=== PATIENT | female | born 1975 | race Caucasian/White ===

== ENCOUNTER 2024-03-25 07:40 | Observation (INO) ==
--- NOTE | 2024-03-15 14:50 | Anesthesiology Consultation ---
Date of Service March 15, 2024 Assessment & Plan (1) Encounter for pre-operative examination: Chart Review Chart Review: Acceptable Risk for Surgery and Patient NOT seen in Pre Admission Testing Infectious Disease screening: Per PAT nursing assessment on 03/15/24, No known infectious disease contacts in past 10 days or current infectious disease symptoms. No recent travel outside the country. History Surgery Operation Date: 03/25/24 07:00 Proposed Procedures p Total Laparoscopic Hysterectomy, Bilateral Salpingectomy and Cystoscopy, Possible Laparotomy as any Indicated Procedure, Intrauterine Device Removal - Connor Adams MD Height/Weight Height: 5 ft 6 in Weight: 92.986 kg Allergies Allergy/AdvReac Type Severity Reaction Status Date / Time No Known Allergies Allergy Verified 03/15/24 13:38 Medications Home Medications Medication Instructions Recorded Confirmed Last Taken atogepant 60 mg tablet (Qulipta) 60 mg PO QPM 03/15/24 03/15/24 Unknown fexofenadine 180 mg tablet 180 mg PO QPM 03/15/24 03/15/24 Unknown montelukast 10 mg tablet 10 mg PO PM 03/15/24 03/15/24 Unknown rizatriptan 10 mg tablet 0 mg PO .COMPLEX PRN migraines 03/15/24 03/15/24 Unknown Past Medical History Medical History (Updated 03/15/24 @ 15:02 by Rosanne Carrillo PA-C) Environmental allergies History of asthma inhaler in past, resolved in her 20's History of use of contraceptive intrauterine device (IUD) Hx of migraines approx. 2 per month, much better since quilipta IUD (intrauterine device) in place Obesity Past Surgical History Surgical History (Updated 03/15/24 @ 15:02 by Rosanne Carrillo PA-C) History of hysteroscopy D&C, hysteroscopy Remove/insert IUD Social History Smoking Status: Never smoker Do You Dip or Chew Tobacco: No Hx Alcohol Use: No Hx Substance Use: No substance use type: does not use Testing Laboratory Results 03/14/24: WBC: 7.41 H/H: 13.9/42.2 PLATELETS: 322
[~2024-03-25 07:40] MED LIST: DEXAMETHASONE SOD INJ 4 MG/ML VIAL ONE; KETOROLAC 30 MG/ML VIAL ONE; LIDOCAINE 2% 2 ML VIAL/AMP(20MG/ML) INFIL ONE; MIDAZOLAM HCL 1 MG/ML 2ML VIAL ONE; ONDANSETRON INJ 2 MG/ML 2 ML VIAL ONE; PROPOFOL IV EMULSION 10 MG/ML 20 ML VIAL IV ONE; ROCURONIUM BROMIDE 10 MG/ML 5 ML VIAL IV ONE
[2024-03-25] MEDS ORDERED: fentaNYL citrate PF 100 MCG/2 ML VIAL ONE (07:41)
[2024-03-25] MEDS: LACTATED RINGER'S 1,000 ML IV SCH ×2 (08:32)
--- NOTE | 2024-03-25 09:20 | History & Physical Bridge Note ---
Date of Service March 25, 2024 History & Physical Bridge Note I have examined the patient, reviewed the History & Physical and in the interval since the performance of the History & Physical I have noted the following changes of clinical significance: no changes noted
[2024-03-25] MEDS ORDERED: ATROPINE SULFATE 0.1 MG/ML 10ML SYR IV PRN (09:24)
[2024-03-25] MEDS ORDERED: ePHEDrine sulfate 50 MG/ML AMP IV PRN (09:24)
[2024-03-25] MEDS ORDERED: ACETAMINOPHEN 1000 MG/100 ML IV IV ONE (09:27)
[2024-03-25] MEDS: ceFAZolin 2000MG 2,000 MG/15 ML SYR IV SCH (09:35)
[2024-03-25] MEDS ORDERED: ROCURONIUM BROMIDE 10 MG/ML 5 ML VIAL IV ONE (10:00)
[2024-03-25] MEDS ORDERED: GLYCOPYRROLATE 0.2 MG/ML VIAL ONE (10:31)
[2024-03-25] MEDS ORDERED: SUGAMMADEX SODIUM 200 MG/2 ML VIAL IV ONE (10:33)
[2024-03-25] MEDS: BUPIVACAINE/EPINEPHRINE 0.5% MPF 1:200,000 30 ML VIAL ONE (11:43)
[2024-03-25] MEDS: FLOSEAL HEMOSTATIC MATRIX 10ML TOP ONE (11:48)
[2024-03-25] MEDS ORDERED: PROMETHAZINE 12.5 MG/50.5 ML BAG IV PRN (12:06)
[2024-03-25] MEDS ORDERED: MAGNESIUM HYDROXIDE SUSP 30 ML UDC PO PRN (12:06)
[2024-03-25] MEDS ORDERED: ONDANSETRON INJ 2 MG/ML 2 ML VIAL IV PRN (12:06)
[2024-03-25] MEDS ORDERED: ZOLPIDEM TARTRATE 5 MG TAB PO PRN (12:06)
--- NOTE | 2024-03-25 12:21 | Operative Report ---
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 Laparoscopic findings showed 16 weeks size fibroid uterus both ureters were identified ovaries appear grossly normal appendix appeared normal Fluids IVF:900ml urine ; 300ml EBL; 10ml Specimens Uterus and cerix, left and right fallopian tubes Drains none Anesthesia Type General Complications none Indications 1. Endometrial intraepithelial neoplasm 2. fibroid uterus Description of Procedure FINDINGS: DESCRIPTION OF PROCEDURE: The patient was prepped and draped in normal sterile fashion in the dorsal lithotomy position. Hewitt catheter was placed without difficulty. An Shopalytic uterine manipulator was placed in the uterus to help with colpotomy. Attention was paid to the abdominal part of the procedure where a supraumbilical incision was made and carried down to the fascia. Elena was used to grab the fascia. Veress needle was introduced into the abdomen at a 45-degree angle while tenting up the abdomen. Intra-abdominal placement was confirmed with a water-filled syringe. A water drop and suction test was performed. The abdomen was insufflated with CO2 gas. The Veress needle was removed and a 5 mm non bladed trocar was attached to a laparoscope was introduced into the abdomen u nder direct visualization. This was a non bladed trocar. Once inside the abdomen, laparoscope was repositioned. Inspection of the abdomen shows the findings as dictated above. Three more accessory ports were placed, two 5 mm accessory ports were placed in the lower abdomen on the contralateral side, in addition, an 11 mm trocar was placed on the left upper quadrant. General inspection of the abdomen and pelvis was performed as dictated above. There was good hemostasis. 16 week sixe fibroid uterus is present . Left and right fallopian tubes, the ureters, uterosacrals, bowels were examined and identified. LigaSure was passed through the left accessory port. The fallopian tube was identified and grabbed 4 cm from the cornua of the uterus with the LigaSure and transected. This was followed by opening of the left anterior leaf of the broad ligament. This allowed for fenestration of the posterior left broad ligament. The mid-section of the left fallopian tube, utero-ovarian and meso-ovarian pedicles were transected as well. Same procedure was performed on the contralateral side. The anterior broad ligament dissection was carried to the mid-section of the vesicouterine peritoneum over the bladder using the Harmonic scalpel. Same procedure was carried out on the contralateral side. The posterior broad ligament peritoneum was carefully dissected also from both sides over the uterosacral arch in order to displace the ureters laterally. Using traction and countertraction, the [place] retractor and irrigation probe was used to further dissect the bladder off the lower segment of the uterus. Bladder pillars and pubovesical fascia was dissected as well. Harmonic scalpel was used to obtain hemostasis where needed. Uterine manipulator was now palpable over the vaginal tissue. The right uterine pedicles were skeletonized and coagulated with the LigaSure. Good hemostasis was obtained.Myoma screw is used for additional manipulation of the fibroid in order to provide better visualization Same procedure was performed on the contralateral side. Cardinal ligaments were transected on both sides. Once good hemostasis was obtained, colpotomy was performed using the LigaSure hook from both sides.the uterine manipulator was removed. Uterus was too large to be remove din one piece through the vagina. The large uterus had to be cut in smaller pieces in order to be able to remove it through the vagina. The bulb was attached to the uterine manipulator was reinserted into the vagina to establish pneumoperitoneum. With a grasper, the remaining section of the left ovary and tube were positioned anteromedially. The left fallopian tube is grabbed with ligature and transected. The transection is done close to the ovary in order to preserve the ovarian vascular integrity. The left tube is removed through the 11 mm port leaving the left ovary left intact. Same procedures performed on the right adnexa. The right fallopian tube is also removed once again leaving the right ovary behind.Right fallopian tube specimen is also removed through the 11 mm port. Both fallopian tube specimens sent to pathology for pathological analysis EndoStitch closure device was passed through the 11 mm port on the left. Using the [place] grasper for traction, colpotomy closure was performed. The uterosacral ligaments incorporated into the closure in order to decrease the risk of prolapse. Lapro ties were used with the EndoStitch. The 11-mm trocar site was closed with a Wisam-Guillermo under direct visualization. Attention was paid to the cystoscopy part of the procedure where a cystoscope was introduced into the bladder. There are no sutures seen in the bladder. There were no gross blood seen in the bladder as well. The bubble sign is noted showing the bladder was a close cavity. Both ureters were seen and there was efflux from both uterus. The skin incisions are closed with Dermabond, except for the 11-mm trocar site, which was closed with 4-0 Monocryl. The patient was returned to recovery in stable condition. Inspection of the vagina shows the vaginal cuff was intact. All instruments were removed from the vagina and the bladder and accounted for x2. Hr Business Partner was necessary for retraction and manipulation of instruments in order to provide for a safe operation I attest to the content of the Intraoperative Record and any orders documented therein. Any exceptions are noted below.
[2024-03-25] MEDS: fentaNYL citrate PF 100 MCG/2 ML VIAL IV PRN (12:27)
[2024-03-25] MEDS: ONDANSETRON INJ 2 MG/ML 2 ML VIAL IV PRN (12:30)
--- NOTE | 2024-03-25 13:03 | Anesthesiology Progress Note ---
Date of Service March 25, 2024 Anesthesia Post Procedure Vital Signs Vital Signs: Temp Pulse Pulse Resp BP Pulse Ox O2 Del Method 03/25/24 12:40 97.9 F 74 18 115/80 100 Room Air 03/25/24 12:30 53 L 14 117/78 98 Room Air 03/25/24 12:20 51 L 15 114/79 98 Room Air 03/25/24 12:10 65 23 124/83 99 Oxymask 03/25/24 12:00 51 L 14 114/72 99 Oxymask 03/25/24 11:56 97.5 F L 51 L 25 H 109/69 99 Oxymask 03/25/24 08:05 98.1 F 69 18 126/74 98 Room Air O2 Flow Rate 03/25/24 12:40 03/25/24 12:30 03/25/24 12:20 03/25/24 12:10 2 03/25/24 12:00 4 03/25/24 11:56 4 03/25/24 08:05 Pain Intensity Anterior Abdomen: Pain Intensity: 2 Transfer of Care Handoff Completed per policy Notes Mental Status: alert / awake / arousable and participated in evaluation Patient Amnestic to Procedure: Yes Nausea / Vomiting: adequately controlled Pain: adequately controlled and improving with treatment Airway Patency, RR, SpO2: stable & adequate BP & HR: stable & adequate Hydration State: stable & adequate Anesthetic Complications: no major complications apparent and Pt Satisfied with anesthetic care
[2024-03-25] MEDS: IBUPROFEN 600 MG TAB PO PRN (13:41)
[2024-03-25] MEDS: oxyCODONE/ACETAMINOPHEN 5mg/325mg TAB PO PRN (13:41)
[2024-03-25] MEDS: SIMETHICONE 80 MG CHEW PO PRN (17:37)
[2024-03-25] MEDS ORDERED: RIZATRIPTAN BENZOATE 10 MG TAB PO PRN (19:04)
[2024-03-25] MEDS: DOCUSATE SODIUM 100 MG CAP PO SCH (20:34)
[2024-03-25] MEDS: MONTELUKAST SODIUM 10 MG TABLET PO SCH (20:35)
[2024-03-25] MEDS: FEXOFENADINE HCL 180 MG TAB PO SCH (20:35)
[2024-03-25 22:52] VITALS: PULSE 73
[2024-03-26 03:56] VITALS: BP 108/70; RESP 16; TEMP 98.8; O2SAT 97
[2024-03-26 07:58] LABS: BUN Creatinine Ratio 13.6 (10-20); Calcium 8.3 mg/dl (8.6-10.3); Creatinine Clr Calc Pharmacy 117.7 ml/min; Potassium 3.6 mmol/L (3.5-5.1)
[2024-03-26 07:59] LABS: Basophils # (auto) 0.02 K/uL (0.00-0.20); Basophils % (auto) 0.2 %; Eosinophils # (auto) 0.03 K/uL (0.00-0.50); Eosinophils % (auto) 0.3 %; Hematocrit (blood only) 37.8 % (37.0-47.0); Hemoglobin 12.4 g/dl (12.0-16.0); Immature Granulocytes # (auto) 0.03 K/uL (0.01-0.20); Immature Granulocytes % (auto) 0.3 %; Lymphocytes # (auto) 1.51 K/uL (1.20-3.40); Lymphocytes % (auto) 17.2 %; Mean Corpuscular Hemoglobin 27.2 pg (25.0-34.0); Mean Corpuscular Hgb Conc 32.8 g/dL (32.0-36.0); Mean Corpuscular Volume 82.9 fL (80.0-100.0); Mean Platelet Volume 10.1 fL (9.4-12.4); Monocytes # (auto) 0.75 K/uL (0.11-0.59); Monocytes % (auto) 8.5 %; Neutrophils # (auto) 6.45 K/uL (1.40-6.50); Neutrophils % (auto) 73.5 %; Platelet Count 248 K/uL (130-400); RDW Coefficient of Variation 15.1 % (11.5-14.5); RDW Standard Deviation 45.1 fL (36.4-46.3); Red Blood Count 4.56 M/uL (4.20-5.40); White Blood Count 8.79 K/ul (4.8-10.8)
--- NOTE | 2024-03-26 08:56 | Obstetrical Progress Note ---
Date of Service March 26, 2024 Assessment & Plan (1) Postop check: Pt doing well no complaints d/c home with instructions Physical Exam Constitutional WD/WN, vitals as above Eyes PERRL, conjunctivae normal, anicteric sclerae ENMT external ear and nose normal, oropharynx normal Neck trachea midline, no thyromegaly Respiratory normal respiratory effort, lungs clear to auscultation Cardiovascular RRR, no murmur, no edema Chest (Breasts) normal inspection/palpation of breasts Gastrointestinal (Abdomen) normal bowel sounds, soft, nontender, no hepatosplenomegaly Musculoskeletal no cyanosis or clubbing, extremities motor strength 5/5 Skin + incision (Incision clean,dry and intact) Neurologic patellar DTR's 2+ bilat, sensation intact Psychiatric A+Ox3, euthymic affect Genitourinary no vaginal lesions, no adnexal mass Lymphatic no cervical or axillary lymphadenopathy Results & Data Vital Signs (Past 12 Hours) Vital Signs Temp Pulse Resp BP Pulse Ox O2 Del Method 03/26/24 03:10 37.1 C 73 16 108/70 97 Room Air 03/25/24 22:51 37 C 73 18 119/80 98 Room Air
--- OUTSIDE RECORDS SUMMARY | 2024-03-26 09:02 | External Medical Summary | Summary of Care ---
Author Name Unknown Organization [facility] Address [address] [place] [address] Phone [phone] Care Team Providers Care Water Resources Business Segment Leader Name Role Phone Deann Escalante Primary Care Provider Encounter Details Date Type Department Care Team (Late st Contact Info) Description 03/25/2024 Result Scan Unspecified Department <No scans attached> Allergies Active Allergy Reactions Criticality Noted Date Comments Cat Dander 12/09/2023 Dog Dander 12/09/2023 Dust 02/20/2017 Molds & Smuts 12/29/2023 Other Allergy (See Comments) 018 Animal dander Pollen 02/20/2017 documented as of this encounter (statuses as of 03/25/2024) Medications RODOLFO 180 MG PO TABS Take 1 Tablet by mouth at bedtime. 30 Tab 6 10/29/19 12 Active ketotifen fumarate (ZADITOR) 0.025 % ophthalmic solution Instill 1 Drop into both eyes 2 times a day as needed for Allergies. 5 mL 0 05/15/19 16 Active Riboflavin 400 MG Oral Tablet Take 1 Tablet by mouth in the morning. 30 Tablet 2 10/17/19 23 Active Betamethasone Dipropionate 0.05 % External Cream (Diprosone)Indica tions:Eczema of both hands APPLY TOPICALLY TO AFFECTED AREA(S) OF ARMS AND FEET TWO TIMES DAILY 45 g 3 04/30/19 24 Active Montelukast Sodium 10 MG Oral Tablet (Singulair)Indica tions:Seasonal allergic rhinitis due to pollen TAKE 1 TABLET BY MOUTH AT BEDTIME 90 Tablet 3 05/10/19 24 Active Fluticasone Propionate 50 MCG/ACT Nasal Suspension (Flonase)Indicati ons:Seasonal allergic rhinitis due to pollen USE 2 SPRAYS IN EACH NOSTRIL TWO TIMES DAILY 15.8 mL 5 07/07/19 24 Active Magnesium Oxide -Mg Supplement 400 (240 Mg) MG Oral Tablet (Mag-Ox) TAKE 1 TABLET BY MOUTH EVERY MORNING 30 Tablet 8 09/23/19 24 Active Rizatriptan Benzoate 10 MG Oral Tablet (Maxalt)Indicatio ns:Chronic migraine without aura with status migrainosus, not intractable TAKE 1 TABLET BY MOUTH NEEDED FOR MIGRAINE. MAY REPEAT AFTER 2 HOURS UP TO TWO TIMES DAILY, MAXIMUM DAILY DOSE OF 3 TABETS PER DAY 20 Tablet 3 10/14/19 24 Active Typhoid Vaccine Oral Capsule Delayed Release Take 1 Capsule by mouth every other day. 4 Capsule 12/07/19 24 Active Iron 90 (18 Fe) MG Oral Tablet Take by mouth at bedtime. Active Docusate Sodium 100 MG Oral Capsule (Colace) Take 1 Capsule by mouth at bedtime. Active Botox 100 UNIT Injection Solution Reconstituted (botulinum toxin type a)Indications:Int ractable chronic migraine without aura and without status migrainosus Inject 200 units subcutaneously and IM according to the PREEMPT protocol for chronic migraine Active Ibuprofen 600 MG Oral Tablet (Motrin) Take 1 Tablet by mouth in the morning and 1 Tablet at noon and 1 Tablet before bedtime. With meals.. 30 Tablet 12/17/19 24 Active Azithromycin 500 MG Oral Tablet (Zithromax)Indica tions:Travel advice encounter Take 1 Tablet by mouth in the morning. 3 Tablet 12/29/19 24 Active Azithromycin 250 MG Oral Tablet (Zithromax Z-Alec) Take two tablets by mouth on first day, then 1 tablet daily until gone 6 Tablet 12/31/19 24 Active Typhoid Vaccine Oral Capsule Delayed Release Take 1 Capsule by mouth every other day. 4 Capsule 12/31/19 24 Active Qulipta 60 MG Oral Tablet (Atogepant) Take 60 mg by mouth at bedtime. 30 Tablet 3 02/04/20 24 Active documented as of this encounter (statuses as of 03/25/2024) Active Problems Problem Noted Date Diagnosed Date Menorrhagia with regular cycle 11/27/2023 Bunion of great toe of left foot 02/24/2017 Other chronic allergic conjunctivitis 06/24/2011 Allergic rhinitis 06/24/2011 Atopic dermatitis 06/24/2011 Migraine 05/27/2011 documented as of this encounter (statuses as of 03/25/2024) Immunizations Name Administration Dates Next Due COVID-19 mRNA, LNP-s, No Pre serve, 2-Dose Series (Moderna) 01/27/2021,06/22/2020,05/25/2020 Covid-19, Mrna, Lnp-s, Pf, B ivalent, 30 Mcg, IM, 12 yrs and above (Pfizer) 01/15/2022 H1N1 2009 Influenza, IM 01/25/2009 HEP A - Hepatitis A (Adult > 18 yrs) 12/01/2023 PPD 07/17/2021,08/21/2016 Seasonal Influenza Vac., MDV , IM, 0.5 mL (Fluzone) 11/07/2014,11/07/2013 Seasonal Influenza, PF, 6 M & above, IM , (FluLaval or Fluzone) 11/27/2022,01/15/2022,12/01/2020, 020,01/07/2019,02/20/2017 Seasonal Influenza, Quadriva lent, No Preserve, IM 03/10/2016 Seasonal Influenza, Trivalen t, (IIV3), PF, (Fluzone) 11/17/2023 TD - Tetanus/Diptheria (ADULT) 06/06/2011 TDAP (age 10 and older)(Boostrix) 04/18/2021 TDAP, Age 7 and older, IM (Adacel) 01/25/2009 documented as of this encounter Social History Tobacco Use Types Packs/Day Years Used Date Smoking Tobacco: Never Smokeless Tobacco: Never Comments:no passive smoke Alcohol Use Standard Drinks/Week Comments No 0 (1 standard drink = 0.6 oz pur e alcohol) PHQ-2 Answer Date Recorded PHQ-2 Score 0 01/30/2020 Hunger Vital Sign Answer Date Recorded Within the past 12 months, y ou worried that your food would run out before you got the money to buy more. Never true 12/02/19 24 Within the past 12 months, t he food you bought just didn't last and you didn't have money to get more. Never true 12/02/2023 Childcare Answer Date Recorded Do you feel overwhelmed with taking care of a child, family member or friend? No 12/02/2023 Does your family need help f inding childcare? (Household - for ages 0-17 years) Not on file 12/02/2023 Clothing Answer Date Recorded Have you been unable to get clothing when it was really needed? No 12/02/2023 Is your family able to get c lothes or diapers when needed? (Household - for ages 0-17 years) Not on file 12/02/2023 Personal Safety Answer Date Recorded Do you feel unsafe or have concerns for your saf ety? No 12/02/2023 Do you have concerns for you r family's safety? (Household - for ages 0-17 years) Not on file 12/02/2023 Utilities Answer Date Recorded Do you have trouble paying y our heating, water, or electric bill? No 12/02/2023 Is your family able to pay t he heat, water, or electric bill? (Household - for ages 0-17 years) Not on file 12/02/2023 Does your family have access to good internet? (Household - for ages 0-17 years) Not on file 12/02/2023 Employment Status Answer Date Recorded Are you unemployed or without regular income? No 12/02/2023 Does the household have a re gular source of income? (Household - for ages 0-17 years) Not on file 12/02/2023 Social Connections Answer Date Recorded How often do you feel lonely or isolated from those around you? Sometimes 12/02/2023 Financial Resource Strain Answer Date R ecorded Do you have any trouble payi ng for your medications, or do you think you might in the future? No 12/02/2023 Does your family have troubl e paying for medicine? (Household - for ages 0-17 years) Not on file 12/02/2023 Transportation Needs Answer Date Record ed Do you have trouble getting a ride to medical visits or work? (Adult - for ages 18 years and over) Not on file 12/02/2023 Does your family have a hard time getting a ride to doctors visits? (Household - for ages 0-17 years) Not on file 12/02/2023 Has lack of transportation k ept you from medical appointments, meetings, work, or from getting things needed for daily living? Check all that apply. No 12/02/2023 Do you (or your family) have trouble finding or paying for a ride (transportation)? (Household - for ages 0-17 years) Not on file 12/02/2023 Housing Stability Answer Date Recorded Do you currently live in a s helter or have no steady place to sleep at night? No 12/02/2023 Do you think you are at risk of becoming homeless? (Adult - for ages 18 years and over) Not on file 12/02/2023 Does your family worry about paying for your home or becoming homeless? (Household - for ages 0-17 years) Not on file 1 Are you homeless or worried that you might be in the future? No 12/02/2023 Are you (or your family) shimon eless or worried that you might be in the future? (Household - for ages 0-17 years) Not on file Food Insecurity Answer Date Recorded Do you need food for this week? No 12/02/2023 Are you able to get enough f ood for your family? (Household - for ages 0-17 years) Not on file 12/02/2023 Does your family need food t his week? (Household - for ages 0-17 years) Not on file 12/02/2023 Do you always have enough fo od for your family? (Household - for ages 0-17 years) Not on file 12/02/2023 Food Insecurity Answer Date Recorded Within the past 12 months, y ou worried that your food would run out before you got the money to buy more. Never true 12/02/19 24 Within the past 12 months, t he food you bought just didn't last and you didn't have money to get more. Never true 12/02/2023 Do you need food for this week? No 12/02/2023 Comments No Sex and Gender Information Value Date Recorded Sex Assigned at Female 11/17/2022 1:43 PM EDT Legal Sex Female 6:57 AM EST Gender Identity Female 11/17/2022 1:43 PM EDT Sexual Orientation Straight 11/17/2022 1: 43 PM EDT Travel History Travel Start Travel End [place] 03/01/2024 03/07/2024 documented as of this encounter Plan of Treatment Upcoming Encounters Date Type Department Care Team (Late st Contact Info) Description 04/06/2024 9:30 AM EST Office Visit Gynecology/Obstetrics [facility] [address] [place] [id number] Connor Adams MD [address] [place] [id number] 05/27/2024 3:40 PM EDT Office Visit Neurology [facility] [address] [place] [address] Tarah Kerr MD [address] [place] [address] 12/02/2024 3:00 PM EDT Office Visit Family Practice [facility] [address] [place] [id number] Deann Escalante DO [address] [place] [id number] Health Maintenance Due Date Last Done Comments Hepatitis B Vaccine (1 of 3 - 19+ 3-dose series) 1993 Colonoscopy 10/31/2019 Fecal Occult Blood Test 10/31/2019 Sigmoidoscopy 10/31/2019 Depression Screening 01/29/2021 01/30/2020 COVID-19 Vaccine ( season) 2023 01/15/2022, 01/27/2021, 06/22/2020, Additional history exists Cologuard 05/07/2024 05/07/2021, 04/16, 05/02/2021 Colorectal Cancer Screening 05/07/2024 Mammogram 01/06/2025 01/07/2024, 11/18, 04/08/2021, Additional history exists Diabetes Screening 11/16/2026 11/17/2023, 0 10/27/2023, 02/14/2020, Additional history exists Lipid Panel 11/16/2028 11/17/2023, 10/17, 07/06/2018, Additional history exists DTap/Tdap Vaccines (4 - Td or Tdap) 04/19/2031 04/18/2021, 06/06/2011, 01/25/2009 Influenza Vaccine (FLU shot) Completed 11/17/2023, 11/27/2022, 01/15/2022, Additional history exists HIV Screening Discontinued HPV (Gardasil) Vaccine Aged Out No lo nger eligible based on patient's age to complete this topic Hepatitis C Screening Discontinued MENINGOCOCCAL (MENACTRA/MENVEO) Aged Out No longer eligible based on patient's age to complete this topic Pneumococcal Vaccine: Pediatrics (0 to 5 Years) and At-Risk Patients (6 to 18 Years and 19+ Years) Aged Out No longer eligib le based on patient's age to complete this topic documented as of this encounter Medical Devices Not on filedocumented as of this encounter Procedures Procedure Name Priority Date/Time Associated Diagnosis Comments OUTSIDE LAB RESULTS 03/25/2024 documented in this encounter Results * OUTSIDE LAB RESULTS (03/25/2024) 03/25/2024 us No Physician Data Unknown LABORATORY Final Result documented in this encounter Care Teams [employer] Business Segment Leader Relationship Specialty Start Date End Date Deann Escalante DO [address] [place] [address] PCP - General Family Medicine 05/05/11 documented as of this encounter
--- OUTSIDE RECORDS SUMMARY | 2024-03-26 09:02 | External Medical Summary | Summary of Care ---
Author Name Unknown Organization [facility] Address [address] [place] [address] Phone [phone] Care Team Providers Care Band Saw Marker Name Role Phone Boris Deann Mascorro DO Primary Care Provider Reason for Visit * Reason Comments eRx-Medication Refill Encounter Details Date Type Department Care Team (Late st Contact Info) Description 02/03/2024 Refill Neurology [facility] [place] [address] [place] [address] Tarah Desai PA-C [address] [place] [address] Allergies Active Allergy Reactions Criticality Noted Date Comments Cat Dander 12/09/2023 Dog Dander 12/09/2023 Dust 02/20/2017 Molds & Smuts 12/29/2023 Other Allergy (See Comments) 018 Animal dander Pollen 02/20/2017 documented as of this encounter (statuses as of 02/04/2024) Medications RODOLFO 180 MG PO TABS Take 1 Tablet by mouth at bedtime. 30 Tab 6 012 Active ketotifen fumarate (ZADITOR) 0.025 % ophthalmic solution Instill 1 Drop into both eyes 2 times a day as needed for Allergies. 5 mL 0 016 Active Riboflavin 400 MG Oral Tablet Take 1 Tablet by mouth in the morning. 30 Tablet 2 023 Active Betamethasone Dipropionate 0.05 % External Cream (Diprosone)Indic ations:Eczema of both hands APPLY TOPICALLY TO AFFECTED AREA(S) OF ARMS AND FEET TWO TIMES DAILY 45 g 3 024 Active Montelukast Sodium 10 MG Oral Tablet (Singulair)Indic ations:Seasonal allergic rhinitis due to pollen TAKE 1 TABLET BY MOUTH AT BEDTIME 90 Tablet 3 024 Active Fluticasone Propionate 50 MCG/ACT Nasal Suspension (Flonase)Indicat ions:Seasonal allergic rhinitis due to pollen USE 2 SPRAYS IN EACH NOSTRIL TWO TIMES DAILY 15.8 mL 5 024 Active Magnesium Oxide -Mg Supplement 400 (240 Mg) MG Oral Tablet (Mag-Ox) TAKE 1 TABLET BY MOUTH EVERY MORNING 30 Tablet 8 024 Active Rizatriptan Benzoate 10 MG Oral Tablet (Maxalt)Indicati ons:Chronic migraine without aura with status migrainosus, not intractable TAKE 1 TABLET BY MOUTH NEEDED FOR MIGRAINE. MAY REPEAT AFTER 2 HOURS UP TO TWO TIMES DAILY, MAXIMUM DAILY DOSE OF 3 TABETS PER DAY 20 Tablet 3 024 Active Typhoid Vaccine Oral Capsule Delayed Release Take 1 Capsule by mouth every other day. 4 Capsule 024 Active Iron 90 (18 Fe) MG Oral Tablet Take by mouth at bedtime. Active Docusate Sodium 100 MG Oral Capsule (Colace) Take 1 Capsule by mouth at bedtime. Active Botox 100 UNIT Injection Solution Reconstituted (botulinum toxin type a)Indications:In tractable chronic migraine without aura and without status migrainosus Inject 200 units subcutaneously and IM according to the PREEMPT protocol for chronic migraine Active Ibuprofen 600 MG Oral Tablet (Motrin) Take 1 Tablet by mouth in the morning and 1 Tablet at noon and 1 Tablet before bedtime. With meals.. 30 Tablet 024 Active Azithromycin 500 MG Oral Tablet (Zithromax)Indic ations:Travel advice encounter Take 1 Tablet by mouth in the morning. 3 Tablet 024 Active Azithromycin 250 MG Oral Tablet (Zithromax Z-Alec) Take two tablets by mouth on first day, then 1 tablet daily until gone 6 Tablet 024 Active Typhoid Vaccine Oral Capsule Delayed Release Take 1 Capsule by mouth every other day. 4 Capsule Active Qulipta 60 MG Oral Tablet (Atogepant) Take 60 mg by mouth at bedtime. 30 Tablet 3 024 Active Qulipta 60 MG Oral Tablet (Atogepant) Take 60 mg by mouth in the morning. 30 Tablet 2 024 2023 Discontinued documented as of this encounter (statuses as of 02/04/2024) Active Problems Problem Noted Date Diagnosed Date Menorrhagia with regular cycle 11/27/2023 Bunion of great toe of left foot 02/24/2017 Other chronic allergic conjunctivitis 06/24/2011 Allergic rhinitis 06/24/2011 Atopic dermatitis 06/24/2011 Migraine 05/27/2011 documented as of this encounter (statuses as of 02/04/2024) Immunizations Name Administration Dates Next Due COVID-19 [...] ages 0-17 years) Not on file 12/02/2023 Comments No Sex and Gender Information Value Date Recorded Sex Assigned at Female 11/17/2022 1:43 PM EDT Legal Sex Female 6:57 AM EST Gender Identity Female 11/17/2022 1:43 PM EDT Sexual Orientation Straight 11/17/2022 1: 43 PM EDT documented as of this encounter Miscellaneous Notes * Telephone Encounter - Tarah Desai PA-C - 02/04/2024 9:32 AM EST Signed Prescriptions: Disp Refills Qulipta 60 MG Oral Tablet (Atogepant) 30 Tab*3 Sig: Take 60 mg by mouth at bedtime. Authorizing Provider: TARAH DESAI * Telephone Encounter - Ximena Olivares, MED ASSIST - 02/03/2024 3:35 PM EST Pending Prescriptions: Disp Refills Qulipta 60 MG Oral Tablet [Pharmacy Med Na*30 Tab*2 Sig: TAKE 1 TABLET BY MOUTH EVERY MORNING * Telephone Encounter - Misbah Kendall - 02/03/2024 2:22 PM ESTPending Prescriptions: Disp Refills Qulipta 60 MG Oral Tablet [Pharmacy Med Na*30 Tab*2 Sig: TAKE 1 TABLET BY MOUTH EVERY MORNING * Telephone Encounter - Misbah Kendall - 02/03/2024 2:21 PM EST Did you pend patient's preferred pharmacy and medication before forwarding?yes Pharmacy: [id number] Pending Prescriptions: Disp Refills Qulipta 60 MG Oral Tablet (Atogepant) [Ph*30 Tab*2 Sig: TAKE 1 TABLET BY MOUTH EVERY MORNING Last Visit: 12/15/2023 (in office), Visit date not found (telemedicine) Next Visit: 05/27/2024 If no future appointments scheduled, and last appointment is greater than a year ago, please schedule patient for a follow-up appointment Last date the medication was ordered: 11/17/2023 Is this request for a controlled substance?No Urine Drug Screen:No results found for this or any previous visit. Patient Phone Numbers Labs: Lab Results Component Value Date/Time CREAT 0.8 11/17/2023 02:17 PM CREAT 0.66 10/27/2023 12:00 AM CREAT 0.8 07/06/2018 07:22 AM POTASSIUM 4.7 11/17/2023 02:17 PM POTASSIUM 4.5 10/27/2023 12:00 AM POTASSIUM 4.5 07/06/2018 07:22 AM TSH 2.22 11/17/2023 02:17 PM LDL 138 (H) 11/17/2023 02:17 PM LDL 117 07/06/2018 07:22 AM LDL NOT APPLICABLE 07/06/2018 07:22 AM LDLCALC 137 (H) 10/27/2023 12:00 AM ALT 15 07/06/2018 07:22 AM documented in this encounter Plan of Treatment Upcoming Encounters Date Type Department Care Team (Late st Contact Info) Description 03/14/2024 3:30 PM EST Office Visit Gynecology/Obstetrics [facility] [address] [place] [address] Connor Adams MD [address] [place] [address] 04/06/2024 9:30 AM EST Office Visit Gynecology/Obstetrics [facility] [address] [place] [address] Connor Adams MD [address] [place] [address] 05/27/2024 3:40 PM EDT Office Visit Neurology [facility] [address] [facility] [place] [address] Tarah Kerr MD [address] [facility] [place] [address] 12/02/2024 3:00 PM EDT Office Visit Family Practice [facility] [address] [facility] [place] [address] Deann Escalante DO [address] [facility] [place] [address] Health Maintenance Due Date Last Done Comments [...] 5 Years) and At-Risk Patients (6 to 64 Years) Aged Out No longer eligible based on patient's age to complete this topic documented as of this encounter Medical Devices Not on filedocumented as of this encounter Care Teams Band Saw Marker Relationship Specialty Start Date End Date Deann Escalante DO [address] [place] [address] PCP - General Family Medicine 05/05/11 documented as of this encounter
--- OUTSIDE RECORDS SUMMARY | 2024-03-26 09:02 | External Medical Summary | Summary of Care ---
Author Name Unknown Organization [facility] Address [address] [place] [address] Phone [phone] Care Team Providers Care Navy Diver Name Role Phone Deann Escalante Primary Care Provider Reason for Visit * Reason Onset Date Comments Pre Op Discussion 12/09/2023 Encounter Details Date Type Department Care Team (Late st Contact Info) Description 12/09/2023 Telephone Pre Surgery Center, [facility] [address] [place] [address] Connor Adams MD [address] [place] [address] Pre Op Discussion Allergies Active Allergy Reactions Criticality Noted Date Comments Cat Dander 12/09/2023 Dog Dander 12/09/2023 Dust 02/20/2017 Molds & Smuts 12/29/2023 Other Allergy (See Comments) 018 Animal dander Pollen 02/20/2017 documented as of this encounter (statuses as of 02/18/2024) Medications RODOLFO 180 MG PO TABS Take 1 Tablet by mouth at bedtime. 30 Tab 6 10/29/19 12 Active ketotifen fumarate (ZADITOR) 0.025 % ophthalmic solution Instill 1 Drop into both eyes 2 times a day as needed for Allergies. 5 mL 0 03/29/20 16 Active Riboflavin 400 MG Oral Tablet [...] other day. 4 Capsule 12/07/19 24 Active Qulipta 60 MG Oral Tablet (Atogepant) Take 60 mg by mouth in the morning. 30 Tablet 2 11/17/19 24 024 Discontinued documented as of this encounter (statuses as of 02/18/2024) Active Problems Problem Noted Date Diagnosed Date Menorrhagia with regular cycle 11/27/2023 Bunion of great toe of left foot 02/24/2017 Other chronic allergic conjunctivitis 06/24/2011 Allergic rhinitis 06/24/2011 Atopic dermatitis 06/24/2011 Migraine 05/27/2011 documented as of this encounter (statuses as of 02/18/2024) Immunizations Name Administration Dates Next Due COVID-19 [...] PM EDT documented as of this encounter Plan of Treatment Upcoming Encounters Date Type Department Care Team (Late st Contact Info) Description 03/14/2024 3:30 PM EST Office Visit Gynecology/Obstetrics [facility]ie [facility] [address] [address] Connor Adams MD [address] [place] [address] 04/06/2024 9:30 AM EST Office Visit Gynecology/Obstetrics [facility] [place] [address] [address] Connor Adams MD [address] [place] [address] 05/27/2024 3:40 PM EDT Office Visit Neurology [facility] [place] [address] [place] [address] Tarah Kerr MD 200 [facility] [place] [address] 12/02/2024 3:00 PM EDT Office Visit Family Practice [facility] [place] [address] [facility] [place] [address] Deann Escalante, [address] [facility] [place] [address] Health Maintenance Due Date Last Done Comments [...] filedocumented as of this encounter Care Teams Navy Diver Relationship Specialty Start Date End Date Deann Escalante DO [address] [place], [place] [phone] PCP - General Family Medicine 05/05/11 documented as of this encounter
--- OUTSIDE RECORDS SUMMARY | 2024-03-26 09:02 | External Medical Summary | Summary of Care ---
Author Name Unknown Organization [facility] Address [address] [place] [address] Phone [phone] Care Team Providers Care Shirt Sorter Name Role Phone Deann Escalante DO Primary Care Provider Encounter Details Date Type Department Care Team (Late st Contact Info) Description 12/04/2023 Telephone Family Practice [facility] [place] [address] [place] [address] Deann Escalante DO [address] [facility] [place] [address] Allergies Active Allergy Reactions Criticality Noted Date Comments Cat Dander 12/09/2023 Dog Dander 12/09/2023 Dust 02/20/2017 Molds & Smuts 12/29/2023 Other Allergy (See Comments) 018 Animal dander Pollen 02/20/2017 documented as of this encounter (statuses as of 03/04/2024) Medications RODOLFO 180 MG PO TABS Take 1 Tablet by mouth at bedtime. 30 Tab 6 2 Active ketotifen fumarate (ZADITOR) 0.025 % ophthalmic solution Instill 1 Drop into both eyes 2 times a day as needed for Allergies. 5 mL 0 6 Active Riboflavin 400 MG Oral Tablet Take 1 Tablet by mouth in the morning. 30 Tablet 2 3 Active Betamethasone Dipropionate 0.05 % External Cream (Diprosone)Indica tions:Eczema of both hands APPLY TOPICALLY TO AFFECTED AREA(S) OF ARMS AND FEET TWO TIMES DAILY 45 g 3 4 Active Montelukast Sodium 10 MG Oral Tablet (Singulair)Indica tions:Seasonal allergic rhinitis due to pollen TAKE 1 TABLET BY MOUTH AT BEDTIME 90 Tablet 3 4 Active Fluticasone Propionate 50 MCG/ACT Nasal Suspension (Flonase)Indicati ons:Seasonal allergic rhinitis due to pollen USE 2 SPRAYS IN EACH NOSTRIL TWO TIMES DAILY 15.8 mL 5 4 Active Magnesium Oxide -Mg Supplement 400 (240 Mg) MG Oral Tablet (Mag-Ox) TAKE 1 TABLET BY MOUTH EVERY MORNING 30 Tablet 8 4 Active Rizatriptan Benzoate 10 MG Oral Tablet (Maxalt)Indicatio ns:Chronic migraine without aura with status migrainosus, not intractable TAKE 1 TABLET BY MOUTH NEEDED FOR MIGRAINE. MAY REPEAT AFTER 2 HOURS UP TO TWO TIMES DAILY, MAXIMUM DAILY DOSE OF 3 TABETS PER DAY 20 Tablet 3 4 Active Typhoid Vaccine Oral Capsule Delayed Release Take 1 Capsule by mouth every other day. 4 Capsule 4 Active documented as of this encounter (statuses as of 03/04/2024) Active Problems Problem Noted Date Diagnosed Date Menorrhagia with regular cycle 11/27/2023 Bunion of great toe of left foot 02/24/2017 Other chronic allergic conjunctivitis 06/24/2011 Allergic rhinitis 06/24/2011 Atopic dermatitis 06/24/2011 Migraine 05/27/2011 documented as of this encounter (statuses as of 03/04/2024) Immunizations Name Administration Dates Next Due COVID-19 [...] EDT Travel History Travel Start Travel End [facility] 03/01/2024 03/07/2024 documented as of this encounter Miscellaneous Notes * Telephone Encounter - Deann Escalante DO - 12/04/2023 9:24 AM EDT Images from the original note were not included. Elevation of kathleen map documented in this encounter Plan of Treatment Upcoming Encounters Date Type Department Care Team (Late st Contact Info) Description 03/14/2024 3:30 PM EST Office Visit Gynecology/Obstetrics [facility] [address] [place] [address] Connor Adams MD [address] [place] [address] 04/06/2024 9:30 AM EST Office Visit Gynecology/Obstetrics [facility] [address] [place] [address] Connor Adams MD [address] [place] [address] 05/27/2024 3:40 PM EDT Office Visit Neurology [facility] [address] [facility] [place] [address] Tarah Kerr MD [address] [facility] [place] [address] 12/02/2024 3:00 PM EDT Office Visit Family Practice [facility] [address] [facility] [place] [address] Deann Escalante, [address] [facility] [place] [address] Health Maintenance Due Date Last Done Comments [...] filedocumented as of this encounter Care Teams Shirt Sorter Relationship Specialty Start Date End Date Deann Escalante DO [address] [place] [address] PCP - General Family Medicine 05/05/11 documented as of this encounter
--- OUTSIDE RECORDS SUMMARY | 2024-03-26 09:02 | External Medical Summary | Summary of Care ---
Author Name Unknown Organization [facility] Address [address] [place] [address] Phone [phone] Care Team Providers Care Vp Product Name Role Phone John PaulnickolasDeann DO Primary Care Provider Encounter Details Date Type Department Care Team (Late st Contact Info) Description 03/23/2024 Orders Only Neurology [facility] [place] [address] [place] [address] John Mcelroy DO [address] [place] [address] Intractable chronic migraine without aura and without status migrainosus* Allergies Active Allergy Reactions Criticality Noted Date Comments Cat Dander 12/09/2023 Dog Dander 12/09/2023 Dust 02/20/2017 Molds & Smuts 12/29/2023 Other Allergy (See Comments) 018 Animal dander Pollen 02/20/2017 documented as of this encounter (statuses as of 03/24/2024) Medications RODOLFO 180 MG PO TABS Take [...] as of this encounter (statuses as of 03/24/2024) Active Problems Problem Noted Date Diagnosed Date Menorrhagia with regular cycle 11/27/2023 Bunion of great toe of left foot 02/24/2017 Other chronic allergic conjunctivitis 06/24/2011 Allergic rhinitis 06/24/2011 Atopic dermatitis 06/24/2011 Migraine 05/27/2011 documented as of this encounter (statuses as of 03/24/2024) Immunizations Name Administration Dates Next Due COVID-19 [...] EDT Travel History Travel Start Travel End [facility] 03/01/2024 03/07/2024 documented as of this encounter Plan of Treatment Upcoming Encounters Date Type Department Care Team (Late st Contact Info) Description 04/06/2024 9:30 AM EST Office Visit Gynecology/Obstetrics [facility] [address] [place] [address] Connor Adams MD [address] [place] [address] 05/27/2024 3:40 PM EDT Office Visit Neurology [facility] [address] [facility] [place] [address] Tarah Kerr MD 200 [facility] [place] [address] 12/02/2024 3:00 PM EDT Office Visit Family Practice [facility] [address] [facility] [place] [address] Deann Escalante DO [address] [facility] [place] [address] Health Maintenance Due Date Last Done Comments [...] Not on filedocumented as of this encounter Visit Diagnoses Diagnosis Intractable chronic migraine without aura and without status migrainosus- Primary Chronic migraine without aura, with intractable migraine, so stated, without mention of status migrainosus documented in this encounter Care Teams Vp Product Relationship Specialty Start Date End Date Deann Escalante DO [address] [place] [address] PCP - General Family Medicine 05/05/11 documented as of this encounter
--- OUTSIDE RECORDS SUMMARY | 2024-03-26 09:02 | External Medical Summary ---
Author Name Unknown Address Unknown Organization [facility] [address] [place] [address] Laboratory Report Ordering Provider Test Date Status PARAG SALMERON 03/14/2024 16:13:38 Final Observation Date Value Abnormality Reference (Units ) Status WBC, Total 03/14/2024 16:13:38 7.41 4.00-10.8 0 (K/uL) Final RBC 03/14/2024 16:13:38 5.05 3.85-5.15 (M/uL) Final Hemoglobin 03/14/2024 16:13:38 13.9 12.0-15.3 (g/dL) Final HCT 03/14/2024 16:13:38 42.2 36.0-45.2 (%) Final MCV 03/14/2024 16:13:38 83.6 81.5-97.5 (fL) Final MCH 03/14/2024 16:13:38 27.5 27.0-34.0 (pg) Final MCHC 03/14/2024 16:13:38 32.9 32.0-36.0 (g/dL) Final RDW 03/14/2024 16:13:38 15.4 11.5-15.5 (%) Final Platelets 03/14/2024 16:13:38 322 140-400 (K /uL) Final MPV 03/14/2024 16:13:38 9.5 6.6-11.1 ( fL) Final Performing Location [facility] [address] [place] [address]
--- OUTSIDE RECORDS SUMMARY | 2024-03-26 09:02 | External Medical Summary | Summary of Care ---
Author Name Unknown Organization [facility] Address [address] [place] [address] Phone [phone] Care Team Providers Care Stock Turner Name Role Phone John PaulnickolasDeann DO Primary Care Provider Reason for Visit * Reason Onset Date Comments Medication Question 03/23/2024 Encounter Details Date Type Department Care Team (Late st Contact Info) Description 03/23/2024 Telephone Neurology [facility] [place] [address] [place] [address] John Mcelroy DO [address] [place] [address] Medication Question Allergies Active Allergy Reactions Criticality Noted Date [...] by mouth every other day. 4 Capsule 11/14/20 24 Active Qulipta 60 MG Oral Tablet [...] encounter Miscellaneous Notes * Telephone Encounter - Sirena Avery [facility] - 03/23/2024 4:50 PM EST Patient was seen on 12/15/23 for botox and the plan was to continue treatment, but follow-up was not scheduled. Please advise if patient should continue treatment. 11/17/23 OV notes patient was unsureif Botox was helping. Thank you, Sirena Avery, PharmD Clinical Coordinator [facility] 03/23/2024, 4:51 PM documented in this encounter Plan of Treatment Upcoming Encounters Date Type Department Care Team (Late st Contact Info) Description 04/06/2024 9:30 AM EST Office Visit Gynecology/Obstetrics [facility] [address] [facility] [place] [address] Connor Adams MD 132 [facility] [place] [address] 05/27/2024 3:40 PM EDT Office Visit Neurology [facility] [place] [address] [place] [address] Tarah Kerr MD [address] [address] 12/02/2024 3:00 PM EDT Office Visit Family Practice [facility] [place] [address] [place] [place] [address] Deann Escalante DO [address] [place] [place] [address] Health Maintenance Due Date Last Done Comments [...] filedocumented as of this encounter Care Teams Stock Turner Relationship Specialty Start Date End Date Deann Escalante DO [address] [place] [address] PCP - General Family Medicine 05/05/11 documented as of this encounter
--- OUTSIDE RECORDS SUMMARY | 2024-03-26 09:03 | External Medical Summary | Summary of Care ---
Author Name Unknown Organization [facility] Address [address] [place] [address] Phone [phone] Care Team Providers Care Director Pharmacology Name Role Phone Boris Zacariasquique Mascorro Primary Care Provider Reason for Visit * Reason Comments Consultation Encounter Details Date Type Department Care Team (Late st Contact Info) Description 11/27/2023 8:00 AM EDT Office Visit Gynecology/Obstetric s Vieiralinette Barrientos [address] [facility] [place] [address] Connor Adams MD [address] [facility] [place] [address] Menorrhagia with regular cycle*; Uterine leiomyoma, unspecified location; Migraine with aura and without status migrainosus, not intractable Allergies Active Allergy Reactions Criticality Noted Date Comments Dust 02/20/2017 Other Allergy (See Comments) 018 Animal dander Pollen 02/20/2017 documented as of this encounter (statuses as of 11/27/2023) Medications Medication Sig Dispensed Refills Start Date End Date Status RODOLFO 180 MG PO TABS one tablet daily 30 Tab 6 10/29/2011 Active ketotifen fumarate (ZADITOR) 0.025 % ophthalmic solution Instill 1 Drop into both eyes 2 times a day as needed for Allergies. 5 mL 0 05/15/2015 Active Riboflavin 400 MG Oral Tablet Take 1 Tablet by mouth in the morning. 30 Tablet 2 10/16/2022 Active Triamcinolone Acetonide 0.5 % External Cream (Aristocort) Apply topically to affected area 2 times a day. To affected area. 60 g 5 11/27/2022 Active Betamethasone Dipropionate 0.05 % External Cream (Diprosone)Indication s:Eczema of both hands APPLY TOPICALLY TO AFFECTED AREA(S) OF ARMS AND FEET TWO TIMES DAILY 45 g 3 04/30/2023 Active Montelukast Sodium 10 MG Oral Tablet (Singulair)Indication s:Seasonal allergic rhinitis due to pollen TAKE 1 TABLET BY MOUTH AT BEDTIME 90 Tablet 3 05/10/2023 Active Fluticasone Propionate 50 MCG/ACT Nasal Suspension (Flonase)Indications: Seasonal allergic rhinitis due to pollen USE 2 SPRAYS IN EACH NOSTRIL TWO TIMES DAILY 15.8 mL 5 07/07/2023 Active Magnesium Oxide -Mg Supplement 400 (240 Mg) MG Oral Tablet (Mag-Ox) TAKE 1 TABLET BY MOUTH EVERY MORNING 30 Tablet 8 09/23/2023 Active Rizatriptan Benzoate 10 MG Oral Tablet (Maxalt)Indications:C hronic migraine without aura with status migrainosus, not intractable TAKE 1 TABLET BY MOUTH NEEDED FOR MIGRAINE. MAY REPEAT AFTER 2 HOURS UP TO TWO TIMES DAILY, MAXIMUM DAILY DOSE OF 3 TABETS PER DAY 20 Tablet 3 10/14/2023 Active Qulipta 60 MG Oral Tablet (Atogepant) Take 60 mg by mouth in the morning. 30 Tablet 2 11/17/2023 Active documented as of this encounter (statuses as of 11/27/2023) Active Problems Problem Noted Date Diagnosed Date Menorrhagia with regular cycle 11/27/2023 Bunion of great toe of left foot 02/24/2017 Other chronic allergic conjunctivitis 06/24/2011 Allergic rhinitis 06/24/2011 Atopic dermatitis 06/24/2011 Migraine 05/27/2011 documented as of this encounter (statuses as of 11/27/2023) Immunizations Name Administration Dates Next Due COVID-19 mRNA, LNP-s, No Pre serve, 2-Dose Series (Moderna) 01/27/2021,06/22/2020,05/25/2020 Covid-19, Mrna, Lnp-s, Pf, B ivalent, 30 Mcg, IM, 12 yrs and above (Pfizer) 01/15/2022 H1N1 2009 Influenza, IM 01/25/2009 PPD 07/17/2021,08/21/2016 Seasonal Influenza Vac., MDV , [...] the money to buy more. Never true 11/18/19 23 Within the past 12 months, t he food you bought just didn't last and you didn't have money to get more. Never true 11/17/2022 Childcare Answer Date Recorded Do you feel overwhelmed with taking care of a child, family member or friend? No 11/17/2022 Does your family need help f inding childcare? (Household - for ages 0-17 years) Not on file 11/17/2022 Clothing Answer Date Recorded Have you been unable to get clothing when it was really needed? No 11/17/2022 Is your family able to get c lothes or diapers when needed? (Household - for ages 0-17 years) Not on file 11/17/2022 Personal Safety Answer Date Recorded Do you feel unsafe or have concerns for your saf ety? No 11/17/2022 Do you have concerns for you r family's safety? (Household - for ages 0-17 years) Not on file 11/17/2022 Utilities Answer Date Recorded Do you have trouble paying y our heating, water, or electric bill? (Adult - for ages 18 years and over) Not on file 11/18/2023 Is your family able to pay t he heat, water, or electric bill? (Household - for ages 0-17 years) Not on file 11/18/2023 Does your family have access to good internet? (Household - for ages 0-17 years) Not on file 11/18/2023 Employment Status Answer Date Recorded Are you unemployed or without regular income? No 11/17/2022 Does the household have a re gular source of income? (Household - for ages 0-17 years) Not on file 11/17/2022 Social Connections Answer Date Recorded How often do you feel lonely or isolated from those around you? (Adult - for ages 18 years and over) Not on file 11/18/2023 Financial Resource Strain Answer Date R ecorded Do you have any trouble payi ng for your medications, or do you think you might in the future? No 11/17/2022 Does your family have troubl e paying for medicine? (Household - for ages 0-17 years) Not on file 11/17/2022 Transportation Needs Answer Date Record ed READ ONLY Do you have troubl e getting a ride to medical visits or work? Never True 11/17/2022 Does your family have a hard time getting a ride to doctors visits? (Household - for ages 0-17 years) Not on file 11/17/2022 Has lack of transportation k ept you from medical appointments, meetings, work, or from getting things needed for daily living? Check all that apply. (Adult - for ages 18 years and over) Not on file 11/17/2022 Do you (or your family) have trouble finding or paying for a ride (transportation)? (Household - for ages 0-17 years) Not on file 11/17/2022 Housing Stability Answer Date Recorded Do you currently live in a s helter or have no steady place to sleep at night? No 11/17/2022 READ ONLY Do you think you a re at risk of becoming homeless? No 11/17/2022 Does your family worry about paying for your home or becoming homeless? (Household - for ages 0-17 years) Not on file 1 Are you homeless or worried that you might be in the future? (Adult - for ages 18 years and over) Not on file Are you (or your family) shimon eless or worried that you might be in the future? (Household - for ages 0-17 years) Not on file Food Insecurity Answer Date Recorded Do you need food for this week? No 11/17/2022 Are you able to get enough f ood for your family? (Household - for ages 0-17 years) Not on file 11/17/2022 Does your family need food t his week? (Household - for ages 0-17 years) Not on file 11/17/2022 Do you always have enough fo od for your family? (Household - for ages 0-17 years) Not on file 11/17/2022 Sex and Gender Information Value Date Recorded Sex Assigned at Female 11/17/2022 1:43 PM EDT Gender Identity Female 11/17/2022 1:43 PM EDT Sexual Orientation Straight 11/17/2022 1: 43 PM EDT Job Start Date Occupation Industry Not on file Not on file Not on file documented as of this encounter Last Filed Vital Signs Vital Sign Reading Time Taken Comments Blood Pressure 104/70 11/27/2023 7:53 AM EDT Pulse - - Temperature - - Respiratory Rate - - Oxygen Saturation - - Inhaled Oxygen Concentration - - Weight - - Height 167.6 cm (5' 6") 11/27/2023 7:53 AM EDT Body Mass Index - - documented in this encounter Progress Notes * Connor Adams MD - 11/27/2023 8:53 AM EDT Patient Name: Cici Hebert Patient CC: Follow up from [facility] visit. Context: (HPI) 48 year ol G0 with a history of menorrhagia x1 year. Prior to this patient had regular light scheduled menses. She was seen by [facility] an ultrasound done on 11/06/2023 showed uterus measuring 7.7 x 8.8 x 10.5 there was multiple fibroid seen the largest measuring 4.8 x 5.1 x 5.5 centimeters lower uterine segment. Endometrial stripe was thickened to approximately 31 millimeters. Right ovary was normal left ovary was normal in size with a 3 centimeters cystic structure with thin septations. PCP what patient up follow iron hemoglobin was 10.2. Patient saw [facility] provider an office endometrial biopsy C and cervical biopsy was performed. Endometrial biopsy showed proliferative endometrium cervical biopsy showed the polyp micro glandular hyperplasia and squamous metaplasia. Location: Quality: Severity: Duration: Worsening/improving sympt: Pain level/ Scale: Timing: Associated symptoms: Past Medical Hx: Past Medical History: Diagnosis Date Asthma chilldhood and teenage years only Environmental allergies Migraine Past Surgical Hx: Past Surgical History: Procedure Laterality Date DENTAL SURGERY PROCEDURE NEC 1992 Social Hx: Social History Socioeconomic History Marital status: Single Tobacco Use Smoking status: Never Smokeless tobacco: Never Tobacco comments: no passive smoke Vaping Use Vaping status: Never Used Substance and Sexual Activity Alcohol use: No Drug use: No Sexual activity: Never Social History Narrative [facility] [place] [place] INFORMATION ENVIRONMENTAL HISTORY: Type of Home: Two Story condo Type of Heating System: Electric Air Conditioning: Yes Central Basement: Finished, Dampness, Dehumidifier and Water Problems Home have cockroaches: No Irritants in the home: Scented Candles Patient's bedroom location: Floor: second Type of dick: Carpeting Beds: Number: 1 Type of beds: Mattress and Box spring Pillows: Number: 1 Type of pillows: Synthetic (hypoallergenic, polyester) Bedroom contains: Minimal items Pets: 2 cat(s) [place] on a farm: No [employer]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 Entered by: Stan Gutierres MD 05/27/2011 Social Determinants of Health Financial Resource Strain: Low Risk (11/17/2022) Financial Resource Strain Do you have any trouble paying for your medications, or do you think you might in the future? (Adult - for ages 18 years and over): No Food Insecurity: No Food Insecurity (11/17/2022) Food Insecurity Do you need food for this week? (Adult - for ages 18 years and over): No Transportation Needs: No Transportation Needs (11/17/2022) Transportation Needs Do you have trouble getting a ride to medical visits or work? (Adult - for ages 18 years and over):Never True Social Connections Housing Stability: Low Risk (11/17/2022) Housing Stability Do you currently live in a assisted or have no steady place to sleep at night? (Adult - for ages 18 years and over): No Do you think you are at risk of becoming homeless? (Adult - for ages 18 years and over): No Allergy: Review of patient's allergies indicates: Allergen Reactions Dust Other Allergy (See Comments) Animal dander Pollen Family HX: Family History Problem Relation Name Age of Onset Neurological Disorder Grandfather (Maternal) Neena Gerig's disease Thyroid Disorder None Hypertension None Heart Disorder None Diabetes None Cancer None Breast Cancer None Stroke Grandmother (Maternal) Allergies Father allergic rhinitis Asthma Father ROS: REVIEW OF SYSTEMS CONSTITUTIONAL ROS: No change in weight, No weakness, No fatigue and No fevers, sweats, or chills PULMONARY ROS: No cough, sputum, or hemoptysis, No wheezing, No shortness or breath and No recent change in breathing CARDIOVASCULAR ROS: No chest pain, No shortness of breath, No dyspnea on exertion, No orthopnea, Noparoxysmal nocturnal dyspnea, No edema, No palpitations and No syncope BREAST ROS: No new breast lumps or masses, No severe breast pain, No nipple discharge, No recent change in shape/color and Performs self breast exam ENDOCRINE ROS; No change in wt gain, hair loss or bowel habits, malaise or fatigue. No polyuria, polyphagia polydipsia GASTROINTESTINAL ROS: No abdominal pain, No change in bowel habits, No significant heartburn, No significant change in appetite, No nausea, vomiting, diarrhea, or constipation, No hematemesis, No blood in stools or black tarry stools, No abdominal bloating or early satiety and No dysphagia GENITO-URINARY FEMALE ROS: No STDs, No dysuria, No frequency, No incontinence, No urgency and No vaginal discharge and + for irreg menses. ALL OTHERS REVIEWED AND ALL OTHERS NEGATIVE LABS: Pelvic Sonogram; Done 11/06/23 PHYSICAL EXAMINATION Well developed. Well nourishes white female in no acute distress Vital signs BP 104/70 | Ht 1.676 m (5' 6") | LMP (LMP Unknown) | BMI 33.72 kg/m | BSA 2.1 m A/P 1.menorrhagia 2. Low iron. Hemoglobin is 10.2. 3.Fibroid uterus Office endometrial biopsy done by [facility] showed proliferative endometrium. There was a cervical polyp which was biopsied as well that showed microglandular hyperplasia and squamous metaplasia. Pelvic ultrasound reviewed with the patient discussed treatment options including OCP IUD ablation and menorrhagia. Patient has history of migraines and is on medications OCP therefore is presently not a optimal choice. Patient however is interested in IUD trial. Paperwork sent for scheduling Patient is scheduled for exam under anesthesia dilation and curettage hysteroscopy and IUD Mirena placement. I spent a total of 30-39 minutes (exact time 35 mins) on the date of service in preparation, delivery, and documentation of the care provided to Cici Hebert excluding any time spent in the performance of separately billed services or time spent by another provider/QHP. documented in this encounter Nursing Notes * Jordyn Prasad LPN - 11/27/2023 7:58 AM EDT Discuss EMB, us results. HMB x 1 year. documented in this encounter Plan of Treatment Upcoming Encounters Date Type Department Care Team (Late st Contact Info) Description 12/01/2023 3:40 PM EDT Office Visit Family Practice [facility] [address] [place] [id number] Deann Escalante, [address] [place] [address] 12/15/2023 10:40 AM EDT Office Visit Neurology [facility] [place] [address] [place] [address] [id number] John Mcelroy, [address] [place] [id number] 12/18/2023 2:45 PM EDT Imaging Radiology [facility] [address] [facility] [place] [address] [facility] [place] [address] 05/27/2024 3:40 PM EDT Office Visit Neurology [facility] Bermudez [address] [place] [address] Tarah Kerr MD [address] [place] [id number] Scheduled Procedures Name Priority Associated Diagnoses Date/Ti me HYSTEROSCOPY WITH BIOPSY AND /OR POLYPECTOMY WITH OR WITHOUT D&C Menorrhagia with regular cycle INSERTION OF INTRAUTERINE DEVICE Menorrhagia with regular cycle Health Maintenance Due Date Last Done Comments Hepatitis B Vaccine (1 of 3 - 19+ 3-dose series) 1993 Colonoscopy 10/31/2019 Fecal Occult Blood Test 10/31/2019 Sigmoidoscopy 10/31/2019 Depression Screening 01/29/2021 01/30/2020 COVID-19 Vaccine ( season) 2023 01/15/2022, 01/27/2021, 06/22/2020, Additional history exists Mammogram 12/17/2023 12/16/2022, 03/20, 04/05/2021, Additional history exists Cologuard 05/07/2024 05/07/2021, 04/16, 05/02/2021 Colorectal Cancer Screening 05/07/2024 Diabetes Screening 11/16/2026 11/17/2023, 0 10/27/2023, 02/14/2020, [...] as of this encounter Visit Diagnoses Diagnosis Menorrhagia with regular cycle- Primary Excessive or frequent menstruation Uterine leiomyoma, unspecified location Migraine with aura and without status migrainosus, not intractable Migraine with aura, without mention of intractable migraine without mention of status migrainosus documented in this encounter Care Teams Director Pharmacology Relationship Specialty Start Date End Date Deann Escalante DO [address] [place] [address] PCP - General Family Medicine 05/05/11 documented as of this encounter
--- OUTSIDE RECORDS SUMMARY | 2024-03-26 09:03 | External Medical Summary | Summary of Care ---
Author Name Unknown Organization [facility] Address [address] [place] [address] Phone [phone] Care Team Providers Care Machine Adjuster Leader Case Trim Name Role Phone John PaulnickolasDeann DO Primary Care Provider Reason for Visit * Auth/Cert Specialty Diagnoses / Procedures Referred By Tre ryan Referred To Contact Diagnoses Menorrhagia with regular cycle Menorrhagia with regular cycle [N92.0] Procedures HYSTEROSCOPY W/BIOPSY AND/OR POLYPECTOMY W/WO D&C INSERT INTRAUTERINE DEVICE (IUD) PELVIC EXAM UNDER ANESTHESIA, NOT LOCAL HYSTEROSCOPY WITH BIOPSY AND/OR POLYPECTOMY WITH OR WITHOUT D&C INSERTION OF INTRAUTERINE DEVICE PELVIC EXAMINATION UNDER ANESTHESIA Connor Jordan MD [address] [address] [address] [place] [address] Referral ID Status Reason Start Date Expiration Date Visits Re quested Visits Authorized [id number] Encounter Details Date Type Department Care Team (Latest Contact Info) Description 12/17/2023 9:53 AM EDT - 12/17/2023 12:59 PM EDT Hospital Encounter [facility], Operating Room [facility] [address] [address] Connor Jordan MD [address] [address] Discharge Disposition: Home - Self Care Allergies Active Allergy Reactions Criticality Noted Date Comments Cat Dander 12/09/2023 Dog Dander 12/09/2023 Dust 02/20/2017 Other Allergy (See Comments) 018 Animal dander Pollen 02/20/2017 documented as of this encounter (statuses as of 12/18/2023) Medications Medication Sig Dispensed Refills Start Date End Date Status RODOLFO 180 MG PO TABS Take 1 Tablet by mouth at bedtime. 30 Tab 6 10/29/2011 Active ketotifen fumarate (ZADITOR) 0.025 % ophthalmic solution Instill 1 Drop into both eyes 2 times a day as needed for Allergies. 5 mL 0 05/15/2015 Active Riboflavin 400 MG Oral Tablet Take 1 Tablet by mouth in the morning. 30 Tablet 2 10/16/2022 Active Betamethasone Dipropionate 0.05 % External Cream (Diprosone)Indicati ons:Eczema of both hands APPLY TOPICALLY TO AFFECTED AREA(S) OF ARMS AND FEET TWO TIMES DAILY 45 g 3 04/30/2023 Active Montelukast Sodium 10 MG Oral Tablet (Singulair)Indicati ons:Seasonal allergic rhinitis due to pollen TAKE 1 TABLET BY MOUTH AT BEDTIME 90 Tablet 3 05/10/2023 Active Fluticasone Propionate 50 MCG/ACT Nasal Suspension (Flonase)Indication s:Seasonal allergic rhinitis due to pollen USE 2 SPRAYS IN EACH NOSTRIL TWO TIMES DAILY 15.8 mL 5 07/07/2023 Active Magnesium Oxide -Mg Supplement 400 (240 Mg) MG Oral Tablet (Mag-Ox) TAKE 1 TABLET BY MOUTH EVERY MORNING 30 Tablet 8 09/23/2023 Active Rizatriptan Benzoate 10 MG Oral Tablet (Maxalt)Indications :Chronic migraine without aura with status migrainosus, not intractable TAKE 1 TABLET BY MOUTH NEEDED FOR MIGRAINE. MAY REPEAT AFTER 2 HOURS UP TO TWO TIMES DAILY, MAXIMUM DAILY DOSE OF 3 TABETS PER DAY 20 Tablet 3 10/14/2023 Active Qulipta 60 MG Oral Tablet (Atogepant) Take 60 mg by mouth in the morning. 30 Tablet 2 11/17/2023 Active Additional Information Patient taking differently:60 mg OralHS, Reported on 12/09/2023 Typhoid Vaccine Oral Capsule Delayed Release Take 1 Capsule by mouth every other day. 4 Capsule 12/07/2023 Active Iron 90 (18 Fe) MG Oral Tablet Take by mouth at bedtime. Active Docusate Sodium 100 MG Oral Capsule (Colace) Take 1 Capsule by mouth at bedtime. Active Botox 100 UNIT Injection Solution Reconstituted (botulinum toxin type a)Indications:Intra ctable chronic migraine without aura and without status migrainosus Inject 200 units subcutaneously and IM according to the PREEMPT protocol for chronic migraine Active Ibuprofen 600 MG Oral Tablet (Motrin) Take 1 Tablet by mouth in the morning and 1 Tablet at noon and 1 Tablet before bedtime. With meals.. 30 Tablet 12/17/2023 Active documented as of this encounter (statuses as of 12/18/2023) Active Problems Problem Noted Date Diagnosed Date Menorrhagia with regular cycle 11/27/2023 Bunion of great toe of left foot 02/24/2017 Other chronic allergic conjunctivitis 06/24/2011 Allergic rhinitis 06/24/2011 Atopic dermatitis 06/24/2011 Migraine 05/27/2011 documented as of this encounter (statuses as of 12/18/2023) Immunizations Name Administration Dates Next Due COVID-19 [...] ages 0-17 years) Not on file 12/02/2023 Sex and Gender Information Value Date Recorded Sex Assigned at Female 11/17/2022 1:43 PM EDT Gender Identity Female 11/17/2022 1:43 PM EDT Sexual Orientation Straight 11/17/2022 1: 43 PM EDT Job Start Date Occupation Industry Not on file Not on file Not on file documented as of this encounter Last Filed Vital Signs Vital Sign Reading Time Taken Comments Blood Pressure 126/72 12/17/2023 12:15 PM EDT Pulse 72 12/17/2023 12:15 PM EDT Temperature 36.7 C (98 F) 12/17/2023 12:15 PM EDT Respiratory Rate 18 12/17/2023 12:15 PM EDT Oxygen Saturation 100% 12/17/2023 12:15 PM EDT Inhaled Oxygen Concentration - - Weight 94.3 kg (208 lb) 12/17/2023 10:18 AM EDT Height 167.6 cm (5' 6") 12/17/2023 10:18 AM EDT Body Mass Index 33.57 12/17/2023 10:18 AM EDT documented in this encounter Discharge Summaries * Connor Jordan MD - 12/17/2023 12:10 PM EDT [facility] [address] [address] OUTPATIENT SURGERY DISCHARGE SUMMARY NOTE Name: Cici Hebert Location: [facility]/OR Date: 12/17/2023 Time: 12:10 PM Surgery Date: 12/17/2023 Procedure: HYSTEROSCOPY WITH BIOPSY AND/OR POLYPECTOMY WITH OR WITHOUT D&C, INSERTION OF INTRAUTERINE DEVICE, PELVIC EXAMINATION UNDER ANESTHESIA N/A N/A N/A Surgeon: Connor Jordan MD Discharge Diagnosis: postop After examination of this patient, I have determined she is ready for discharge to home when the patient meets criteria. Discharge instructions were given to the patient. documented in this encounter Discharge Instructions * Discharge Instr - AVS* Connor Jordan MD - 12/17/2023 12:08 PM EDT Discharge Date: 12/17/2023 You may call the department of Obstetrics and Gynecology during business hours for any questions ortest results. Maddie Barrientos - [phone] After hours, you may call the number above and follow the prompts for more information on the next steps in your care. For acute concerns, you may also call the hospital directly and have the winding lathe operator page the BLOCK OUT MACHINE OPERATOR physician production control supervisor. [employer] [facility] Care sites are available 24 hours a day. You can call or schedule an appointment online at a location near your home. Check your Patient Education Brochure for further information. The information below provides you with the instructions following discharge from the hospital. If you have any questions, please ask before leaving. Please carry this letter with you when you see your doctor in the clinic. If you have questions, you can reach us at the numbers above. Diet Start with clear liquids (jell-o, tea, apple juice). Avoid dairy products (milk, cheese, pudding, ice cream) and fried or greasy foods. Progress to prescribed diet as tolerated. If nausea should occur, have clear liquids only until soft foods can be tolerated. Activity A responsible adult must be with the patient for 24 hours after surgery. We encourage light walkingintermittently in the first days following surgery for the quickest recovery and increase activity as tolerated. DO NOT drive, operate any appliances and/or machinery or sign legal documents for 24 hours. Over the Counter (OTC) Pain Medications Ggej-cxf-jxavzkl Tylenol 325 mg, take 2 tablets by mouth every 6 hours as needed for pain Eaua-vho-wrknrqc Ibuprofen 200 mg, take 3 tablets by mouth every 6 hours as needed for pain For the best pain control using mkfc-pla-cgiccmi Tylenol and Ibuprofen, alternate Ibuprofen and Tylenol so that you are taking 1 medication every 3 hours (ex: If you take Tylenol at 12:00 PM, take Ibuprofen at 3:00 PM, and then you will be permitted to take Tylenol again at 6:00 PM, and Ibuprofen at 9:00 PM, etc). Do not exceed Tylenol 4000mg or Ibuprofen 2400mg in a 24 hour period. See the sections below on your After Visit Summary (AVS) for other medications that have been prescribed. Warnings Call your surgeon promptly in case of: Excessive bleeding Fever greater than 101 degrees fahrenheit (38.3 degrees centigrade) Persistent nausea and vomiting Redness, swelling, or pus-like drainage Pain that is not relieved by the medicine you were told to take Follow Up Please follow up with Dr. jordan on as previously scheduled. See your primary care physician (Deann Escalante DO) as regularly scheduled. If you have any scheduled appointments at [facility], they will be listed below on your After Visit Summary (AVS). Return to Work or School You may return to work or school as previously discussed with Dr. jordan Special Instructions You may have vaginal bleeding that requires a pad. If your bleeding saturates more than 1 heavy padper hour, please notify your physician. Maintain pelvic rest (nothing in the vagina - no douching, tampons, or sexual intercourse) for at least 1 weeks. Frequently Asked Questions During Recovery Hysteroscopy, Dilation and Curettage (D&C) You should understand that when you are first at home that not every day will be a good day. It is not uncommon after surgery to take two steps forward and one backward. Fatigue and low energy level may persist for many weeks after surgery. Some people experience depression or post-surgery blues. Usually this goes away by itself but if it doesn't, you should call my office and let me know. If you feel suicidal or homicidal, please call the crisis hotline at [phone] ([phone]). You may have some spotting and discharge from the vagina for a few weeks. Bleeding usually lessens over time, but if the bleeding increases, you need to call right away. Vaginal discharge is usually yellowish-white and watery. In the meantime, you can use sanitary pads or napkins; please do not usetampons. If you are concerned about the discharge you are having, please call. If you have any excessive pain or a fever, please call the number provided at the top of the instructions. Please be sure to ask any questions about issues of concern. It is often helpful to write these down as you think of them. You can be sure that you are not the first person who needs questions answered, and I consider it part of my responsibilities to make sure that all your questions are answered s atisfactorily. Remember, there is NO such thing as a stupid question! I would much rather have you ask too many questions than not enough. It is important that you refrain from intercourse for 2 weeks or until cleared by your doctor. Showering is the preferred method of bathing during the first 2 weeks after surgery. Washing the labia is fine but no water (or anything else, for that matter) should go in the vagina during the healing process. It is important to avoid straining and pushing, whether urinating or having a bowel movement! Therefore, it is very important to avoid constipation. If a high-fiber diet alone is enough to accomplishthis, great! Most likely, though, you will need to use a stool softener like Colace (docusate sodium) 2-4 times a day to keep your bowel movements soft. By the way, the generic is just as good as thebrand name. If Colace isn't enough, use some Milk of Magnesia. Even an enema is a whole lot better than becoming completely bound up. Medications As noted above, you are encouraged to use a mild stool softener to avoid constipation. Most patients find that they need nothing stronger than Tylenol (acetaminophen) or Motrin (ibuprofen). Please call your doctor if your pain requires further attention. You should resume all of your regular medications unless specifically instructed not to. Please ask if you have any questions about your medications. documented in this encounter H&P Notes * Connor Jordan MD - 12/17/2023 10:34 AM EDT HISTORY & PHYSICAL INTERVAL NOTE [facility] [place] [address] [facility] [address] History and Physical Update: Name: Cici Hebert Location: [place] [facility]/OR Date: 12/17/2023 Time: 10:34 AM DATE OF HISTORY AND PHYSICAL: BP: 116 mmHg/74 mmHg (12/17/23 1018) Pulse: 53 (12/17/23 1018) Resp: 16 (12/17/23 1018) Temp: 36.28 C (12/17/23 1018) Temp Summary: Temp Min: 36.3 C (97.3 F) Max: 36.3 C (97.3 F) SpO2: 99 % (12/17/23 1018) O2 flow rate: Supplemental O2 Delivery: Room Air, None (12/17/23 1018) Does patient take a beta regan? No Did patient stop anticoagulants? No Heart Exam: regular rate and rhythm Lung Exam: clear to auscultation bilaterally Other Pertinent Physical Exam: I have reviewed the H&P previously performed and examined the patient today. There are no new findings noted. Source Note - Connor Jordan MD - 12/08/2023 2:54 PM EDT [place] [id number] Appt line [phone] Context: (HPI) 48 year ol G0 with [...] 3 centimeters cystic structure with thin septations. 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 Denies h/o STDs and abnormal Paps. Her past medical/surgical histories and current medications are recorded in the electronic record. Past Surgical History: Procedure Laterality Date DENTAL SURGERY PROCEDURE NEC 1992 Family History Problem Relation Name Age of Onset Neurological Disorder Grandfather (Maternal) Neena Gerig's disease Thyroid Disorder None Hypertension None Heart Disorder None Diabetes None Cancer None Breast Cancer None Stroke Grandmother (Maternal) Allergies Father allergic rhinitis Asthma Father History Social History Socioeconomic History Marital status: Single Spouse name: Not on file Number of children: Not on file Years of education: Not on file Highest education level: Not on file Occupational History Not on file Tobacco Use Smoking status: Never Smokeless tobacco: Never Tobacco comments: no passive smoke Vaping Use Vaping status: Never Used Substance and Sexual Activity Alcohol use: No Drug use: No Sexual activity: Never Other Topics Concern Not on file Social History Narrative [facility] [place] INFORMATION [...] of Health Financial Resource Strain: Low Risk (12/02/2023) Financial Resource Strain Do you have any trouble paying for your medications, or do you think you might in the future? (Adult - for ages 18 years and over): No Does your family have trouble paying for medicine? (Household - for ages 0-17 years): Not on file Food Insecurity: No Food Insecurity (12/02/2023) Food Insecurity Do you need food for this week? (Adult - for ages 18 years and over): No Are you able to get enough food for your family? (Household - for ages 0-17 years): Not on file Does your family need food this week? (Household - for ages 0-17 years): Not on file Do you always have enough food for your family? (Household - for ages 0-17 years): Not on file Transportation Needs: No Transportation Needs (12/02/2023) Transportation Needs Do you have trouble getting a ride to medical visits or work? (Adult - for ages 18 years and over):Not on file Does your family have a hard time getting a ride to doctors visits? (Household - for ages 0-17 years): Not on file Has lack of transportation kept you from medical appointments, meetings, work, or from getting things needed for daily living? Check all that apply. (Adult - for ages 18 years and over): No Do you (or your family) have trouble finding or paying for a ride (transportation)? (Household - for ages 0-17 years): Not on file Social Connections: Socially Integrated (12/02/2023) Social Connections How often do you feel lonely or isolated from those around you? (Adult - for ages 18 years and over): Sometimes Housing Stability: Low Risk (12/02/2023) Housing Stability Do you currently live in a nursing home or have no steady place to sleep at night? (Adult - for ages 18 years and over): No Do you think you are at risk of becoming homeless? (Adult - for ages 18 years and over): Not on file Does your family worry about paying for your home or becoming homeless? (Household - for ages 0-17 years): Not on file Are you homeless or worried that you might be in the future? (Adult - for ages 18 years and over): No Are you (or your family) homeless or worried that you might be in the future? (Household - for ages0-17 years): Not on file @ACTMEDS@ Physical Exam: BP 112/64 | Ht 1.676 m (5' 6") | Wt 94.3 kg (208 lb) | LMP (LMP Unknown) | BMI 33.57 kg/m | BSA 2.1 m CV: S1, S2. Regular rate and Rhythm Lungs: Clear to auscultation bilaterally. Abdomen: Soft Extremities: Soft non tender calves bilaterally. A/P: 48 year old year old Menorrhagia Endometrial bx by AP suspicious for cervical polyp with hyperplasia We have discussed the risk alternatives and complications of surgery including more surgery to correct complication,risk of anesthesia,infection,damage to internal organs and . We have also discussed the possibility that pt's present situation may not change. Pt is aware and wishes to proceed to surgery. Consent is signed Pt scheduled for the ff procedures 1.Examination under anesthesia 2 Fractional .Dilation and curettage 3.Hysterosocpy 4, IUD Mirena Placement Connor Jordan MD 12/08/2023 2:54 PM documented in this encounter Nursing Notes * Tessa Dickerson RN - 12/17/2023 12:43 PM EDT Pt ambulated to restroom to void. * Tessa Dickerson RN - 12/17/2023 12:40 PM EDT Pt sitting up taking po fluids and lai well. VSS. Pt given d'c instructions and verbalized understanding. * Tessa Dickerson RN - 12/17/2023 12:03 PM EDT Patient received to pacu 2 status post hysterscopy. Patient able to rouse. no pain. no nausea. Respirations are even and unlabored on RA. NSR on monitor. Abdomen soft and non distended. Mariama pad intact Vital signs stable. * Yamile De Anda RN - 12/17/2023 10:20 AM EDT Patient or the Patients Legally Authorized Staking Engineer has been advised that (1) the Patient meets criteria for testing and (2) the administration of anesthesia, radiation or other imaging agents may have a harmful impact to an unborn child. The Patient or Patients Representativewere offered the opportunity to ask questions as to necessity of such testing and potential outcomes. Consent for testing has been given. Negative * Yamile De Anda RN - 12/17/2023 10:20 AM EDT Surgical consent verified with patient. Patient agrees with listed procedure and verified signature. documented in this encounter OR Notes * OR Surgeon - Connor Jordan MD - 12/17/2023 12:10 PM EDT OPERATIVE RECORD [facility], Operating Room [facility] [address] [facility] [address] [address] Cici Hebert : 1975 DATE: 12/17/2023 PREOPERATIVE DIAGNOSIS: 1. Menorrhagia 2. Fibroid uterus POSTOPERATIVE DIAGNOSIS: same SURGEON: Connor Jordan MD Attestation for assistance;Was there a qualified resident that took part in the case? No - The skilled assistance of the advanced practitioner/physician was necessary for the successful completion of this case. Granite Chip Terrazzo Finisher name: Monisha YIN Granite Chip Terrazzo Finisher role: The advanced practitioner/physician was essential for retraction, suction, irrigation, proper positioning, maintaining reduction, placement of hardware, sterile draping, and tissue retraction I understand that section 1842 (b)(7)(D) of the Social Security Act generally prohibits Medicare physician fee schedule payment for the services of [id number] in teaching hospitals when qualified residents are available to furnish such services. I certify that the services for which [facility] is [facility] were medically necessary, and that no qualified resident was available to perform theservices. I further understand that these services are subject to post-payment review by the Medicare carrier. ANESTHESIA: Sedation OPERATION: 1. Exam under anesthesia 2. Dilation and curettage 3. Hysteroscopy 4. Endometrial polyp resection with MyoSure 5. IUD Mirena placement FINDINGS: normal female escutcheon no lesions in the vagina cervix appeared grossly normal. Uterus sounded to 11 centimeters. There were several polyps and proliferative endometrium seen during hysteroscopy. ESTIMATED BLOOD LOSS: 10ml DRAINS: none FLUIDS: 1000 mL Crystalloid URINE OUTPUT: 200ml SPECIMEN: 1. Endometrial polyp resection with MyoSure 2. Sharp endometrial curetting COMPLICATIONS: None. CONDITION: Stable. INDICATIONS AND HISTORY: 1. Menorrhagia DESCRIPTION OF OPERATION: The patient was identified, and the procedure was verified. sc DESCRIPTION OF OPERATION: Patient is taken to the operating room was she was prepped and draped in normal sterile fashion in dorsal lithotomy position. Exam under anesthesia is as dictated above. Bladder is catheterized and 200 cubic centimeters of clear urine is obtained. Single-tooth tenaculum was used to grab the cervix. Weighted speculum was placed in the vagina. Cervix is dilated in series. Operative hysteroscope was placed into the uterine cavity. Findings of the uterus as dictated above.The MyoSure device was passed through the outflow tract of the hysteroscope. Resection of the endometrial polyp and endometrium was performed with the MyoSure device. It was removed and a size 2 sharp curette introduced in the uterine cavity. Curettage was performed in all 4 quadrants until a gritty texture is obtained. Both specimens sent to pathology for pathologic analysis. IUD Mirena is set at 11 centimeters and placed into the uterine cavity without difficulty. String of IUD is cut to 1 inch. All instruments removed from the uterus and the vagina and accounted for x2 including sponges needles and retractors. There was good hemostasis. The patient is sent to recovery in stable condition. IUD Information; LOT # [id number] Exp; 09/2025 Connor Jordan MD 12/17/2023 12:11 PM documented in this encounter Plan of Treatment Upcoming Encounters Date Type Department Care Team (Late st Contact Info) Description 12/29/2023 11:00 AM EST Office Visit Infectious Disease, [place] [address] [place] [address] Albaro Cardenas MD [address] [place] [address] 01/06/2024 3:15 PM EST Office Visit Gynecology/Obstetrics [place] [facility] [address] [facility] [place] [address] Connor Jordan MD [address] [facility] [address] [place] [address] 05/27/2024 3:40 PM EDT Office Visit Neurology [facility] [address] [facility] [place] [address] Tarah Kerr MD [address] [facility] [address] [address] 12/02/2024 3:00 PM EDT Office Visit Family Practice [facility] [address] [facility] [address] [address] Deann Escalante DO [address] [facility] [place] [address] Pending Results Name Type Priority Associated Diagnoses Date /Time SURGICAL PATHOLOGY Pathology Routine Menorrhagia with regular cycle 12/17/2023 11:34 AM EDT Scheduled Orders Name Type Priority Associated Diagnoses Orde r Schedule SURGICAL PATHOLOGY Pathology Routine Menorrhagia with regular cycle Release Upon Ordering for 1 Occurrences starting 12/17/2023, 1 completed Health Maintenance Due Date Last Done Comments [...] Procedure Name Priority Date/Time Associated Diagnosis Comments URINE SCREEN, POINT OF CARE (ENTER/EDIT) STAT 12/17/2023 10:31 AM EDT documented in this encounter Results * URINE SCREEN, POINT OF CARE (ENTER/EDIT) (12/17/2023 10:31 AM EDT) hCG Beta, Urine Negative Negative Procedural Control Valid? Yes Lot Number [id number] Expiration Date 2025-01-12 Urine 12/17/2023 10:3 1 AM EDT Monisha Broderick PA-C LAB POINT OF CARE TE ST ENTER/EDIT ORDERABLES documented in this encounter Visit Diagnoses Diagnosis Menorrhagia with regular cycle- Primary Excessive or frequent menstruation documented in this encounter Administered Medications Inactive Administered Medications - up to 3 most recent administrations Medication Order MAR Action Action Date Dose Rate Site Acetaminophen (Tylenol) tab 975 mg 975 mg, Oral, PREOP, First dose on Shelly 12/17/23 at 1030, Last dose on Shelly 12/17/23 at 1030, For 1 dose, Maximum 4 g acetaminophen/day. Avoid in patients with severe hepatic impairment or severe active liver disease. Administer 60 minutes prior to OR., Pre-Op Given 12/17/2023 10:25 AM EDT 975 mg isolyte-S pH 7.4 infusion Intravenous, at 10 mL/hr, KVO --- For Periop use. Plasma-LYTE 148, isolyte-S, and isolyte-S pH 7.4 are considered equivalent - including for MAR barcode scanning., CONTINUOUS, Starting on Shelly 12/17/23 at 1030, Until Shelly 12/17/23 at 1700, Pre-Op Continue from Pre-Op 12/17/2023 11:10 AM EDT 10 mL/hr New Bag 12/17/2023 10:27 AM EDT 10 mL/hr Povidone-Iodine nasal swab 4 Swab 4 Swab, Nasal, PREOP, First dose on Shelly 12/17/23 at 1030, Last dose on Shelly 12/17/23 at 1030, For 1 dose, Tilt the bottle slightly, dip one swab into solution and stir vigorously for 10 seconds. Withdraw the swab slowly to avoid wiping solution off during removal. Insert swab comfortably into one nostril and rotate for 15 seconds, covering all surfaces. Then focus on the inside tip of nostril and rotate for an additional 15 seconds. Using a new swab, Repeat above steps in the other nostril (Swab 2). Repeat the application in both nostrils using a fresh swab each times (Swab 3 and 4)., Pre-Op Given 12/17/2023 10:30 AM EDT 4 Swabs documented in this encounter Active and Recently Administered Medications Times are shown in EDT. Scheduled Medication Order 12/15/2023 12/16/2023 12/17/2023 Acetaminophen (Tylenol) tab 975 mg (COMPLETED) 975 mg, Oral, PREOP, First dose on Shelly 12/17/23 at 1030, Last dose on Shelly 12/17/23 at 1030, For 1 dose, Maximum 4 g acetaminophen/day. Avoid in patients with severe hepatic impairment or severe active liver disease. Administer 60 minutes prior to OR., Pre-Op 1025 (Given - Provid er: Yamile De Anda RN) chlorhexidine gluconate cloth 2 % pad 1 Pad 1 Pad, External, PREOP, First dose on Shelly 12/17/23 at 1030, Last dose on Shelly 12/17/23 at 1030, For 1 dose, Cleanse surgical site area immediately before transferring intra-op, Pre-Op 1030 (Due) Povidone-Iodine nasal swab 4 Swab (COMPLETED) 4 Swab, Nasal, PREOP, First dose on Shelly 12/17/23 at 1030, Last dose on Shelly 12/17/23 at 1030, For 1 dose, Tilt the bottle slightly, dip one swab into solution and stir vigorously for 10 seconds. Withdraw the swab slowly to avoid wiping solution off during removal. Insert swab comfortably into one nostril and rotate for 15 seconds, covering all surfaces. Then focus on the inside tip of nostril and rotate for an additional 15 seconds. Using a new swab, Repeat above steps in the other nostril (Swab 2). Repeat the application in both nostrils using a fresh swab each times (Swab 3 and 4)., Pre-Op 1030 (Given - Provid er: Yamile De Anda RN - Comment: nasal) Continuous Medication Order 12/15/2023 12/16/2023 12/17/2023 isolyte-S pH 7.4 infusion Intravenous, at 10 mL/hr, KVO --- For Periop use. Plasma-LYTE 148, isolyte-S, and isolyte-S pH 7.4 are considered equivalent - including for MAR barcode scanning., CONTINUOUS, Starting on Shelly 12/17/23 at 1030, Until Shelly 12/17/23 at 1700, Pre-Op 1027 (New Bag - Prov ider: Yamile De Anda RN)1110 (Continue from Pre-Op - Provider: Oscar Yang CRNA)1157 (Anes Intra-Op Fluid - Provider: Tristin Nieves CRNA) PRN Medication Order 12/15/2023 12/16/2023 12/17/2023 levoNORGESTREL(Mirena) 20 mcg/24 hr IUD (CANCELED) ONCE PRN INTRA PROCEDURE, Starting on Shelly 12/17/23 at 1151, Until Shelly 12/17/23 at 1156, Intra-Op 1151 (Given - Provid er: Connor Jordan MD - Comment: 52mg unit used) silver nitrate applicator (CANCELED) ONCE PRN INTRA PROCEDURE, Starting on Shelly 12/17/23 at 1153, Until Shelly 12/17/23 at 1156, Intra-Op 1153 (Given - Provid er: Connor Jordan MD - Comment: cervix) sodium chloride IR 0.9 % irrigation (CANCELED) ONCE PRN INTRA PROCEDURE, Starting on Shelly 12/17/23 at 1132, Until Shelly 12/17/23 at 1156, Intra-Op 1132 (Given - Provid er: Connor Jordan MD - Comment: qs - hysteroscopy - see equip note) documented in this encounter Care Teams Machine Adjuster Leader Case Trim Relationship Specialty Start Date End Date Deann Escalante DO [address] [place] [address] PCP - General Family Medicine 05/05/11 documented as of this encounter
--- OUTSIDE RECORDS SUMMARY | 2024-03-26 09:03 | External Medical Summary | Summary of Care ---
Author Name Unknown Organization [facility] Address [address] [place] [address] Phone [phone] Care Team Providers Care Sporting Goods Salesperson Name Role Phone John PaulnickolasDeann DO Primary Care Provider Reason for Visit * Reason Comments Botox Injection * Precert (Within 10 days (routine)) - Closed Specialty Diagnoses / Procedures Referred By Contmoreno t Referred To Contact Neurology Diagnoses Chronic migraine without aura, intractable, without status migrainosus Procedures AK INJECTION,ONABOTULINUMTOXIN A Tarah Ramos PA-C [address] [place] [address] Tarah Ramos PA-C [address] [place] [id number] Referral ID Status Reason Start Date Expiration Date V isits Requested Visits Authorized [id number] Closed Precert 08/11/2023 02/06/2024 2 2 Encounter Details Date Type Department Care Team (Late st Contact Info) Description 12/15/2023 10:40 AM EDT Office Visit Neurology [facility] [address] [place] [id number] John Mcelroy DO [address] [place] [place] [address] Intractable chronic migraine without aura and without status migrainosus* Allergies Active Allergy Reactions Criticality Noted Date Comments Cat Dander 12/09/2023 Dog Dander 12/09/2023 Dust 02/20/2017 Other Allergy (See Comments) 018 Animal dander Pollen 02/20/2017 documented as of this encounter (statuses as of 12/15/2023) Medications Medication Sig Dispensed Refills Start Date End Date Status RODOLFO 180 MG PO TABS Take 1 Tablet by mouth at bedtime. 30 Tab 6 10/29/2011 Active ketotifen fumarate (ZADITOR) 0.025 % ophthalmic solution Instill 1 Drop into both eyes 2 times a day as needed for Allergies. 5 mL 0 05/15/2015 Active Additional Information Patient not taking.Reported on 12/09/2023 Riboflavin 400 MG Oral Tablet Take 1 [...] every other day. 4 Capsule 12/07/2023 Active Additional Information Patient taking differently:1 Capsule Oral EVERY OTHER DAY,12/09/2023 has not picked up prescription yet, Reported on 12/09/2023 Botox 100 UNIT Injection Solution Reconstituted (botulinum toxin type a)Indications:Intra ctable chronic migraine without aura and without status migrainosus Inject 200 units subcutaneously and IM according to the PREEMPT protocol for chronic migraine Active Hospital, Clinic, or Other Facility Administered Medication Ordered Dose Route Frequency Start Date End Date Status botulinum toxin type a (Botox) inj 155 UnitsIndications:Intractabl e chronic migraine without aura and without status migrainosus 155 Units SC ONCE 12/15/2023 12/15/2023 Ended documented as of this encounter (statuses as of 12/15/2023) Active Problems Problem Noted Date Diagnosed Date Menorrhagia with regular cycle 11/27/2023 Bunion of great toe of left foot 02/24/2017 Other chronic allergic conjunctivitis 06/24/2011 Allergic rhinitis 06/24/2011 Atopic dermatitis 06/24/2011 Migraine 05/27/2011 documented as of this encounter (statuses as of 12/15/2023) Immunizations Name Administration Dates Next Due COVID-19 [...] on file documented as of this encounter Progress Notes * John Mcelroy, DO - 12/15/2023 11:16 AM EDT PROCEDURE NOTE: BOTOX INJECTIONS FOR CHRONIC MIGRAINE Procedure type: 2nd Botox injection for chronic migraine Response to prior Botox: Noted little improvement with the use of Botox. However she has noted significant improvement with the use of Qulipta. Will try 1 last round of Botox to see if she has any further benefit. Otherwise will defer on scheduling follow-up for Botox. Preoperative: The patient was informed of the risks, benefits, and nature of this procedure. Informed consent was signed and placed in the medical chart. Procedure description: 200 unit vials of Botox were diluted with 4 cc of normal saline using a sterile technique. Alcohol swabs were used to cleanse the skin. The Onabotulinumtoxin A was administeredintramuscularly by using 27 gauge 1/2 inch needle into the following muscles: Procerus muscle, 5 units. Right and left director of digital platforms muscles, 5 units each for a total of 2 injection sites(10 units total) Right and left frontalis muscles, 5 units each for a total of 4 injection sites(20 units total) Right and left temporalis muscles, 5 units each for a total of 8 injection sites(40 units total) Right and left occipitalis muscles, 5 units each for a total of 6 injection sites(30 units total). Right and left cervical paraspinal muscles, 5 units each for a total of 4 injection sites(20 units total). Right and left trapezius muscles, 5 units each for a total of 6 injection sites(30 units total). A total of 155 units of Botulinum toxin were utilized for total of 31 injection sites, 45 units of Botox were discarded. With the exception of an injection into procerus muscle, which was injected at one site, all muscles were injected bilaterally, with half of the injections administered to the left side, and the other half to the right side. Postoperative: Pressure was applied to facilitate hemostasis, no bleeding was observed. The patienttolerated the procedure well, there were no complications. Follow up: 3 month Botox injection were scheduled with the patient. John Mcelroy DO documented in this encounter Plan of Treatment Upcoming Encounters Date Type Department Care Team (Latest Contact Info) Description 12/17/2023 11:02 AM EDT Hospital Encounter [facility], Operating Room [facility] [address] [place] [phone] Connor Adams MD [address] [place] [address] 12/17/2023 11:02 AM EDT - 12/17/2023 12:00 PM EDT Surgery OR [facility], Operating Room [facility] [address] [phone] Connor Adams MD [address] [place] [address] HYSTEROSCOPY WITH BIOPSY AND/OR POLYPECTOMY WITH OR WITHOUT D&C 12/29/2023 11:00 AM EST Office Visit Infectious Disease, [place] [address] [place] [address] Albaro Cardenas MD [address] [place] [address] 01/06/2024 3:15 PM EST Office Visit Gynecology/Obst[facility] [address] [address] Connor Adams MD [address] [place] [address] 05/27/2024 3:40 PM EDT Office Visit Neurology [facility] [place] [address] [facility] [address] Tarah Kerr MD [address] [facility] [place] [address] 12/02/2024 3:00 PM EDT Office Visit Family Practice [facility] [place] [address] [facility] [place] [address] Deann Escalante DO [address] [facility] [place] [address] Scheduled Orders Name Type Priority Associated Diagnoses Orde r Schedule CHEMODENERVATION OF MUSCLES, BILATERAL Procedures Routine Intractable chronic migraine without aura and without status migrainosus Ordered: 12/15/2023 Scheduled Procedures Name Priority Associated Diagnoses Date/Ti me HYSTEROSCOPY WITH BIOPSY AND/OR POLYPECTOMY WITH OR WITHOUT D&C Menorrhagia with regular cycle 12/17/2023 11:02 AM EDT INSERTION OF INTRAUTERINE DEVICE Menorrhagia with regular cycle 12/17/2023 11:02 AM EDT PELVIC EXAMINATION UNDER ANESTHESIA Menorrhagia with regular cycle 12/17/2023 11:02 AM EDT Health Maintenance Due Date Last Done Comments [...] regular cycle- Primary Excessive or frequent menstruation Intractable chronic migraine without aura and without status migrainosus- Primary Chronic migraine without aura, with intractable migraine, so stated, without mention of status migrainosus Menorrhagia with regular cycle Excessive or frequent menstruation documented in this encounter Administered Medications Inactive Administered Medications - up to 3 most recent administrations Medication Order MAR Action Action Date Dose Rate Site botulinum toxin type a (Botox) inj 155 Units 155 Units, Subcutaneous, ONCE, On Thu12/15/23 at 1200, For 1 dose, Prior to injection, reconstitute botox vial with PF sodium chloride 0.9% to desired concentration. Given 12/15/2023 11:20 AM EDT 155 Units Other-Specify documented in this encounter Care Teams Sporting Goods Salesperson Relationship Specialty Start Date End Date Deann Escalante DO [address] [place] [address] PCP - General Family Medicine 05/05/11 documented as of this encounter
--- OUTSIDE RECORDS SUMMARY | 2024-03-26 09:03 | External Medical Summary | Summary of Care ---
Author Name Unknown Organization [facility] Address [address] [place] [address] Phone [phone] Care Team Providers Care Manager Leasing Name Role Phone Deann Escalante DO Primary Care Provider Reason for Visit * Reason Comments Travel Consult * Ancillary Services (Within 30 days (routine)) - Authorized Specialty Diagnoses / Procedures Referred By Tre ryan Referred To Contact Infectious Diseases / Infectious Disease Diagnoses Travel advice encounter Deann Escalante DO [address] [place] [address] Phone: tel: fax: Referral ID Status Reason Start Date Expiration Date Visits Requested Visits Authorized [id number] Authorized Ancillary Services Required [phone] Encounter Details Date Type Department Care Team (Late st Contact Info) Description 12/29/2023 11:00 AM EST [facility] [address] [place] [address] Albaro Cardenas MD [address] [place] [address] Travel advice encounter* Allergies Active Allergy Reactions Criticality Noted Date Comments Cat Dander 12/09/2023 Dog Dander 12/09/2023 Dust 02/20/2017 Molds & Smuts 12/29/2023 Other Allergy (See Comments) 018 Animal dander Pollen 02/20/2017 documented as of this encounter (statuses as of 12/29/2023) Medications RODOLFO 180 MG PO TABS Take 1 Tablet by mouth at bedtime. 30 Tab 6 10/29/19 12 Active ketotifen fumarate (ZADITOR) 0.025 % ophthalmic solution Instill 1 Drop into both eyes 2 times a day as needed for Allergies. 5 mL 0 05/15/19 16 Active Additional Information Patient not taking.Reported on 12/29/2023 Riboflavin 400 MG Oral Tablet Take 1 [...] DAY 20 Tablet 3 10/14/19 24 Active Qulipta 60 MG Oral Tablet (Atogepant) Take 60 mg by mouth in the morning. 30 Tablet 2 11/17/19 24 Active Additional Information Patient taking differently:60 mg OralHS, Reported on 12/29/2023 Typhoid Vaccine Oral Capsule Delayed Release Take [...] before bedtime. With meals.. 30 Tablet 12/17/19 Active Azithromycin 500 MG Oral Tablet (Zithromax)Indica tions:Travel advice encounter Take 1 Tablet by mouth in the morning. 3 Tablet 12/29/19 24 Active documented as of this encounter (statuses as of 12/29/2023) Active Problems Problem Noted Date Diagnosed Date Menorrhagia with regular cycle 11/27/2023 Bunion of great toe of left foot 02/24/2017 Other chronic allergic conjunctivitis 06/24/2011 Allergic rhinitis 06/24/2011 Atopic dermatitis 06/24/2011 Migraine 05/27/2011 documented as of this encounter (statuses as of 12/29/2023) Immunizations Name Administration Dates Next Due COVID-19 [...] PM EDT documented as of this encounter Last Filed Vital Signs Vital Sign Reading Time Taken Comments Blood Pressure - - Pulse - - Temperature 36.6 C (97.8 F) 12/29/2023 11:[address] Respiratory Rate - - Oxygen Saturation - - Inhaled Oxygen Concentration - - Weight - - Height - - Body Mass Index - - documented in this encounter Progress Notes * Albaro Cardenas MD - 12/29/2023 11:10 AM EST The patient is a 48 year old year old who is referred to the [facility] travel clinic. Itinerary Country(s): [facility] Departure Date:03/01/24 Return Date:03/08/24 Reason for travel:vacation ("birding trip") HEALTH OF THE TRAVELER: good in general Past Medical History: Diagnosis Date Asthma chilldhood and teenage years only Environmental allergies Migraine Review of patient's allergies indicates: Allergen Reactions Cat Dander Dog Dander Dust Molds & Smuts Other Allergy (See Comments) Animal dander Pollen Current Outpatient Medications Medication Sig Dispense Refill RODOLFO 180 MG PO TABS Take 1 Tablet by mouth at bedtime. 30 Tab 6 Riboflavin 400 MG Oral Tablet Take 1 Tablet by mouth in the morning. 30 Tablet 2 Betamethasone Dipropionate 0.05 % External Cream (Diprosone) APPLY TOPICALLY TO AFFECTED AREA(S) OFARMS AND FEET TWO TIMES DAILY 45 g 3 Montelukast Sodium 10 MG Oral Tablet (Singulair) TAKE 1 TABLET BY MOUTH AT BEDTIME 90 Tablet 3 Fluticasone Propionate 50 MCG/ACT Nasal Suspension (Flonase) USE 2 SPRAYS IN EACH NOSTRIL TWO TIMESDAILY 15.8 mL 5 Magnesium Oxide -Mg Supplement 400 (240 Mg) MG Oral Tablet (Mag-Ox) TAKE 1 TABLET BY MOUTH EVERY MORNING 30 Tablet 8 Rizatriptan Benzoate 10 MG Oral Tablet (Maxalt) TAKE 1 TABLET BY MOUTH NEEDED FOR MIGRAINE. MAY REPEAT AFTER 2 HOURS UP TO TWO TIMES DAILY, MAXIMUM DAILY DOSE OF 3 TABETS PER DAY 20 Tablet 3 Qulipta 60 MG Oral Tablet (Atogepant) Take 60 mg by mouth in the morning. (Patient taking differently: Take 60 mg by mouth at bedtime.) 30 Tablet 2 Typhoid Vaccine Oral Capsule Delayed Release Take 1 Capsule by mouth every other day. 4 Capsule 0 Iron 90 (18 Fe) MG Oral Tablet Take by mouth at bedtime. Docusate Sodium 100 MG Oral Capsule (Colace) Take 1 Capsule by mouth at bedtime. Botox 100 UNIT Injection Solution Reconstituted (botulinum toxin type a) Inject 200 units subcutaneously and IM according to the PREEMPT protocol for chronic migraine Ibuprofen 600 MG Oral Tablet (Motrin) Take 1 Tablet by mouth in the morning and 1 Tablet at noon and 1 Tablet before bedtime. With meals.. 30 Tablet 0 ketotifen fumarate (ZADITOR) 0.025 % ophthalmic solution Instill 1 Drop into both eyes 2 times a day as needed for Allergies. (Patient not taking: Reported on 12/29/2023) 5 mL 0 No current facility-administered medications for this visit. Immunization History Administered Date(s) Administered COVID-19 mRNA, LNP-s, No Preserve, 2-Dose Series (Moderna) 05/25/2020, 06/22/2020, 01/27/2021 COVID-19, MRNA-LNP, PF, 50 MCG/0.5 mL, 12 YRS AND ABOVE, IM (MODERNA-Spikevax) 12/27/2023 Covid-19, Mrna, Lnp-s, Pf, Bivalent, 30 Mcg, IM, 12 yrs and above (Orad) 01/15/2022 H1N1 2009 Influenza, IM 01/25/2009 HEP A - Hepatitis A (Adult > 18 yrs) 12/01/2023 PPD 08/21/2016, 07/17/2021 Seasonal Influenza Vac., MDV, IM, 0.5 mL (Fluzone) 11/07/2013, 11/07/2014 Seasonal Influenza, PF, 6 M & above, IM , (FluLaval or Fluzone) 02/20/2017, 01/07/2019, 11/19/2019, 12/01/2020, 01/15/2022, 11/27/2022 Seasonal Influenza, Quadrivalent, No Preserve, IM 03/10/2016 Seasonal Influenza, Trivalent, (IIV3), PF, (Fluzone) 11/17/2023 TD - Tetanus/Diptheria (ADULT) 06/06/2011 TDAP (age 10 and older)(Boostrix) 04/18/2021 TDAP, Age 7 and older, IM (Adacel) 01/25/2009 PREVENTIVE ADVICE Malaria prevention: No malaria risk based on itinerary Transmission areas All areas <1,700 m (?5,600 ft) elevation No malaria transmission in the cities of [facility]), [facility], or [facility] Vaccine-preventable illness Yellow Fever: Not indicated Hepatitis A: Up to date Hepatitis B: Declined Typhoid: Oral vaccine: received from PCP already Polio: Previously vaccinated [place] Encephalitis: Not indicated Other vector-borne and water-borne illness Discussed TB, Leptospirosis, and other insect-borne infections. Traveler's diarrhea prevention and self-treatment: azithromycin 500 mg po qd x3 days. Personal safety, behavior, and sexual health HIV/AIDS / Hepatitis B / STD's infection risks discussed Animal bites and rabies avoidance 1.Vaccine Not indicated 2.Avoidance of dogs, bats, monkeys, mongooses and other mammals discussed 3.Importance of post-exposure prophylaxis discussed Td: Up to date. Influenza: Up to date. Covid-19: Up to date. Albaro Cardenas MD Infectious Disease, [place] [address] documented in this encounter Nursing Notes * Yuki Roman Student - 12/29/2023 11:04 AM EST The patient is a 48 year old year old who is referred to the [facility] travel clinic. Itinerary Country(s): [facility] Departure Date:03/01/24 Return Date:03/09/24 Reason for travel:vacation. documented in this encounter Plan of Treatment Upcoming Encounters Date Type Department Care Team (Late st Contact Info) Description 01/01/2024 2:45 PM EST Imaging Radiology [facility] [facility] [place] [address] 01/06/2024 3:15 PM EST Office Visit Gynecology/Obstetrics [facility] [address] [facility] [place] [address] Connro Adams MD [address] [place] [address] 01/07/2024 7:45 AM EST Imaging Radiology [facility] 1st [facility] [place] [address] 05/27/2024 3:40 PM EDT Office Visit Neurology [facility] [address] [place] [address] Tarah Kerr MD [address] [facility] [place] [address] 12/02/2024 3:00 PM EDT Office Visit Family Practice [facility] [address] [facility] [place] [address] Deann Escalante DO [address] [facility] [address] [facility] [place] [address] Health Maintenance Due Date Last Done Comments Hepatitis B Vaccine (1 of 3 - 19+ 3-dose series) 1993 Colonoscopy 10/31/2019 Fecal Occult Blood Test 10/31/2019 Sigmoidoscopy 10/31/2019 Depression Screening 01/29/2021 01/30/2020 Mammogram 12/17/2023 12/16/2022, 03/20, 04/05/2021, Additional history exists Cologuard 05/07/2024 05/07/2021, 04/16, 05/02/2021 Colorectal Cancer Screening 05/07/2024 Diabetes Screening 11/16/2026 11/17/2023, 0 10/27/2023, 02/14/2020, Additional history exists Lipid Panel 11/16/2028 11/17/2023, 10/17, 07/06/2018, Additional history exists DTap/Tdap Vaccines (4 - Td or Tdap) 04/19/2031 04/18/2021, 06/06/2011, 01/25/2009 Influenza Vaccine (FLU shot) Completed 11/17/2023, 11/27/2022, 01/15/2022, Additional history exists COVID-19 Vaccine Completed 12/27/2023, , 01/27/2021, Additional history exists HIV Screening Discontinued HPV [...] as of this encounter Visit Diagnoses Diagnosis Travel advice encounter- Primary Other specified counseling Screening mammogram for breast cancer documented in this encounter Care Teams Manager Leasing Relationship Specialty Start Date End Date Deann Escalante DO [address] [place] [address] PCP - General Family Medicine 05/05/11 documented as of this encounter
--- OUTSIDE RECORDS SUMMARY | 2024-03-26 09:03 | External Medical Summary | Summary of Care ---
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 Details Date Type Department Care Team (Late st Contact Info) Description 01/06/2024 3:15 PM EST Office [facility] [address] [place] [address] Connor Adams MD [address] [place] [address] Preop testing* Allergies Active Allergy Reactions Criticality Noted Date Comments Cat Dander 12/09/2023 Dog Dander 12/09/2023 Dust 02/20/2017 Molds & Smuts 12/29/2023 Other Allergy (See Comments) 018 Animal dander Pollen 02/20/2017 documented as of this encounter (statuses as of 01/06/2024) Medications RODOLFO 180 MG PO TABS Take [...] Patient taking differently:60 mg OralHS, Reported on 01/06/2024 Typhoid Vaccine Oral Capsule Delayed Release Take [...] mouth in the morning. 3 Tablet 12/29/19 Active Azithromycin 250 MG Oral Tablet (Zithromax Z-Alec) Take two tablets by mouth on first day, then 1 tablet daily until gone 6 Tablet 12/31/19 Active Typhoid Vaccine Oral Capsule Delayed Release Take 1 Capsule by mouth every other day. 4 Capsule 12/31/19 Active documented as of this encounter (statuses as of 01/06/2024) Active Problems Problem Noted Date Diagnosed Date Menorrhagia with regular cycle 11/27/2023 Bunion of great toe of left foot 02/24/2017 Other chronic allergic conjunctivitis 06/24/2011 Allergic rhinitis 06/24/2011 Atopic dermatitis 06/24/2011 Migraine 05/27/2011 documented as of this encounter (statuses as of 01/06/2024) Immunizations Name Administration Dates Next Due COVID-19 [...] Sign Reading Time Taken Comments Blood Pressure 124/72 01/06/2024 3:27 PM EST Pulse - - Temperature - - Respiratory Rate - - Oxygen Saturation - - Inhaled Oxygen Concentration - - Weight 94.3 kg (208 lb) 01/06/2024 3:27 PM EST Height 167.6 cm (5' 6") 01/06/2024 3:27 PM EST Body Mass Index 33.57 01/06/2024 3:27 PM EST documented in this encounter Progress Notes * Connor Adams MD - 01/06/2024 4:07 PM EST Patient is here for follow up status post D&C with hysteroscopy. Patient was seen by AP for menorrhagia. Office endometrial biopsy done showed benign hyperplasia. Patient underwent fractional dilation and curettage with hysteroscopy and IUD Mirena placement on 12/17/2023. Pathology report showed EIN I have discussed findings with the patient. The the EIN is a new finding and I have discussed with the patient. EIN carries an 8% risks yearly of becoming endometrial cancer. Lifetime risks is 40%. 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 Patient is agreeable to undergo hysterectomy. Plan scheduled for total laparoscopic hysterectomy with salpingectomy. Ovarian preservation. Patient wishes to have procedure done after March 07, 2024. Paperwork is sent to scheduling for preop appointment and date of surgery. documented in this encounter Nursing Notes * Kusum Lassiter LPN - 01/06/2024 3:22 PM EST Pt is here for fu from 1.Examination under anesthesia 2 Dilation and curettage 3.Hysteroscopy 4. IUD Mirena Placement documented in this encounter Plan of Treatment Upcoming Encounters Date Type Department Care Team (Late st Contact Info) Description 01/07/2024 7:45 AM EST Imaging Radiology [address] [employer] [address] [place] [address] 05/27/2024 3:40 PM EDT Office Visit Neurology [facility] [address] [place] [address] Tarah Kerr MD [address] [place] [address] 12/02/2024 3:00 PM EDT Office Visit Family Practice [facility] [place] [address] [place] [address] Deann Escalante DO [address] [facility] [place] [address] Health Maintenance Due Date Last Done Comments [...] as of this encounter Visit Diagnoses Diagnosis Preop testing- Primary Preoperative examination, unspecified Screening mammogram for breast cancer documented in this encounter Care Teams Vacuum Drier Tender Relationship Specialty Start Date End Date Deann Escalante DO [address] [place] [address] PCP - General Family Medicine 05/05/11 documented as of this encounter
--- OUTSIDE RECORDS SUMMARY | 2024-03-26 09:03 | External Medical Summary | Summary of Care ---
Author Name Unknown Organization [facility] Address [address] [place] [address] Phone [phone] Care Team Providers Care Telegraph Plant Maintainer Name Role Phone Deann Escalante DO Primary Care Provider Encounter Details Date Type Department Care Team (Late st Contact Info) Description 11/17/2023 Telephone Gynecology/Obstetrics [facility] [address] [place] [address] Monisha Broderick PA-C [address] [place] [address] Allergies Active Allergy Reactions Criticality Noted Date Comments Dust 02/20/2017 Other Allergy (See Comments) 018 Animal dander Pollen 02/20/2017 documented as of this encounter (statuses as of 11/18/2023) Medications Medication Sig Dispensed Refills Start Date [...] as of this encounter (statuses as of 11/18/2023) Active Problems Problem Noted Date Diagnosed Date Bunion of great toe of left foot 02/24/2017 Other chronic allergic conjunctivitis 06/24/2011 Allergic rhinitis 06/24/2011 Atopic dermatitis 06/24/2011 Migraine 05/27/2011 documented as of this encounter (statuses as of 11/18/2023) Immunizations Name Administration Dates Next Due COVID-19 [...] on file documented as of this encounter Miscellaneous Notes * Telephone Encounter - Jordyn Prasad LPN - 11/18/2023 10:09 AM EDT Pt returned call, aware of results and Monisha's recommendations. Pt accepted appt with Dr Adams 11/27/23. * Telephone Encounter - Jordyn Prasad LPN - 11/18/2023 9:12 AM EDT left message for patient to call office. * Telephone Encounter - Judith Powell LPN - 11/17/2023 4:03 PM EDT ----- Message from Monisha Broderick sent at 11/17/2023 3:58 PM EDT ----- Attempted to contact patient. LMOM for patient to return call. Received pathology results back. EMB benign proliferative endometrium. Cervical polyp showed hyperplasia. Pap in process. Given her thickened lining, bleeding and these results would highly recommend she see one of our physician back to discuss further evaluation and management as concerned these results although not malignancy may need further evaluation especially given cervical hyperplasia seen. We did discuss briefly at appointment that hysteroscopy may be needed. I think Jordyn was going to get her scheduled for 11/27/[address] Adams as he had openings if that works for her. Please try to call her back regarding these results. documented in this encounter Plan of Treatment Upcoming Encounters Date Type Department Care Team (Late st Contact Info) Description 11/27/2023 8:00 AM EDT Office Visit Gynecology/Obstetrics [facility] [address] [facility] [place] [address] Connor Adams MD [address] [facility] [place] [address] 12/01/2023 3:40 PM EDT Office Visit Family Practice [facility] [address] [place] [address] Deann Escalante, DO [address] [place] [address] 12/15/2023 10:40 AM EDT Office Visit Neurology [facility] [address] [place] [address] [address] John Mcelroy, DO [address] [place] [address] 12/18/2023 2:45 PM EDT Imaging Radiology [facility] [address] [facility] [address] [facility] [place] [address] 05/27/2024 3:40 PM EDT Office Visit Neurology [facility] [address] [place] [address] Tarah Kerr MD [address] [facility] [place] [address] Health Maintenance Due Date Last Done Comments [...] filedocumented as of this encounter Care Teams Telegraph Plant Maintainer Relationship Specialty Start Date End Date Deann Escalante DO [address] [place] [address] PCP - General Family Medicine 05/05/11 documented as of this encounter
--- OUTSIDE RECORDS SUMMARY | 2024-03-26 09:03 | External Medical Summary | Summary of Care ---
Author Name Unknown Organization [facility] Address [address] [place] [address] Phone [phone] Care Team Providers Care Commercial Loan Coordinator Name Role Phone Deann Escalante DO Primary Care Provider Encounter Details Date Type Department Care Team (Late st Contact Info) Description 11/17/2023 Telephone Gynecology/Obstetrics [facility] [address] [place] [address] Monisha Broderick PA-C [address] [place] [address] Allergies Active Allergy Reactions Criticality Noted Date Comments Dust 02/20/2017 Other Allergy (See Comments) 018 Animal dander Pollen 02/20/2017 documented as of this encounter (statuses as of 11/18/2023) Medications Medication Sig Dispensed Refills Start Date End Date Status RODOLOF 180 MG PO TABS one tablet daily [...] 18 years and over) Not on file 3 Are you (or your family) shimon eless [...] get her scheduled for 11/27/[address] Bryan as he had openings if that works for her. Please try to call her back regarding these results. documented in this encounter Plan of Treatment Upcoming Encounters Date Type Department Care Team (Late st Contact Info) Description 11/27/2023 8:00 AM EDT Office Visit Gynecology/Obstetrics [facility] [address] [place] [address] Connor Adams MD [address] [facility] [place] [address] 12/01/2023 3:40 PM EDT Office Visit Family Practice [facility] [address] [place] [address] Deann Escalante, DO [address] [facility] [place] [address] 12/15/2023 10:40 AM EDT Office Visit Neurology [facility] [address] [place] [address] John Mcelroy, DO [address] [place] [address] 12/18/2023 2:45 PM EDT Imaging Radiology [facility] 2nd [facility] [place] [address] [facility] [place] [address] 05/27/2024 3:40 PM EDT Office Visit Neurology [facility] [address] [place] [address] Tarah Kerr MD [address] [facility] [place] [address] Health Maintenance Due Date Last Done Comments [...] filedocumented as of this encounter Care Teams Commercial Loan Coordinator Relationship Specialty Start Date End Date Deann Escalante DO [address] [place] [address] PCP - General Family Medicine 05/05/11 documented as of this encounter
--- OUTSIDE RECORDS SUMMARY | 2024-03-26 09:03 | External Medical Summary | Summary of Care ---
Author Name Unknown Organization [facility] Address [address] [place] [address] Phone [phone] Care Team Providers Care Jewel Corner Brushing Machine Operator Name Role Phone Deann Escalante DO Primary Care Provider Reason for Referral * Ancillary Services (Within 30 days (routine)) - Authorized Specialty Diagnoses / Procedures Referred By Tre ryan Referred To Contact Infectious Diseases / Infectious Disease Diagnoses Travel advice encounter Deann Escalante DO [address] [place] [address] Referral ID Status Reason Start Date Expiration Date Visits Requested Visits Authorized [id number] Authorized Ancillary Services Required 4 [phone] Question Answer Referral Priority Within 30 days (routine) Where should this appointment be scheduled? [facility] Date of travel: 02/29/2024 Travel destination? [place] Comments Going to [place] on a birding expedition to Reason for Visit * Reason Comments Physical-Exam Encounter Details Date Type Department Care Team (Late st Contact Info) Description 12/01/2023 3:40 PM EDT Office Visit Family Practice [facility] [address] [place] [address] Deann Escalante DO [address] [place] [address] Physical exam, annual*; Travel advice encounter Allergies Active Allergy Reactions Criticality Noted Date Comments Cat Dander 12/09/2023 Dog Dander 12/09/2023 Dust 02/20/2017 Other Allergy (See Comments) 018 Animal dander Pollen 02/20/2017 documented as of this encounter (statuses as of 12/16/2023) Medications Medication Sig Dispensed Refills Start Date [...] Active Betamethasone Dipropionate 0.05 % External Cream (Diprosone)Indicat ions:Eczema of both hands APPLY TOPICALLY TO AFFECTED AREA(S) OF ARMS AND FEET TWO TIMES DAILY 45 g 3 04/30/2023 Active Montelukast Sodium 10 MG Oral Tablet (Singulair)Indicat ions:Seasonal allergic rhinitis due to pollen TAKE 1 TABLET BY MOUTH AT BEDTIME 90 Tablet 3 05/10/2023 Active Fluticasone Propionate 50 MCG/ACT Nasal Suspension (Flonase)Indicatio ns:Seasonal allergic rhinitis due to pollen USE 2 SPRAYS IN EACH NOSTRIL TWO TIMES DAILY 15.8 mL 5 07/07/2023 Active Magnesium Oxide -Mg Supplement 400 (240 Mg) MG Oral Tablet (Mag-Ox) TAKE 1 TABLET BY MOUTH EVERY MORNING 30 Tablet 8 09/23/2023 Active Rizatriptan Benzoate 10 MG Oral Tablet (Maxalt)Indication s:Chronic migraine without aura with status migrainosus, not [...] taking differently:60 mg OralHS, Reported on 12/09/2023 Triamcinolone Acetonide 0.5 % External Cream (Aristocort) Apply topically to affected area 2 times a day. To affected area. 60 g 5 11/27/2022 Discontinue d(Medicatio n List Clean Up) documented as of this encounter (statuses as of 12/16/2023) Active Problems Problem Noted Date Diagnosed Date Menorrhagia with regular cycle 11/27/2023 Bunion of great toe of left foot 02/24/2017 Other chronic allergic conjunctivitis 06/24/2011 Allergic rhinitis 06/24/2011 Atopic dermatitis 06/24/2011 Migraine 05/27/2011 documented as of this encounter (statuses as of 12/16/2023) Immunizations Name Administration Dates Next Due COVID-19 [...] Sign Reading Time Taken Comments Blood Pressure 112/66 12/01/2023 3:39 PM EDT Pulse 64 12/01/2023 3:39 PM EDT Temperature 36.7 C (98 F) 12/01/2023 3:39 PM EDT Respiratory Rate 16 12/01/2023 3:39 PM EDT Oxygen Saturation 97% 12/01/2023 3:39 PM EDT Inhaled Oxygen Concentration - - Weight 94.8 kg (209 lb) 12/01/2023 3:39 PM EDT Height - - Body Mass Index 33.73 11/27/2023 7:53 AM EDT documented in this encounter Patient Instructions * Patient Instructions* Deann Escalante DO - 12/01/2023 4:18 PM EDT Images from the original note were not included. documented in this encounter Progress Notes * Deann Escalante DO - 12/01/2023 4:06 PM EDT Cici Hebert is a 48 year old female who presents for an annual check-up. Current concerns: Patient's past medical, surgical, family, and social history were reviewed. Medications, allergies, immunizations, and health care maintenance screenings were also reviewed. Has uterine fibroids and menorrhagia Past Medical History: Diagnosis Date Asthma chilldhood and teenage years only Environmental allergies Migraine Past Surgical History: Procedure Laterality Date DENTAL SURGERY PROCEDURE NEC 1992 Current Outpatient Medications Medication Sig Dispense Refill RODOLFO 180 MG PO TABS one tablet daily 30 Tab 6 ketotifen fumarate (ZADITOR) 0.025 % ophthalmic solution Instill 1 Drop into both eyes 2 times a day as needed for Allergies. 5 mL 0 Riboflavin 400 MG Oral Tablet Take 1 [...] mouth in the morning. 30 Tablet 2 No current facility-administered medications for this visit. Review of patient's allergies indicates: Allergen Reactions Dust Other Allergy (See Comments) Animal dander Pollen Social History Socioeconomic History Marital status: Single [...] on file Food Insecurity: No Food Insecurity (11/17/2022) Food [...] on file Transportation Needs: No Transportation Needs (11/17/2022) Transportation Needs Do you have trouble getting a ride to medical visits or work? (Adult - for ages 18 years and over):Never True Does your family have a hard time getting a ride to doctors visits? (Household - for ages 0-17 years): Not on file Has lack of transportation kept you from medical appointments, meetings, work, or from getting things needed for daily living? Check all that apply. (Adult - for ages 18 years and over): Not on file Do you (or your family) have trouble finding or paying for a ride (transportation)? (Household - for ages 0-17 years): Not on file Social Connections: Unknown (11/18/2023) Social Connections How often do you feel lonely or isolated from those around you? (Adult - for ages 18 years and over): Not on file Housing Stability: Low Risk (11/17/2022) Housing Stability Do you currently live in a usp or have no steady place to sleep at night? (Adult - for ages 18 years and over): No Do you think you are at risk of becoming homeless? (Adult - for ages 18 years and over): No Does your family worry about paying for your home or becoming homeless? (Household - for ages 0-17 years): Not on file Are you homeless or worried that you might be in the future? (Adult - for ages 18 years and over): Not on file Are you (or your family) homeless or worried that you might be in the future? (Household - for ages0-17 years): Not on file Family History Problem Relation Name Age of Onset Neurological Disorder Grandfather (Maternal) Neena Gerig's disease Thyroid Disorder None Hypertension None Heart Disorder None Diabetes None Cancer None Breast Cancer None Stroke Grandmother (Maternal) Allergies Father allergic rhinitis Asthma Father Review Of Systems Extensive ROS Constitutional (f/c/wt/vision/hearing): Negative Resp (cough/sob/monk): Negative CV (cp/palp/fluttering/diaphoresis/monk/pnd):Negative GI (n/v/d/hrtburn): Negative Endo (hair/cold or heat intol/ 3 p's): Negative Neuro (shaking/weak/fatigu/parasthesi/): Negative Skin (rash/easy bruis/xerosis): Negative Psy (si/hi/halluc/): Negative (nocturia/hesit/drib/sexual review): Negative Lymph (swollen glands/b sx's/: Negative PHYSICAL EXAMINATION: BP 112/66 | Pulse 64 | Temp 36.7 C (98 F) (Tympanic) | Resp 16 | Wt 94.8 kg (209 lb) | LMP (LMPUnknown) | SpO2 97% | BMI 33.73 kg/m | BSA 2.1 m General appearance - well nourished, comfortable. Skin - no rashes or lesions suspicious for malignancy. Head - without deformity, mass, or tenderness. Eyes - conjuctiva clear, EOMI, Ears - canals clear, TMs normal. Nose/Sinuses - normal mucosa without mass. Oropharynx -no oral lesions. Neck - normal ROM, supple, without adenopathy, thyromegaly, or bruit. Back - without deformity or tenderness. Lungs - symmetric and full breath sounds without rales, rhonchi, or wheezes. Heart - normal precordial impulse, PMI nondisplaced, normal S1,S2, without murmurs, rubs, or gallops. carotid upstrokes 2/4 without bruit. Abdomen - nondistended, no organomegaly, nontender to palpation,bowel sounds active. Extremities - no cyanosis, clubbing, or edema. Musculoskeletal - joints without restriction in range of motion or deformity. Peripheral pulses - symmetric and intact. Neuro - normal gait and station, without tremor, symmetric motor strength, DTRs symmetric. Hemoglobin AIC Results: No components found for: "[id number]" Lab Results Component Value Date/Time LDL (CALCULATED)-OUTSIDE LAB 137 (H) 10/27/2023 12:00 AM LDL CHOLESTEROL (CALCULATED) - [facility] 138 (H) 11/17/2023 02:17 PM LDL CHOLESTEROL (CALCULATED) - [facility] 117 07/06/2018 07:22 AM LDL CHOLESTEROL (CALCULATED) - [facility] 106 02/22/2016 07:30 AM LDL CHOLESTEROL (DIRECT MEASURE) - [facility] NOT APPLICABLE 07/06/2018 07:22 AM AST Results: Lab Results Component Value Date/Time AST - [facility] 22 07/06/2018 07:22 AM ALT Results: Lab Results Component Value Date/Time ALT - [facility] 15 07/06/2018 07:22 AM Social History Tobacco Use Smoking Status Never Smokeless Tobacco Never Tobacco Comments no passive smoke BP Readings from Last 3 Encounters: 12/01/23 112/66 11/27/23 104/70 11/17/23 108/68 No results found for: "MICROALB" Visit date not found Immunization History Administered Date(s) Administered COVID-19 mRNA, LNP-s, No Preserve, 2-Dose Series (Moderna) 05/25/2020, 06/22/2020, 01/27/2021 Covid-19, Mrna, Lnp-s, Pf, Bivalent, 30 Mcg, IM, 12 yrs and above (Pfizer) 01/15/2022 H1N1 2009 Influenza, IM 01/25/2009 PPD 08/21/2016, 07/17/2021 Seasonal Influenza Vac., MDV, [...] Age 7 and older, IM (Adacel) 01/25/2009 ASSESSMENT/PLAN: A healthy, low fat, low cholesterol diet and 30-60 minutes of cardiovascular exercise daily were encouraged. A total of 1500mg of Calcium and 1000 IU of vitamin D were recommended daily, to be obtained from a combination of both diet and supplement sources. UTD vaccines SPF 30+ Physical exam, annual (Primary) Travel advice encounter - TRAVEL CLINIC REFERRAL OP - HEP A VACCINE, 19 YRS AND OLDER, IM Reviewed on cdc.gov. Birding trip to [facility] in [place], [place] set [place] mountains. Unsure if YFV and malaria proph are needed, will ask ID Will give pt typhoid, and Hep A. Follow Up: Return for Clinic Visit. | For: Clinic Visit Deann Escalante DO documented in this encounter Nursing Notes * Scarlett Reese LPN - 12/01/2023 3:38 PM EDT Cici Hebert presents for annual physical exam. Medications & HM reviewed. documented in this encounter Plan of Treatment Upcoming Encounters Date Type Department Care Team (Latest Contact Info) Description 12/17/2023 11:02 AM EDT Hospital Encounter [facility], Operating Room [facility] [address] [place] [phone] Connor Adams MD [address] [place] [address] 12/17/2023 11:02 AM EDT - 12/17/2023 12:00 PM EDT Surgery OR [facility], Operating Room [facility] [address] [place] [phone] Connor Adams MD [address] [place] [address] HYSTEROSCOPY WITH BIOPSY AND/OR POLYPECTOMY WITH OR WITHOUT D&C 12/29/2023 11:00 AM EST Office Visit Infectious Disease, [place] [address] [place], [place] [id number] Albaro Cardenas MD [address] [place] [address] 01/06/2024 3:15 PM EST Office Visit Gynecology/Obstetr ics [facility] [place] [address] Connor Adams MD [address] [place] [address] 05/27/2024 3:40 PM EDT Office Visit Neurology [facility] [address] [facility] [place] [address] Tarah Kerr MD [address] [facility] [place] [address] 12/02/2024 3:00 PM EDT Office Visit Family Practice [facility] [address] [facility] [place] [address] Deann Escalante DO [address] [facility] [place] [address] Scheduled Procedures Name Priority Associated Diagnoses Date/Ti me HYSTEROSCOPY WITH BIOPSY AND/OR POLYPECTOMY WITH OR WITHOUT D&C Menorrhagia with regular cycle 12/17/2023 11:02 AM EDT INSERTION OF INTRAUTERINE DEVICE Menorrhagia with regular cycle 12/17/2023 11:02 AM EDT PELVIC EXAMINATION UNDER ANESTHESIA Menorrhagia with regular cycle 12/17/2023 11:02 AM EDT Scheduled Referrals Name Type Priority Associated Diagnoses Orde r Schedule TRAVEL CLINIC REFERRAL OP Referral Within 30 days (routine) Travel advice encounter Ordered: 12/01/2023 Health Maintenance Due Date Last Done Comments [...] regular cycle- Primary Excessive or frequent menstruation Physical exam, annual- Primary Routine general medical examination at a health care facility Travel advice encounter Other specified counseling Menorrhagia with regular cycle Excessive or frequent menstruation documented in this encounter Care Teams Jewel Corner Brushing Machine Operator Relationship Specialty Start Date End Date Deann Escalante DO [address] [place] [address] PCP - General Family Medicine 05/05/11 documented as of this encounter
--- OUTSIDE RECORDS SUMMARY | 2024-03-26 09:03 | External Medical Summary | Summary of Care ---
Author Name Unknown Organization [facility] Address [address] [place] [address] Phone [phone] Care Team Providers Care Engineering Group Leader Name Role Phone Deann Escalante Primary Care Provider Reason for Visit * Reason Comments Facility Planner Return Encounter Details Date Type Department Care Team (Late st Contact Info) Description 12/08/2023 9:30 AM EDT Office Visit Gynecology/Obstetrics [facility] [address] [place] [address] Connor Adams MD [address] [place] [address] Preop testing* Allergies Active Allergy Reactions Criticality Noted Date Comments Dust 02/20/2017 Other Allergy (See Comments) 018 Animal dander Pollen 02/20/2017 documented as of this encounter (statuses as of 12/08/2023) Medications Medication Sig Dispensed Refills Start Date [...] the morning. 30 Tablet 2 11/17/2023 Active Typhoid Vaccine Oral Capsule Delayed Release Take 1 Capsule by mouth every other day. 4 Capsule 12/07/2023 Active documented as of this encounter (statuses as of 12/08/2023) Active Problems Problem Noted Date Diagnosed Date Menorrhagia with regular cycle 11/27/2023 Bunion of great toe of left foot 02/24/2017 Other chronic allergic conjunctivitis 06/24/2011 Allergic rhinitis 06/24/2011 Atopic dermatitis 06/24/2011 Migraine 05/27/2011 documented as of this encounter (statuses as of 12/08/2023) Immunizations Name Administration Dates Next Due COVID-19 [...] 12/02/2023 Does the household have a re lar source of income? (Household - for ages [...] Sign Reading Time Taken Comments Blood Pressure 112/64 12/08/2023 9:30 AM EDT Pulse - - Temperature - - Respiratory Rate - - Oxygen Saturation - - Inhaled Oxygen Concentration - - Weight 94.3 kg (208 lb) 12/08/2023 9:30 AM EDT Height 167.6 cm (5' 6") 12/08/2023 9:30 AM EDT Body Mass Index 33.57 12/08/2023 9:30 AM EDT documented in this encounter Progress Notes * Connor Adams MD - 12/08/2023 2:58 PM EDT Pt here for preop History and physical examination done Consnet obtained documented in this encounter H&P Notes * Connor Adams MD - 12/08/2023 2:54 PM EDT [address] [address] Appt line [phone] Context: (HPI) 48 year ol G0 with [...] Del Comments GA Length Weight Type Site Facility Planner History: Menstrual Index: / / days. Denies h/o STDs and abnormal Paps. Her past medical/surgical histories and current medications are recorded in the electronic record. Past Surgical History: Procedure Laterality Date DENTAL SURGERY PROCEDURE [facility] 1992 Family History Problem Relation Name Age [...] Stability Do you currently live in a mcfp or have no steady place to sleep [...] curettage 3.Hysterosocpy 4, IUD Mirena Placement Connor Adams MD 12/08/2023 2:54 PM documented in this encounter Nursing Notes * Kusum Lassiter LPN - 12/08/2023 9:22 AM EDT Pt is here for pre-op for Patient is scheduled for exam under anesthesia dilation and curettage hysteroscopy and IUD Mirena placement. documented in this encounter Plan of Treatment Upcoming Encounters Date Type Department Care Team (Latest Contact Info) Description 12/15/2023 10:40 AM EDT Office Visit Neurology [facility] [place] [address] [place] [address] John Mcelroy DO [address] [facility] [place] [address] 12/17/2023 12:50 PM EDT Hospital Encounter [facility] [address] [place] [phone] Connor Adams MD [address] [place] [address] 12/17/2023 12:50 PM EDT - 12/17/2023 1:48 PM EDT Surgery OR [facility] Operating [facility] [address] [place] [phone] Connor Adams MD [address] [place] [address] HYSTEROSCOPY WITH BIOPSY AND/OR POLYPECTOMY WITH OR WITHOUT D&C 12/29/2023 11:00 AM EST Office Visit Infectious Disease, [facility] [address] [place] [address] Albaro Cardenas MD [address] [place] [address] 01/06/2024 3:15 PM EST Office Visit Gynecology/Obstetr [facility] [address] [place] [address] Connor Adams MD [address] [place] [address] 05/27/2024 3:40 PM EDT Office Visit Neurology [employer] [address] [place] [address] Tarah Kerr MD [address] [place] [address] 12/02/2024 3:00 PM EDT Office Visit Family Practice [facility] [address] [facility] [place] [address] Deann Escalante, [address] [facility] [place] [address] Scheduled Procedures Name Priority Associated Diagnoses Date/Ti me HYSTEROSCOPY WITH BIOPSY AND/OR POLYPECTOMY WITH OR WITHOUT D&C Menorrhagia with regular cycle 12/17/2023 12:50 PM EDT INSERTION OF INTRAUTERINE DEVICE Menorrhagia with regular cycle 12/17/2023 12:50 PM EDT PELVIC EXAMINATION UNDER ANESTHESIA Menorrhagia with regular cycle 12/17/2023 12:50 PM EDT Health Maintenance Due Date Last Done [...] regular cycle- Primary Excessive or frequent menstruation Preop testing- Primary Preoperative examination, unspecified Menorrhagia with regular cycle Excessive or frequent menstruation documented in this encounter Care Teams Engineering Group Leader Relationship Specialty Start Date End Date Deann Escalante DO [address] [place] [address] PCP - General Family Medicine 05/05/11 documented as of this encounter
--- OUTSIDE RECORDS SUMMARY | 2024-03-26 09:03 | External Medical Summary | Summary of Care ---
Author Name Unknown Organization [facility] Address [address] [place] [address] Phone [phone] Care Team Providers Care Medical Staff Services Manager Name Role Phone Deann Escalante Primary Care Provider Reason for Visit * Reason Comments Cold Symptoms Encounter Details Date Type Department Care Team (Late st Contact Info) Description 12/31/2023 8:40 AM EST Telemedicine Virtual Urgent Care [address] [place] [address] Bigg Muniz CRNP [address] [place] [address] Bronchitis, complicated* Allergies Active Allergy Reactions Criticality Noted Date Comments Cat Dander 12/09/2023 Dog Dander 12/09/2023 Dust 02/20/2017 Molds & Smuts 12/29/2023 Other Allergy (See Comments) 018 Animal dander Pollen 02/20/2017 documented as of this encounter (statuses as of 12/31/2023) Medications RODOLFO 180 MG PO TABS Take [...] the morning. 3 Tablet 12/29/19 24 Active predniSONE 20 MG Oral Tablet (Deltasone) Take 2 Tablets by mouth in the morning for 5 days. 10 Tablet 12/31/19 24 024 Active Azithromycin 250 MG Oral Tablet (Zithromax Z-Alec) Take two tablets by mouth on first day, then 1 tablet daily until gone 6 Tablet 12/31/19 24 Active documented as of this encounter (statuses as of 12/31/2023) Active Problems Problem Noted Date Diagnosed Date Menorrhagia with regular cycle 11/27/2023 Bunion of great toe of left foot 02/24/2017 Other chronic allergic conjunctivitis 06/24/2011 Allergic rhinitis 06/24/2011 Atopic dermatitis 06/24/2011 Migraine 05/27/2011 documented as of this encounter (statuses as of 12/31/2023) Immunizations Name Administration Dates Next Due COVID-19 [...] PM EDT documented as of this encounter Progress Notes * Bigg Muniz CRNP - 12/31/2023 8:46 AM EST Images from the original note were not included. History of Present Illness Alexey Hebert is a 48 year old female that presents for Cold Symptoms Patient location: HOME. I was not in a hospital or clinic location. After connecting through [employer], patient was verified with two unique identifiers. 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 Methods to assure confidentiality were taken. Patient acknowledged consent and understanding of privacy and security of the Telemedicine visit. The patient agreed to participate. 48yo female reports started about 2 weeks ago with cold symptoms, states she is still having a lot of cough, chest congestion and chest tightness. Denies fevers. Using OTC w/o relief. Physical Exam There were no vitals filed for this visit. BP Readings from Last 3 Encounters: 12/17/23 126/72 12/08/23 112/64 12/01/23 112/66 Wt Readings from Last 3 Encounters: 12/17/23 94.3 kg (208 lb) 12/08/23 94.3 kg (208 lb) 12/01/23 94.8 kg (209 lb) BMI Readings from Last 3 Encounters: 12/17/23 33.57 kg/m 12/08/23 33.57 kg/m 12/01/23 33.73 kg/m Ht Readings from Last 3 Encounters: 12/17/23 1.676 m (5' 6") 12/08/23 1.676 m (5' 6") 11/27/23 1.676 m (5' 6") Physical Exam Constitutional: General: She is not in acute distress. Appearance: Normal appearance. She is not toxic-appearing. Pulmonary: Effort: Pulmonary effort is normal. No respiratory distress. Neurological: Mental Status: She is alert and oriented to person, place, and time. I have reviewed the following results: None Assessment and Plan Bronchitis, complicated Rec taking the medications as prescribed, saline sprays, OTC as needed. Limited evaluation d/t nature of telemedicine visit. If sx worsen or fail to improve, f/u with PCP or report to nearest CC location. Patient/guardian demonstrates understanding of the visit, course of treatment, and instructions. Wrap-Up Time: I spent a total of 10-19 minutes (exact time 10 mins) on the date of service in preparation, delivery, and documentation of the care provided to Alexey Hebert excluding any time spent in the performance of separately billed services. documented in this encounter Plan of Treatment Upcoming Encounters Date Type Department Care Team (Late st Contact Info) Description 01/01/2024 2:45 PM EST Imaging Radiology [facility] [address] [facility] [address] [facility] [place] [address] 01/06/2024 3:15 PM EST Office Visit Gynecology/Obstetrics [address] [place] [address] Connor Adams MD [address] [facility] [place] [address] 01/07/2024 7:45 AM EST Imaging Radiology [facility] [address] [facility] [address] [facility] [place] [address] 05/27/2024 3:40 PM EDT Office Visit Neurology [facility] [place] [address] Tarah Kerr MD 200 [facility] [place] [address] 12/02/2024 3:00 PM EDT Office Visit Family Practice [facility] [place] [address] [place] [address] Deann Escalante DO [address] [place] [address] Health Maintenance Due Date Last Done Comments Hepatitis B Vaccine (1 of 3 - 19+ 3-dose series) 1994 Colonoscopy 10/31/2019 Fecal Occult Blood Test 10/31/2019 Sigmoidoscopy 10/31/2019 Depression Screening 01/29/2021 01/30/2020 Mammogram 12/17/2023 12/16/2022, /02/2021, 04/05/2021, Additional history exists Cologuard 05/07/2024 05/07/2021, [...] as of this encounter Visit Diagnoses Diagnosis Bronchitis, complicated- Primary Bronchitis, not specified as acute or chronic Screening mammogram for breast cancer documented in this encounter Care Teams Medical Staff Services Manager Relationship Specialty Start Date End Date Deann Escalante DO [address] [place] [address] PCP - General Family Medicine 05/05/11 documented as of this encounter
--- OUTSIDE RECORDS SUMMARY | 2024-03-26 09:04 | External Medical Summary ---
Author Name Unknown Address Unknown Organization [id number]:[facility] [place] - [address] [place] [address] Laboratory Report Ordering Provider Test Date Status PEBBLES BAPTISTE 11/17/2023 14:17:19 Final Observation Date Value Abnormality Reference (Units ) Status Iron 11/17/2023 14:17:19 36 33-151 (ug/dL) Final Iron-binding capacity 11/17/2023 14:17:19 408 250-425 (ug/dL) Final Transferrin Sat % 11/17/2023 14:17:19 9 Below low normal 15-55 (%) Final Performing Location [facility] - [address] [place] [address]
--- OUTSIDE RECORDS SUMMARY | 2024-03-26 09:04 | External Medical Summary ---
Author Name Unknown Address Unknown Organization [id number]:[facility] [place] - [address] [place] [address] Laboratory Report Ordering Provider Test Date Status LYLE BAPTISTEYOANNA 11/17/2023 14:17:19 Final Observation Date Value Abnormality Reference (Units ) Status Retic, % (auto) 11/17/2023 14:17:19 1.62 0.80-1.90 (%) Final Reticulocytes, Absolute 11/17/2023 14:17:19 69.3 31.3-100.1 (K/uL) Final Reticulocyte fraction, immature 11/17/2023 14:17:19 16.7 2.5-20.6 (%) Final Reticulocyte HGB 11/17/2023 14:17:19 24.2 Below low normal 29.7-37.4 (pg) Final Performing Location [facility] - [address] [place] [address]
--- OUTSIDE RECORDS SUMMARY | 2024-03-26 09:04 | External Medical Summary | Summary of Care ---
Author Name Unknown Organization [facility] Address [address] [place] [address] Phone [phone] Care Team Providers Care Erecting Crane Operator Name Role Phone Oliva Escalante DO Primary Care Provider Reason for Referral * Evaluate & Treat - Unlimited Visits (Within 30 days (routine)) - Authorized Specialty Diagnoses / Procedures Referred By Tre ryan Referred To Contact Obstetrics/Gynecology / Gynecology Obstetrics Diagnoses Anemia, unspecified type Oliva Escalante DO [address] [place] [address] Referral ID Status Reason Start Date Expiration Date Visits Requested Visits Authorized [id number] Authorized Specialty Services Required 11/10/2023 999 999 Question Answer What condition is the patient being seen for? Thickened endometrium Is the patient bleeding? Yes Patient will need an ultrasound prior to being seen by gynecology. I acknowledge Referral Priority Within 30 days (routine) Where should this appointment be scheduled? [facility] Comments Hb=9.7, fibroids, EMS 33, EMB recommended Reason for Visit * Reason Onset Date Comments Test Results 11/08/2023 Unexpected or In determinate Result Encounter Details Date Type Department Care Team (Late st Contact Info) Description 11/08/2023 Telephone Laboratory, [facility] [address] [place] [address] Oliva Escalante DO [address] [place] [id number] Test Results (Unexpected or Indeterminate ... Allergies Active Allergy Reactions Criticality Noted Date Comments Dust 02/20/2017 Other Allergy (See Comments) 018 Animal dander Pollen 02/20/2017 documented as of this encounter (statuses as of 11/10/2023) Medications Medication Sig Dispensed Refills Start Date End Date Status RODOLFO 180 MG PO TABS one tablet daily 30 Tab 6 10/29/2011 Active ketotifen fumarate (ZADITOR) 0.025 % ophthalmic solution Instill 1 Drop into both eyes 2 times a day as needed for Allergies. 5 mL 0 05/15/2015 Active Ajovy 225 MG/1.5ML Subcutaneous Solution Prefilled Syringe (Fremanezumab-[facility]) INJECT 1.5 ML UNDER THE SKIN EVERY MONTH. 1.5 mL 5 09/05/2022 Active Additional Information Patient not taking.Reported on 05/12/2023 Riboflavin 400 MG Oral Tablet Take 1 Tablet by mouth in the morning. 30 Tablet 2 10/16/2022 Active Gabapentin 100 MG Oral Capsule (Neurontin) 1 tab at onset of migraine with tylenol or motrin may repeat in 1 hour. 30 Capsule 2 10/16/2022 Active Additional Information Patient not taking.Reported on 05/12/2023 Triamcinolone Acetonide 0.5 % External Cream (Aristocort) Apply topically to affected area 2 times a day. To affected area. 60 g 5 11/27/2022 Active Additional Information Patient not taking.Reported on 05/12/2023 Betamethasone Dipropionate 0.05 % External Cream (Diprosone)Indicati [...] PER DAY 20 Tablet 3 10/14/2023 Active documented as of this encounter (statuses as of 11/10/2023) Active Problems Problem Noted Date Diagnosed Date Bunion of great toe of left foot 02/24/2017 Other chronic allergic conjunctivitis 06/24/2011 Allergic rhinitis 06/24/2011 Atopic dermatitis 06/24/2011 Migraine 05/27/2011 documented as of this encounter (statuses as of 11/10/2023) Immunizations Name Administration Dates Next Due COVID-19 mRNA, LNP-s, No Pre serve, 2-Dose Series (Moderna) 01/27/2021,06/22/2020,05/25/2020 Covid-19, Mrna, Lnp-s, Pf, Bivalent, 30 Mcg, IM, 12 yrs and above (Pfizer) 01/15/2022 H1N1 2009 Influenza, IM 01/25/2009 PPD 07/17/2021,08/21/2016 Seasonal Influenza, PF, 6 M & above, IM , (FluLaval or Fluzone) 11/27/2022,01/15/2022,12/01/2020, 0 20,01/07/2019,02/20/2017 Seasonal Influenza, Quadriva lent, No Preserve, IM 03/10/2016 Seasonal Influenza, Trivalen t, (IIV3), with Preserv, (Fluzone) 11/07/2014,11/07/2013 TD - Tetanus/Diptheria (ADULT) 06/06/2011 TDAP (age [...] our heating, water, or electric bill? No 11/17/2022 Is your family able to pay t he heat, water, or electric bill? (Household - for ages 0-17 years) Not on file 11/17/2022 Does your family have access to good internet? (Household - for ages 0-17 years) Not on file 11/17/2022 Employment Status Answer Date Recorded Are you unemployed or without regular income? No 11/17/2022 Does the household have a re gular source of income? (Household - for ages 0-17 years) Not on file 11/17/2022 Social Connections Answer Date Recorded How often do you feel lonely or isolated from th ose around you? Rarely 11/17/2022 Financial Resource Strain Answer Date R ecorded [...] as of this encounter Miscellaneous Notes * Addendum Note - Oliva Escalante DO - 11/10/2023 5:04 PM EDTAddended by: OLIVA ESCALANTE on: 11/10/2023 05:04 PM Modules accepted: Orders * Telephone Encounter - Stanley Mcgraw Vandana Manning, MADDY - 11/08/2023 1:55 AM EDT Images from the original note were not included. Hello- The radiologist discovered an unexpected or indeterminate finding on Cici Hebert ([id number]) and asks that you review the following report. Exam End Date Exam End Time 11/06/2023 3:31 PM US PELVIS TRANS-VAGINAL NON-OB Order: [id number] Status: Final result Visible to patient: Yes (seen) Next appt: 11/17/2023 at 04:00 PM in *Neuro* (Tarah Ramos PA-C) Dx: Menometrorrhagia 0 Result Notes Findings Acuity Unexpected or Indeterminate Details Reading Physician Reading Date Result Priority Mitchel Cruz MD [phone] 11/07/2023 Narrative & Impression EXAM US PELVIS TRANS-VAGINAL NON-OB; US PELVIS [id number]-1/20/2024 3:31 pm HISTORY VB; menometrorrhagia x over a year, anemia COMPARISON None. TECHNIQUE Sonographic imaging of the pelvis performed using transabdominal and transvaginal approaches. FINDINGS Transabdominal scan: Urinary bladder: The visualized urinary bladder is within normal limits. Uterus: The uterus is enlarged. Heterogeneous myometrium. Ovaries: Ovaries are better assessed on transvaginal study. No significant free fluid in the pelvis. Transvaginal scan: Uterus: The uterus is enlarged measuring at least 7.7 x 8.8 x 10.5 cm. Heterogeneous myometrium. Multiple fibroids seen. The largest fibroid measures approximately 4.8 x 5.1 x 5.5 cm in lower uterine segment. Endometrial stripe is thickened measuring approximately 31 mm. Heterogeneous appearance of the stripe with tiny cystic foci. There are nabothian cysts. Ovaries: Right ovary measures 2.5 x 2.7 x 3.1 cm. Left ovary measures 2.6 x 2.8 x 3.9 cm. There is a 3 cm cystic structure with a single thin internal septation in the left ovary. Minimal vascularityseen in the septum. No significant free fluid in the pelvis. IMPRESSION IMPRESSION 1. Bulky leiomyomatous uterus. 2. Thickened endometrial stripe. Consider tissue sampling. 3. Left ovarian cyst with single thin septation. Follow-up ultrasound recommended in 6 weeks for reassessment. (In compliance with Act 112, the RODGER was contacted to invoke system generated communication of the patient's results.) Exam Ended: 11/06/23 15:31 Last Resulted: 11/07/23 15:47 Order Details View Encounter Lab and Collection Details Routing Result History View All Conversations on this Encounter Related Results US PELVIS TRANS-ABDOMINAL Final result 11/07/2023 Impression IMPRESSION 1. Bulky leiomyomatous uterus. 2. Thickened endometrial stripe. Consider tissue sampling. 3. Left ovarian cyst with single thin septation. Follow-up ultrasound recommended in 6 weeks for reassessment. (In compliance with Act 112, the RODGER was contacted to invoke system generated communication of the patient's results.) Result Care Coordination Patient Communication Released Seen Back to Top PACS Images Show images for US PELVIS TRANS-VAGINAL NON-OB Related Results US PELVIS TRANS-ABDOMINAL Final result 11/07/2023 Narrative EXAM US PELVIS TRANS-VAGINAL NON-OB; US PELVIS [id number]-8/20/2024 3:31 pm HISTORY VB; menometrorrhagia x over a year, anemia COMPARISON None. TECHNIQUE ... Impression IMPRESSION 1. Bulky leiomyomatous uterus. 2. Thickened endometrial stripe. Consider tissue sampling. 3. Left ovarian cyst with single thin septation. Follow-up ultrasound recommended in 6 weeks for reassessment. (In compliance with Act 112, the RODGER was contacted to invoke system generated communication of the patient's results.) PACS Images - Remote and MAC Users Show Images Signed by Resident (Preliminary Read) Staff Radiologist (Final Read) Date Time Phone Pager MITCHEL CRUZ 11/07/2023 15:47 Read by Resident Staff Radiologist (Final Read) Date Phone Pager MITCHEL CRUZ 11/07/2023 Result History US PELVIS TRANS-VAGINAL NON-OB on 11/07/2023 US PELVIS TRANS-VAGINAL NON-OB: Patient Communication Released Seen Order Providers Authorizing Provider Encounter Provider ([id number]) Oliva Escalante DO ([id number]) [facility] Status of Other Orders View Status of Other Orders Case Tracking Events No case tracking events available Anesthesia Staff None Staff None Visitors None Order Report Order Details IR Timeline View IR Timeline Tracking Links Study Type:US PELVIS TRANS-VAGINAL NON-OB Date of Study: 11/06/2023 Please respond to this encounter to acknowledge receipt of this message and take responsibility to ensure this report is reviewed. Thank you, MADDY Barney Client Service Rep Diagnostic Medicine [place] documented in this encounter Plan of Treatment Upcoming Encounters Date Type Department Care Team (Late st Contact Info) Description 11/17/2023 4:00 PM EDT Office Visit Neurology [facility] [address] [place] [address] Tarah Ramos PA-C [address] [place] [address] 12/01/2023 3:40 PM EDT Office Visit Family Practice [facility] [place] [address] [facility] [place] [address] Oliva Escalante DO [address] [facility] [address] [place] [address] 12/15/2023 10:40 AM EDT Office Visit Neurology [facility] [place] [address] [facility] [address] [place] [address] John Mcelroy DO [address] [facility] [place] [address] Scheduled Orders Name Type Priority Associated Diagnoses Orde r Schedule FERRITIN Lab Routine Anemia, unspecified type Expected: 11/10/2023 (Approximate), Expires: 11/09/2024 HGB Lab Routine Anemia, unspecified type Expected: 11/10/2023 (Approximate), Expires: 11/09/2024 IRON SCREEN, INCLUDING TIBC Lab Routine Anemia, unspecified type Expected: 11/10/2023 (Approximate), Expires: 11/09/2024 TSH WITH FREE T4 IF INDICATED Lab Routine Anemia, unspecified type Expected: 11/10/2023, Expires: 11/09/2024 PROLACTIN Lab Routine Anemia, unspecified type Expected: 11/10/2023, Expires: 11/09/2024 CBC WITH WBC DIFFERENTIAL AND ANEMIA REFLEX WORKUP Lab Routine Anemia, unspecified type Expected: 11/10/2023, Expires: 11/09/2024 Scheduled Referrals Name Type Priority Associated Diagnoses Orde r Schedule CREDIT UNION MANAGER REFERRAL OP Referral Within 30 days (routine) Anemia, unspecified type Ordered: 11/10/2023 Health Maintenance Due Date Last Done Comments Hepatitis B Vaccine (1 of 3 - 19+ 3-dose series) 1994 Colonoscopy 10/31/2019 Fecal Occult Blood Test 10/31/2019 Sigmoidoscopy 10/31/2019 Depression Screening 01/29/2021 01/30/2020 COVID-19 Vaccine ( season) 2023 01/15/2022, 01/27/2021, 06/22/2020, Additional history exists Influenza Vaccine (FLU shot) (#1) 2023 11/27/2022, 01/15/2022, 12/01/2020, Additional history exists Mammogram 12/17/2023 12/16/2022, 03/20, 04/05/2021, Additional history exists Cologuard 05/07/2024 05/07/2021, 04/16, 05/02/2021 Colorectal Cancer Screening 05/07/2024 Diabetes Screening 10/26/2026 10/27/2023, 1 04/16/2019, 07/06/2018, Additional history exists Lipid Panel 10/26/2028 10/27/2023, 06/17, 02/22/2016 DTap/Tdap Vaccines (4 - Td or Tdap) 04/19/2031 04/18/2021, 06/06/2011, 01/25/2009 HIV Screening Discontinued HPV (Gardasil) Vaccine Aged [...] as of this encounter Visit Diagnoses Diagnosis Anemia, unspecified type- Primary documented in this encounter Care Teams Erecting Crane Operator Relationship Specialty Start Date End Date Oliva Escalante DO [address] [place] [address] PCP - General Family Medicine 05/05/11 documented as of this encounter
--- OUTSIDE RECORDS SUMMARY | 2024-03-26 09:04 | External Medical Summary | Summary of Care ---
Author Name Unknown Organization [facility] Address [address] [place] [address] Phone [phone] Care Team Providers Care Cuff Stitcher Name Role Phone Deann Escalante Primary Care Provider Reason for Visit * Reason Comments Outpatient Testing Encounter Details Date Type Department Care Team (Late st Contact Info) Description 11/17/2023 2:20 PM EDT Laboratory Laboratory, [place] [address] [place] [address] [facility] [address] [place] [address] Screening for lipoid disorders; Menorrhagia with regular cycle; Migraine variant, intractable; Anemia, unspecified type Allergies Active Allergy Reactions Criticality Noted Date Comments Dust 02/20/2017 Other Allergy (See Comments) 018 Animal dander Pollen 02/20/2017 documented as of this encounter (statuses as of 11/17/2023) Medications Medication Sig Dispensed Refills Start Date End Date Status RODOLFO 180 MG PO TABS one tablet daily 30 Tab 6 10/29/2011 Active ketotifen fumarate (ZADITOR) 0.025 % ophthalmic solution Instill 1 Drop into both eyes 2 times a day as needed for Allergies. 5 mL 0 05/15/2015 Active Ajovy 225 MG/1.5ML Subcutaneous Solution Prefilled Syringe (Fremanezumab-vfrm) INJECT 1.5 ML UNDER THE SKIN EVERY [...] as of this encounter (statuses as of 11/17/2023) Active Problems Problem Noted Date Diagnosed Date Bunion of great toe of left foot 02/24/2017 Other chronic allergic conjunctivitis 06/24/2011 Allergic rhinitis 06/24/2011 Atopic dermatitis 06/24/2011 Migraine 05/27/2011 documented as of this encounter (statuses as of 11/17/2023) Immunizations Name Administration Dates Next Due COVID-19 [...] Influenza, Quadriva lent, No Preserve, IM 03/10/2016 TD - Tetanus/Diptheria (ADULT) 06/06/2011 TDAP (age [...] on file documented as of this encounter Plan of Treatment Upcoming Encounters Date Type Department Care Team (Late st Contact Info) Description 11/17/2023 4:00 PM EDT Office Visit [facility] [place] [address] [place] [address] Tarah aRmos PA-C [address] [place] [address] 12/01/2023 3:40 PM EDT Office Visit Family Practice [facility] [place] [address] [place] [address] Deann Escalante, [address] [place] [address] 12/15/2023 10:40 AM EDT [facility] [address] [place] [address] John Mcelroy, DO [address] [place] [address] 12/18/2023 2:45 PM EDT Imaging Radiology [facility] [address] [facility] [place] [address] Pending Results Name Type Priority Associated Diagnoses Date /Time LIPID PANEL WITH DIRECT LDL IF TG IS HIGH Lab Routine Screening for lipoid disorders 11/17/2023 2:17 PM EDT BASIC METABOLIC PANEL Lab Routine Migraine variant, intractable 11/17/2023 2:17 PM EDT FERRITIN Lab Routine Anemia, unspecified type 11/17/2023 2:17 PM EDT IRON SCREEN, INCLUDING TIBC Lab Routine Anemia, unspecified type 11/17/2023 2:17 PM EDT TSH WITH FREE T4 IF INDICATED Lab Routine Anemia, unspecified type 11/17/2023 2:17 PM EDT PROLACTIN Lab Routine Anemia, unspecified type 11/17/2023 2:17 PM EDT CBC WITH WBC DIFFERENTIAL AND ANEMIA REFLEX WORKUP Lab Routine Anemia, unspecified type 11/17/2023 2:17 PM EDT ANEMIA CBC Lab Routine Anemia, unspecified type 11/17/2023 2:17 PM EDT DIFFERENTIAL, AUTOMATED Lab Routine Anemia, unspecified type 11/17/2023 2:17 PM EDT ANEMIA REFLEX CHEMISTRY HOLD Lab Routine Anemia, unspecified type 11/17/2023 2:17 PM EDT Health Maintenance Due Date Last [...] as of this encounter Visit Diagnoses Diagnosis Screening for lipoid disorders Menorrhagia with regular cycle Excessive or frequent menstruation Migraine variant, intractable Variants of migraine, not elsewhere classified, with intractable migraine, so stated, without mention of status migrainosus Anemia, unspecified type documented in this encounter Care Teams Cuff Stitcher Relationship Specialty Start Date End Date Deann Escalante DO [address] [place] [address] PCP - General Family Medicine 05/05/11 documented as of this encounter
--- OUTSIDE RECORDS SUMMARY | 2024-03-26 09:04 | External Medical Summary | Summary of Care ---
Author Name Unknown Organization [facility] Address [address] [place] [address] Phone [phone] Care Team Providers Care Multi Mission Helicopter Aircrewman Name Role Phone Boris Zacariasquiqeu Mascorro Primary Care Provider Reason for Visit * Reason Onset Date Comments Return Neuro Migraine Headache Medication Administration 11/17/2023 Flu an d/or Pneumo Inj Encounter Details Date Type Department Care Team (Late st Contact Info) Description 11/17/2023 4:00 PM EDT Office Visit Neurology [facility] [address] [facility] [place] [address] Tarah Ramos PA-C [address] [facility] [place] [address] Need for prophylactic vaccination and inoculation against influenza*; Intractable chronic migraine without aura and without status migrainosus; Migraine without aura and without status migrainosus, not intractable; White matter abnormality on MRI of brain Allergies Active Allergy Reactions Criticality Noted Date [...] the morning. 30 Tablet 2 11/17/2023 Active Ajovy 225 MG/1.5ML Subcutaneous Solution Prefilled Syringe (Fremanezumab-[facility] ) INJECT 1.5 ML UNDER THE SKIN EVERY MONTH. 1.5 mL 5 09/05/2022 4 Discontinued Gabapentin 100 MG Oral Capsule (Neurontin) 1 tab at onset of migraine with tylenol or motrin may repeat in 1 hour. 30 Capsule 2 10/16/2022 4 Discontinued documented as of this encounter (statuses [...] 11/17/2022 Does the household have a re lar [...] Sign Reading Time Taken Comments Blood Pressure 108/68 11/17/2023 3:53 PM EDT Pulse 69 11/17/2023 3:53 PM EDT Temperature 35.5 C (95.9 F) 11/17/2023 3:53 PM ED T Respiratory Rate 16 11/17/2023 3:53 PM EDT Oxygen Saturation 78% 11/17/2023 3:53 PM EDT Inhaled Oxygen Concentration - - Weight 94.8 kg (208 lb 14.4 oz) 11/17/2023 3:53 PM EDT Height - - Body Mass Index 33.72 11/27/2022 7:15 AM EDT documented in this encounter Patient Instructions * Patient Instructions* Ximena Olivares MED ASSIST - 11/17/2023 3:56 PM EDT ~~PATIENT INSTRUCTIONS FOR FLU SHOT~~ Possible side effects of influenza vaccine, (flu shot), are usually mild and include: 1. Soreness or redness at injection site 2. Low grade fever 3. Body aches You may use Tylenol/Acetaminophen as needed for these symptoms. LET YOUR DOCTOR KNOW IMMEDIATELY IF YOU HAVE DIFFICULTY BREATHING OR SWALLOWING, EXPERIENCE ITCHINGOF FEET OR HANDS, HAVE SWELLING OF EYES, FACE OR INSIDE OF NOSE. documented in this encounter Progress Notes * Ximena Olivares MED ASSIST - 11/17/2023 3:56 PM EDT PRE - ADMINISTRATION DOCUMENTATION Are you experiencing any cold symptoms or fever? No Have you had Guillain-[place] Syndrome (an illness that causes paralysis) within the last 6 weeks? No Have you had the flu shot in the past? YES Have you ever had a reaction to the flu shot? No ALECIA Bray, 11/17/2023 3:56 PM Immunization Administration Documentation Time Out Procedure Performed: Yes Patient Identified (Ask Name/Date of ): Yes Does the patient have a fever greater than 101 degrees today? No Patient allergic to latex? No C Stock: No Immunization(s) verified: Yes, Immunization Name: Flu, VIS Sheet(s) given: Yes Verified Side and Site: Yes Verified Shot(s) with Parent(s)/Patient: Yes * Tarah Ramos PA-C - 11/17/2023 3:54 PM EDT HISTORY & PHYSICAL EXAMINATION - NEUROLOGY Name: Cici Hebert Date: 11/17/2023 Time: 3:54 PM Referring Provider: Tarah Ramos, * Chief Complaint: Chief Complaint Patient presents with Return Neuro Migraine Headache This is a 48 year old right handed woman returns today for follow up for migraine headaches. HPI & Source of HPI The patient was the historian, and she is reliable. Her migraines started when she was in high school. She has been tried on amitriptyline, topamax andBB. 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 They can last for hours or days and there is no aura. She does have some nausea but no vomiting. She has her vision checked yearly. She is a non smoker, no EtOH use, no other drugs, no caffeine (cut down and quit recently.) Her MRI showed demyelinating lesionwhich were likely MS. She has no symptoms and had ordered a repeat in 6 months but a letter from her insurance company told her the MRI would be 7,000 dollars and does not want to have it done at this point. Her insurance changed at [employer] and she was without her ajovy and decided not to restart it. She is having no other symptoms other than her migraines. The migraines are back up to 10 per month rizatriptans. She is still on riboflavin and mg ox. She can then go months without a migraine. She is currently over using the rizatriptan. She had botox but it has not helped she is getting at least 15 migraine per month maybe more. She would like to try something else. Denies CP ,SOB, abdominal pain, Lhermitte sign, pain with movement of eyes, vision changes, N, V. I have reviewed the patient's medications and allergies, past medical, surgical, social and family history, updating these as appropriate. See Histories section of the electronic medical record for adisplay of this information. Patient Active Problem List Diagnosis Migraine Other chronic allergic conjunctivitis Allergic rhinitis Atopic dermatitis Bunion of great toe of left foot Family History Problem Relation Name Age of Onset Neurological Disorder Grandfather (Maternal) Neena Gerig's disease Thyroid Disorder None Hypertension None Heart Disorder None Diabetes None Cancer None Breast Cancer None Stroke Grandmother (Maternal) Allergies Father allergic rhinitis Asthma Father Medications: Are you taking your medications? yes Current Outpatient Medications Medication Sig Dispense Refill RODOLFO 180 MG PO TABS one tablet daily 30 Tab 6 ketotifen fumarate (ZADITOR) 0.025 % ophthalmic solution Instill 1 Drop into both eyes 2 times a day as needed for Allergies. 5 mL 0 Riboflavin 400 MG Oral Tablet Take 1 Tablet by mouth in the morning. 30 Tablet 2 Triamcinolone Acetonide 0.5 % External Cream (Aristocort) Apply topically to affected area 2 times a day. To affected area. 60 g 5 Betamethasone Dipropionate 0.05 % External Cream (Diprosone) [...] 3 TABETS PER DAY 20 Tablet 3 Ajovy 225 MG/1.5ML Subcutaneous Solution Prefilled Syringe (Fremanezumab-vfrm) INJECT 1.5 ML UNDER THE SKIN EVERY MONTH. 1.5 mL 5 Gabapentin 100 MG Oral Capsule (Neurontin) 1 tab at onset of migraine with tylenol or motrin may repeat in 1 hour. 30 Capsule 2 No current facility-administered medications for this visit. Review of patient's allergies indicates: Allergen Reactions Dust Other Allergy (See Comments) Animal dander Pollen Review of Systems: A total number of 10 systems were reviewed pertinent negative and positives not addressed in HPI are listed in the following review. Physical Exam: Constitutional: BP 108/68 | Pulse 69 | Temp 35.5 C (95.9 F) (Tympanic) | Resp 16 | Wt 94.8 kg (208 lb 14.4 oz) | SpO2 78% | BMI 33.72 kg/m | BSA 2.1 m , appearance over nourished and healthy Ears, Nose, Mouth and Throat: mucous membranes moist, no injection and skin normal, eyes normal Cardiovascular: normal S-1 and S-2 and regular rate and rhythm Respiratory: clear to auscultation (CTA) and no rales, ronchi or wheeze Musculoskeletal: no peripheral edema Skin: normal and intact Eyes: extraocular muscles intact (EOMI) NEUROLOGIC EXAMINATION: Mental status: Alert and interactive Oriented to full date and location Oriented to person Speech fluent with no evidence of aphasia Cranial Nerves Normal findings for Cranial Nerves II - XII Coordination: rapid alternating movements are intact: Bilateral, on ywyvyj-im-jxsd, and no abnormal or extraneousmovements Gait/Stance: Posture normal. Gait normal: with steady with steps, base, arm swing, and tandem gait. Motor: Negative for pronator drift of out stretched arms with eyes closed. Strength: Normal - 5/5 all extremities LABORATORY: Recent labs reviewed Review of prior Studies: No recent imaging available. Impression: Cici Hebert is a 48 year old woman with a history of migraine headaches. Her neurologic examination today reveals no new focal deficit. The history and examination are suggestive of diagnosis/problem list. Testing and Referrals ordered: none ICD-10-CM 1. Need for prophylactic vaccination and inoculation against influenza Z23 2. Intractable chronic migraine without aura and without status migrainosus G43.719 3. Migraine without aura and without status migrainosus, not intractable G43.009 4. White matter abnormality on MRI of brain R90.82 Return in 6 months or sooner if needed Continue botox q 3 months may take several treatments to be effective Start Qulipta 60 mg (1 tab) daily Keep well hydrated PCP for medical management Advised using too much rizatriptan Limit caffeine intake Call with questions concerns Medical Decision Making (determined by lowest of 2 of 3 elements): The medical decision making element of the number and complexity of problems addressed included at least 1 or more chronic illnesses with exacerbation, progression, or side effects of treatment (level 4). The medical decision making element of risk of complications, morbidity, and mortality of patient management is moderate (level 4) due to prescription drug management (moderate risk). The medical decision making element of the amount and complexity of data reviewed and analyzed included an independent interpretation of a test (level 4 at least). When 2 of 3 reach level 4, then this element is considered extensive (level 5). I personally spent a total of 30 minutes. This time was for a new office or established visit and was on the same calendar day. and This time was the total spent on the evaluation, interpretation, and documentation. Education / Consultation - Topics covered as I spent 20 minutes, which is greater than 50% of this visit, counseling the patient on: Diagnostic Results Prognosis Importance of compliance with chosen treatment options Risk factor reductions Patient and family education Consulted with physician: John Mcelroy DO was available for direct supervision. Copy of note sent to PCP and Referring Provider. Total time of visit: 30 minutes. Tarah Ramos PA-C Neurology [facility] [place] [address] [place] [address] 11/17/2023 3:54 PM documented in this encounter Nursing Notes * Ximena Olivares MED ASSIST - 11/17/2023 3:51 PM EDT Chief Complaint Patient presents with Return Neuro Migraine Headache documented in this encounter Plan of Treatment Upcoming Encounters Date Type Department Care Team (Late st Contact Info) Description 11/27/2023 8:00 AM EDT Office Visit Gynecology/Obstetrics [facility] [address] [place] [address] Connor Adams MD [address] [place] [address] 12/01/2023 3:40 PM EDT Office Visit Family Practice [facility] [place] [address] [place] [address] Deann Escalante DO [address] [place] [address] 12/15/2023 10:40 AM EDT Office Visit Neurology [facility] [place] [address] [place] [address] [address] John Mcelroy, [address] [facility] [place] [address] 12/18/2023 2:45 PM EDT Imaging Radiology [facility] [address] [facility] [place] [address] [place] [address] 05/27/2024 3:40 PM EDT Office Visit Neurology [facility] [address] [facility] [place] [address] Tarah Kerr MD [address] [facility] [place] [address] Health Maintenance Due Date Last Done Comments [...] as of this encounter Visit Diagnoses Diagnosis Need for prophylactic vaccination and inoculation against influenza- Primary Intractable chronic migraine without aura and without status migrainosus Chronic migraine without aura, with intractable migraine, so stated, without mention of status migrainosus Migraine without aura and without status migrainosus, not intractable Migraine without aura, without mention of intractable migraine without mention of status migrainosus White matter abnormality on MRI of brain Nonspecific (abnormal) findings on radiological and other examination of skull and head documented in this encounter Care Teams Multi Mission Helicopter Aircrewman Relationship Specialty Start Date End Date Deann Escalante DO [facility] [place] [address] PCP - General Family Medicine 05/05/11 documented as of this encounter"
--- OUTSIDE RECORDS SUMMARY | 2024-03-26 09:04 | External Medical Summary ---
Author Name Unknown Address Unknown Organization K01:[facility] [place] [address] [facility] [place] [address] Laboratory Report Ordering Provider Test Date Status PEBBLES BAPTISTE 11/17/2023 14:17:19 Final Observation Date Value Abnormality Reference (Units ) Status TSH 11/17/2023 14:17:19 2.22 0.27-4.20 (uIU/mL) Final Performing Location [facility] [place] [address] [place] [address]
--- OUTSIDE RECORDS SUMMARY | 2024-03-26 09:04 | External Medical Summary | Summary of Care ---
Author Name Unknown Organization [facility] Address [address] [place] [address] Phone [phone] Care Team Providers Care Wedding Day Coordinator Name Role Phone Deann Escalante DO Primary Care Provider Reason for Visit * Reason Onset Date Comments Test Results 11/08/2023 Unexpected or In determinate Result Encounter Details Date Type Department Care Team (Late st Contact Info) Description 11/08/2023 Telephone Laboratory, [place] [address] [place] [address] Deann Escalante DO [address] [place] [address] Test Results (Unexpected or Indeterminate ... Allergies Active Allergy Reactions Criticality Noted Date Comments Dust 02/20/2017 Other Allergy (See Comments) 018 Animal dander Pollen 02/20/2017 documented as of this encounter (statuses as of 11/08/2023) Medications Medication Sig Dispensed Refills Start Date [...] as of this encounter (statuses as of 11/08/2023) Active Problems Problem Noted Date Diagnosed Date Bunion of great toe of left foot 02/24/2017 Other chronic allergic conjunctivitis 06/24/2011 Allergic rhinitis 06/24/2011 Atopic dermatitis 06/24/2011 Migraine 05/27/2011 documented as of this encounter (statuses as of 11/08/2023) Immunizations Name Administration Dates Next Due COVID-19 [...] encounter Miscellaneous Notes * Telephone Encounter - Vandana Aly, MADDY - 11/08/2023 1:55 AM EDT Images from the original note were not included. Hello- The radiologist discovered an unexpected or indeterminate finding on Alexey Hebert ([id number]) and asks that you review the following report. Exam End Date Exam End Time 11/06/2023 3:31 PM US PELVIS TRANS-VAGINAL NON-OB Order: [id number] Status: Final result Visible to patient: Yes (seen) Next appt: 11/17/2023 at 04:00 PM in *Neuro* (Tarah Ramos PA-C) Dx: Menometrorrhagia 0 Result Notes Findings Acuity Unexpected or Indeterminate Details Reading Physician Reading Date Result Priority Mitchel Cruz MD [phone] 11/07/2023 Narrative & Impression EXAM US PELVIS TRANS-VAGINAL NON-OB; US PELVIS [id number]-8/20/2024 3:31 pm HISTORY VB; menometrorrhagia x over [...] x 5.1 x 5.5 cm in lower uterinesegment. Endometrial stripe is thickened measuring approximately 31 [...] EXAM US PELVIS TRANS-VAGINAL NON-OB; US PELVIS [id number]-1/20/2024 3:31 pm HISTORY VB; menometrorrhagia x over [...] Seen Order Providers Authorizing Provider Encounter Provider ([id number]) Deann Escalante DO ([id number]) US4 SANGITA OLIVAREZ Status of Other Orders View Status of [...] MADDY Barney Client Service Rep Diagnostic Medicine [place] documented in this encounter Plan of Treatment Upcoming Encounters Date Type Department Care Team (Late st Contact Info) Description 11/17/2023 4:00 PM EDT Office Visit Neurology [facility] [place] [address] [facility] [place] [address] Tarah Ramos PA-C [address] [facility] [place] [address] 12/01/2023 3:40 PM EDT Office Visit Family Practice [facility] [address] [facility] [place], [place] [address] Deann Escalante, DO [address] [facility] [place] [address] 12/15/2023 10:40 AM EDT Office Visit Neurology [facility] [place] [address] [facility] [place] [address] John Mcelroy, DO [address] [facility] [place] [address] Health Maintenance Due Date Last Done Comments [...] filedocumented as of this encounter Care Teams Wedding Day Coordinator Relationship Specialty Start Date End Date Deann Escalante DO [address] [place] [address] PCP - General Family Medicine 05/05/11 documented as of this encounter
--- OUTSIDE RECORDS SUMMARY | 2024-03-26 09:04 | External Medical Summary | Summary of Care ---
Author Name Unknown Organization [facility] Address [address] [place] [address] Phone [phone] Care Team Providers Care Freelance Photographer Name Role Phone Boris Zacariasquique Mascorro Primary Care Provider Encounter Details Date Type Department Care Team (Late st Contact Info) Description 11/13/2023 Orders Only PATIENT PORTAL DO NOT DELETE THIS DEPT USED BY [place] [id number] Allergies Active Allergy Reactions Criticality Noted Date Comments Dust 02/20/2017 Other Allergy (See Comments) 018 Animal dander Pollen 02/20/2017 documented as of this encounter (statuses as of 11/13/2023) Medications Medication Sig Dispensed Refills Start Date [...] as of this encounter (statuses as of 11/13/2023) Active Problems Problem Noted Date Diagnosed Date Bunion of great toe of left foot 02/24/2017 Other chronic allergic conjunctivitis 06/24/2011 Allergic rhinitis 06/24/2011 Atopic dermatitis 06/24/2011 Migraine 05/27/2011 documented as of this encounter (statuses as of 11/13/2023) Immunizations Name Administration Dates Next Due COVID-19 mRNA, LNP-s, No Pre serve, 2-Dose Series (Moderna) 01/27/2021,06/22/2020,05/25/2020 Covid-19, Mrna, Lnp-s, Pf, Bivalent, 30 Mcg, IM, 12 yrs and above (LEAFER) 01/15/2022 H1N1 2009 Influenza, IM 01/25/2009 PPD [...] Care Team (Late st Contact Info) Description 11/13/2023 4:45 PM EDT Office Visit Gynecology/Obstetrics [facility] [address] [place] [address] Monisha Broderick PA-C [address] [place] [address] 11/17/2023 4:00 PM EDT Office Visit Neurology [facility] [address] [place] [address] Tarah Ramos PA-C [address] [place] [address] 12/01/2023 3:40 PM EDT Office Visit [facility] [address] [place] [address] Deann Escalante DO [address] [place] [address] 12/15/2023 10:40 AM EDT Office Visit Neurology [facility] [address] [facility] [place] [address] John Mcelroy DO [address] [place] [address] Health Maintenance Due Date Last Done Comments [...] filedocumented as of this encounter Care Teams Freelance Photographer Relationship Specialty Start Date End Date Deann Escalante DO [address] [place] [address] PCP - General Family Medicine 05/05/11 documented as of this encounter
--- OUTSIDE RECORDS SUMMARY | 2024-03-26 09:04 | External Medical Summary | Summary of Care ---
Author Name Unknown Organization [facility] Address [address] [place] [address] Phone [phone] Care Team Providers Care Structural Engineer Name Role Phone Oliva Escalante DO Primary Care Provider Reason for Referral * Evaluate & Treat - Unlimited Visits (Within 30 days (routine)) - Authorized Specialty Diagnoses / Procedures Referred By Tre ryan Referred To Contact Obstetrics/Gynecology / Gynecology Obstetrics Diagnoses Anemia, unspecified type Oliva Escalante DO [address] [place] [address] Referral ID Status Reason Start Date Expiration Date Visits Requested Visits Authorized [id number] Authorized Specialty Services Required 11/10/2023 999 999 [...] st Contact Info) Description 11/08/2023 Telephone Laboratory, [place] [address] [place] [address] Oliva Escalante DO [address] [place] [address] Test Results (Unexpected or Indeterminate ... Allergies [...] Ajovy 225 MG/1.5ML Subcutaneous Solution Prefilled Syringe (Fremanezumab-[facility]) INJECT 1.5 ML UNDER THE SKIN [...] encounter Miscellaneous Notes * Telephone Encounter - Oliva Escalante, - 11/10/2023 5:05 PM EDT Please schedule RAILS DEVELOPER soon- for endometrial biopsy Please attach lab orders in message for pt to go to [facility] * Addendum Note - Oliva Escalante, - 11/10/2023 5:04 PM EDTAddended by: OLIVA ESCALANTE on: 11/10/2023 05:04 PM Modules accepted: Orders * Telephone Encounter - Stanley Mcgraw Vandana Manning, MADDY - 11/08/2023 1:55 AM EDT Images from the original note were not included. Hello- The radiologist discovered an unexpected or indeterminate finding on Cici Hebert ([id number]) and asks that you review the following report. Exam End Date Exam End Time 11/06/2023 3:31 PM US PELVIS TRANS-VAGINAL NON-OB Order: [id number] Status: Final result Visible to patient: Yes (seen) Next appt: 11/17/2023 at 04:00 PM in *Neuro* (Tarah Ramos PA-C) Dx: Menometrorrhagia 0 Result Notes Findings Acuity Unexpected or Indeterminate Details Reading Physician Reading Date Result Priority Mitchel Cruz MD [phone] 11/07/2023 Narrative & Impression EXAM US PELVIS TRANS-VAGINAL NON-OB; US PELVIS [id number]-6/20/2024 3:31 pm HISTORY VB; menometrorrhagia x over [...] EXAM US PELVIS TRANS-VAGINAL NON-OB; US PELVIS [id number]-8/20/2024 3:31 pm HISTORY VB; menometrorrhagia x over [...] Radiologist (Final Read) Date Time Phone Pager KARUNAMITCHEL SANTIAGO RAMON 11/07/2023 15:47 Read by Resident Staff Radiologist (Final Read) Date Phone Pager MITCHEL CRUZ RAMON 11/07/2023 Result History US PELVIS TRANS-VAGINAL NON-OB on 11/07/2023 US PELVIS TRANS-VAGINAL NON-OB: Patient Communication Released Seen Order Providers Authorizing Provider Encounter Provider ([id number]) Oliva Escalante DO ([id number]) US4 SANGITA OLIVAREZ Status of Other Orders [...] MADDY Barney Client Service Rep Diagnostic Medicine [facility] documented in this encounter Plan of Treatment Upcoming Encounters Date Type Department Care Team (Late st Contact Info) Description 11/17/2023 4:00 PM EDT Office Visit Neurology [facility] [address] [facility] [place] [address] Tarah Ramos PA-C [address] [facility] [place] [address] 12/01/2023 3:40 PM EDT Office Visit Family Practice [facility] [address] [facility] [place] [address] Oliva Escalante, [address] [facility] [place] [address] 12/15/2023 10:40 AM EDT Office Visit Neurology [facility] [address] [facility] [place] [address] John Mcelroy, DO [address] [facility] [place] [address] Scheduled Orders Name Type Priority Associated Diagnoses [...] Type Priority Associated Diagnoses Orde r Schedule RAILS DEVELOPER REFERRAL OP Referral Within 30 days (routine) [...] 12/01/2020, Additional history exists Mammogram 12/17/2023 12/16/2022, /02/2021, 04/05/2021, Additional history [...] Primary documented in this encounter Care Teams Structural Engineer Relationship Specialty Start Date End Date Oliva Escalante DO [address] [place] [address] PCP - General Family Medicine 05/05/11 documented as of this encounter
--- OUTSIDE RECORDS SUMMARY | 2024-03-26 09:04 | External Medical Summary | Summary of Care ---
Author Name Unknown Organization [facility] Address [address] [place] [address] Phone [phone] Care Team Providers Care Utility Aide Name Role Phone Deann Escalante DO Primary Care Provider Reason for Visit * Reason Comments NEW PATIENT * Evaluate & Treat - Unlimited Visits (Within 30 days (routine)) - Authorized Specialty Diagnoses / Procedures Referred By Tre ryan Referred To Contact Obstetrics/Gynecology / Gynecology Obstetrics Diagnoses Anemia, unspecified type Deann Escalante DO [address] [place] [address] Referral ID Status Reason Start Date Expiration Date Visits Requested Visits Authorized [id number] Authorized Specialty Services Required 11/10/[phone] Encounter Details Date Type Department Care Team (Late st Contact Info) Description 11/13/2023 4:45 PM EDT Office Visit Gynecology/Obstetric s Maddie Barrientos [address] [facility] [place] [address] Monisha Broderick PA-C [address] [place] [address] Thickened endometrium*; Abnormal uterine bleeding; Cervical polyp; Left ovarian cyst Allergies Active Allergy Reactions Criticality Noted Date Comments Dust 02/20/2017 Other Allergy (See Comments) 018 Animal dander Pollen 02/20/2017 documented as of this encounter (statuses as of 11/16/2023) Medications Medication Sig Dispensed Refills Start Date [...] as of this encounter (statuses as of 11/16/2023) Active Problems Problem Noted Date Diagnosed Date Bunion of great toe of left foot 02/24/2017 Other chronic allergic conjunctivitis 06/24/2011 Allergic rhinitis 06/24/2011 Atopic dermatitis 06/24/2011 Migraine 05/27/2011 documented as of this encounter (statuses as of 11/16/2023) Immunizations Name Administration Dates Next Due COVID-19 [...] Reading Time Taken Comments Blood Pressure 112/64 11/13/2023 4:24 PM EDT Pulse - - Temperature - - Respiratory Rate - - Oxygen Saturation - - Inhaled Oxygen Concentration - - Weight 94.8 kg (209 lb) 11/13/2023 4:24 PM EDT Height - - Body Mass Index 33.73 11/27/2022 7:15 AM EDT documented in this encounter Progress Notes * Monisha Broderick PA-C - 11/16/2023 7:39 AM EDT Chief Complaint: Patient is here today for endometrial biopsy and cervical polyp removal. History of Present Illness: Patient is a here for endometrial biopsy and cervical polyp removal. testing negative. Has never been sexually active. Patient counseled on need for emb and cervical polyp, risks and benefits explained to patient Written consent obtained. A ''time out'' was initiated by Monisha Broderick PA-C prior to procedure. The patient was identified by name and date of . The correct procedure, and correct site identified. Correct positioning (as applicable). There is availability of necessary equipment. Denies allergy to latex, betadine, or shellfish. Denies taking any blood thinners and denies need for SBE prophylaxis. Patient denied any allergy to betadine A sterile speculum was inserted into the vagina and the cervix visualized. Cervix noted to have polyp at endocervix approx 1 cm. Pap collected then removed with several rotations of ringed forceps. The cervix was then cleansed with betadine x 3 Tenaculum placed on anterior lip of cervix The uterus sounded to 11 cm Emb performed with 1 pass, appearance of endometrial tissues in [place]. Tenaculum removed site made hemostatic with silver nitrate to right tenaculum site. Patient tolerated procedure well Plan: Thickened endometrium (Primary) - SURGICAL PATHOLOGY Abnormal uterine bleeding - SURGICAL PATHOLOGY - URINE SCREEN, POINT OF CARE (ENTER/EDIT) Cervical polyp - EPIC RADIANT ANALYST PAP DIAGNOSTIC; Future; Expected date: 11/13/2023 - SURGICAL PATHOLOGY - EPIC RADIANT ANALYST PAP DIAGNOSTIC - HUMAN PAPILLOMA VIRUS, PROBE Advised patient to call the office if she has fever, chills, lower abdominal pain, unusual vaginal bleeding, or any other unusual symptoms. Advised pelvic rest x 7 days. Not currently sexually active. RTO if symptoms worsen or fail to improve. Monisha Broderick PA-C * Monisha Broderick PA-C - 11/16/2023 7:23 AM EDT SUBJECTIVE: Chief Complaint Patient presents with NEW PATIENT HPI: 48 year old female referred here by Deann Escalante DO for thickened endometrium on recent pelvic ultrasound. Patient presents today for EMB as directed by referring physician. Patient reports long standing history of HMB for about 1 year. Periods regular with normal length (7 days or less). Starting in June 2023 irregular menstrual bleeding. Period that did not want to stop. Bleeding has since started and stopped. However, remains unpredictable and irregular. Has period today -- states flow moderate. PCP is also following her for anemia. Has upcoming labs to complete. Last lab 10/27/2023 Hgb 9.7. PCP ordered pelvic ultrasound. Completed 11/06/2023 that showed fibroid uterus. Largest 5.5 cm in lower uterine segment. Left ovarian cyst for which 6 week follow up recommended. Thickened endometriumat 31 mm. Patient has never been sexually active. Last pap several years ago per patient. She states told likely doesn't need anymore given sexual history. She has never had abnormal pap smear. Medications: Current Outpatient Medications Medication Sig Dispense Refill [...] 1.5 ML UNDER THE SKIN EVERY MONTH. (Patient not taking: Reported on 05/12/2023) 1.5 mL 5 Gabapentin 100 MG Oral Capsule (Neurontin) 1 tab at onset of migraine with tylenol or motrin may repeat in 1 hour. (Patient not taking: Reported on 05/12/2023) 30 Capsule 2 Triamcinolone Acetonide 0.5 % External Cream (Aristocort) Apply topically to affected area 2 times a day. To affected area. (Patient not taking: Reported on 05/12/2023) 60 g 5 No current facility-administered medications for this visit. Allergies: Review of patient's allergies indicates: Allergen Reactions Dust Other Allergy (See Comments) Animal dander Pollen Patient Active Problem List Diagnosis Migraine Other chronic allergic conjunctivitis Allergic rhinitis Atopic dermatitis Bunion of great toe of left foot Past Medical History: Diagnosis Date Asthma chilldhood and teenage years only Environmental allergies Migraine OB History Para Term AB Living 0 0 SAB IAB Ectopic Multiple Live Births Past Surgical History: Procedure Laterality Date DENTAL SURGERY PROCEDURE NEC 1992 Family History Problem Relation Name Age of Onset Neurological Disorder Grandfather (Maternal) Neena Gerig's disease Thyroid Disorder None Hypertension None Heart Disorder None Diabetes None Cancer None Breast Cancer None Stroke Grandmother (Maternal) Allergies Father allergic rhinitis Asthma Father Review of Systems: CONSTITUTIONAL ROS: No change in weight, No fevers, sweats, or chills CARDIOVASCULAR ROS: No chest pain, No shortness of breath GASTROINTESTINAL ROS: No abdominal pain, No change in bowel habits, No nausea, vomiting, diarrhea, or constipation. GENITO-URINARY FEMALE ROS: See HPI. No STDs, no dysuria, No urgency and no vaginal discharge MSK/EXTREMITIES ROS: No pain, redness or swelling on the joints OBJECTIVE: BP 112/64 | Wt 94.8 kg (209 lb) | BMI 33.73 kg/m | BSA 2.1 m General: awake, alert, and oriented x 3, normal affect, no acute distress Chest: equal chest rise, no labored breathing External Genitalia/Vulva: anatomy is normal, no significant redness of labia, no discharge on vulvar tissues, ulcers are absent, no condylomatous lesions Vagina: vaginal tissues are not inflamed, normal color and texture, no significant discharge present, blood in vagina Cervix: cervical polyp seen at endocervix approx 1 cm, no cervicitis, no discharge from os, no cervical motion tenderness. Uterus: enlarged, normal shape, mobile, non-tender. Adnexa: no adnexal mass, and non-tender bilaterally General Maintenance Helper Documentation Provider requested radio talk show host. Name of radio talk show host: Muna Sanchez RN Pelvic ultrasound 11/06/2023 FINDINGS Transabdominal scan: Urinary bladder: The visualized [...] system generated communication of the patient's results.) ASSESSMENT/PLAN: Thickened endometrium (Primary) Vaginal bleeding today -- discussed limitations with EMB when bleeding and perhaps may limit endometrial sample if only blood returned. Pt stated understanding and still wished to proceed with biopsy. Reviewed with her this could be d/t benign or abnormal (hyperplasia and malignancy) reasons. EMB collected. See alternative procedure note. Will await pathology. Advised will follow up pending pathology. - SURGICAL PATHOLOGY Abnormal uterine bleeding EMB collected. Has fibroids. Treatment pending path. Hemodynamically stable today. - SURGICAL PATHOLOGY - URINE SCREEN, POINT OF CARE (ENTER/EDIT) Cervical polyp Incidentally seen today on exam -- removed. Path pending. Pap collected. - EPIC RADIANT ANALYST PAP DIAGNOSTIC; Future; Expected date: 11/13/2023 - SURGICAL PATHOLOGY - EPIC RADIANT ANALYST PAP DIAGNOSTIC - HUMAN PAPILLOMA VIRUS, PROBE Left ovarian cyst Reviewed with patient -- asymptomatic. Discussed 6 week follow up ultrasound -- she was agreeable. - US PELVIS TRANS-VAGINAL NON-OB; Future; Expected date: 12/18/2023 RTO if symptoms worsen or fail to improve. Monisha Broderick PA-C documented in this encounter Nursing Notes * Debra David CMA - 11/13/2023 4:24 PM EDT Patient present today for EMB. Ultrasound 11/06/2023 showing endometrial stripe is thickened measuring approximately 31 mm. Has been on and off bleeding since June. Bleeding right now, moderate. Never sexually active. documented in this encounter Plan of Treatment Upcoming Encounters Date Type Department Care Team (Late st Contact Info) Description 11/17/2023 2:20 PM EDT Laboratory Laboratory, [place] [address] [place] [address] [facility] [address] [place] [address] 11/17/2023 4:00 PM EDT Office Visit Neurology [facility] [place] [address] [place] [address] Tarah Ramos PA-C [address] [facility] [place] [address] 12/01/2023 3:40 PM EDT Office Visit Family Practice [facility] [address] [place] [address] [address] Deann Escalante DO [address] [place] [place] [address] 12/15/2023 10:40 AM EDT Office Visit Neurology [facility] [place] [address] [facility] [place] [address] John Mcelroy, DO [address] [place] [address] 12/18/2023 2:45 PM EDT Imaging Radiology [facility] [facility], [place] [address] [facility] [place] [address] Pending Results Name Type Priority Associated Diagnoses Date /Time SURGICAL PATHOLOGY Pathology Routine Thickened endometrium Abnormal uterine bleeding 11/13/2023 5:07 PM EDT EPIC RADIANT ANALYST PAP DIAGNOSTIC Pathology Routine Cervical polyp 11/13/2023 5:07 PM EDT SURGICAL PATHOLOGY Pathology Routine Cervical polyp 11/13/2023 5:07 PM EDT HUMAN PAPILLOMA VIRUS, PROBE Lab Routine Cervical polyp 11/13/2023 5:07 PM EDT Scheduled Orders Name Type Priority Associated Diagnoses Orde r Schedule EPIC RADIANT ANALYST PAP DIAGNOSTIC Pathology Routine Cervical polyp Expected: 11/13/2023, Expires: 12/12/2024 US PELVIS TRANS-VAGINAL NON-OB Medical Imaging Routine Left ovarian cyst Expected: 12/18/2023, Expires: 12/12/2024 Health Maintenance Due Date Last Done Comments [...] Comments URINE SCREEN, POINT OF CARE (ENTER/EDIT) Routine 11/13/2023 Abnormal uterine bleeding documented in this encounter Results * URINE SCREEN, POINT OF CARE (ENTER/EDIT) (11/13/2023) hCG Beta, Urine Negative Negative Procedural Control Valid? Yes Lot Number [id number] Expiration Date 02/01/2025 Urine 11/13/2023 Monisha Broderick PA-C LAB POINT OF CARE TE ST ENTER/EDIT ORDERABLES documented in this encounter Visit Diagnoses Diagnosis Thickened endometrium- Primary Nonspecific (abnormal) findings on radiological and other examination of genitourinary organs Abnormal uterine bleeding Unspecified disorder of menstruation and other abnormal bleeding from female genital tract Cervical polyp Mucous polyp of cervix Left ovarian cyst Other and unspecified ovarian cyst documented in this encounter Care Teams Utility Aide Relationship Specialty Start Date End Date Deann Escalante DO [facility] [place] [address] PCP - General Family Medicine 05/05/11 documented as of this encounter"
--- OUTSIDE RECORDS SUMMARY | 2024-03-26 09:04 | External Medical Summary ---
Author Name Unknown Address Unknown Organization K01:LABORATORY [facility] [place] - [address] [facility] [address] [facility] [address] Laboratory Report Ordering Provider Test Date Status PEBBLES BPATISTE 11/17/2023 14:17:19 Final Observation Date Value Abnormality Reference (Units ) Status Ferritin 11/17/2023 14:17:19 5 Below low normal 13- 150 (ng/mL) Final Postmenopausal women have hi gher ferritin levels than pre-menopausal women. The above reference interval is based on pre-menopausal women. Performing Location LABORATORY [facility] - [address] [facility] [address]
--- OUTSIDE RECORDS SUMMARY | 2024-03-26 09:04 | External Medical Summary ---
Author Name Unknown Address Unknown Organization K01[facility] [address] [facility] [address] Laboratory Report Ordering Provider Test Date Status PEBBLES BAPTISTE 11/17/2023 14:17:19 Final Observation Date Value Abnormality Reference (Units ) Status WBC, Total 11/17/2023 14:17:19 6.24 4.00-10.8 0 (K/uL) Final RBC 11/17/2023 14:17:19 4.19 3.85-5.15 (M/uL) Final Hemoglobin 11/17/2023 14:17:19 10.2 Below low normal 12 .0-15.3 (g/dL) Final Anemia reflex testing trigge rs on a HGB < 12.0 for Females and HGB < 13.0 for Males in accordance with the WHO Anemia Guidelines
Anemia reflex testing triggers on a HGB < 12.0 for Females and HGB < 13.0 for Males in accordance with the WHO Anemia Guidelines HCT 11/17/2023 14:17:19 34.5 Below low normal 36. 0-45.2 (%) Final MCV 11/17/2023 14:17:19 82.3 81.5-97.5 (fL) Final MCH 11/17/2023 14:17:19 24.3 27.0-34.0 (pg) Final MCHC 11/17/2023 14:17:19 29.6 32.0-36.0 (g/dL) Final RDW 11/17/2023 14:17:19 13.5 11.5-15.5 (%) Final Platelets 11/17/2023 14:17:19 383 140-400 (K /uL) Final MPV 11/17/2023 14:17:19 10.5 6.6-11.1 ( fL) Final Nucleated erythrocytes/100 leukocytes [Ratio] in Blood by Automated count 11/17/2023 14:17:19 0 <=0 (/100 WBCs) Final Performing Location LABORATORY [facility] [place] [place] - [facility] [address]. [facility] [address]
--- OUTSIDE RECORDS SUMMARY | 2024-03-26 09:04 | External Medical Summary | Summary of Care ---
Author Name Unknown Organization [facility] Address [address] [place] [address] Phone [phone] Care Team Providers Care Research Engineer Name Role Phone Oliva Escalante DO Primary Care Provider Reason for Referral * Evaluate & Treat - Unlimited Visits (Within 30 days (routine)) - Authorized Specialty Diagnoses / Procedures Referred By Tre ryan Referred To Contact Obstetrics/Gynecology / Gynecology Obstetrics Diagnoses Anemia, unspecified type Oliva Escalante DO [address] [place] [address] Referral ID Status Reason Start Date Expiration Date Visits Requested Visits Authorized [id number] Authorized Specialty Services Required 11/10/2023 999 999 [...] st Contact Info) Description 11/08/2023 Telephone Laboratory, [place] [address] [place] [address] Oliva Escalante DO [address] [place] [address] Test Results (Unexpected or Indeterminate ... Allergies Active Allergy Reactions Criticality Noted Date Comments Dust 02/20/2017 Other Allergy (See Comments) 018 Animal dander Pollen 02/20/2017 documented as of this encounter (statuses as of 11/11/2023) Medications Medication Sig Dispensed Refills Start Date End Date Status RODOLFO 180 MG PO TABS one tablet daily 30 Tab 6 10/29/2011 Active ketotifen fumarate (ZADITOR) 0.025 % ophthalmic solution Instill 1 Drop into both eyes 2 times a day as needed for Allergies. 5 mL 0 05/15/2015 Active Ajovy 225 MG/1.5ML Subcutaneous Solution Prefilled Syringe (Fremanezumab[facility]) INJECT 1.5 ML UNDER THE SKIN [...] as of this encounter (statuses as of 11/11/2023) Active Problems Problem Noted Date Diagnosed Date Bunion of great toe of left foot 02/24/2017 Other chronic allergic conjunctivitis 06/24/2011 Allergic rhinitis 06/24/2011 Atopic dermatitis 06/24/2011 Migraine 05/27/2011 documented as of this encounter (statuses as of 11/11/2023) Immunizations Name Administration Dates Next Due COVID-19 [...] encounter Miscellaneous Notes * Telephone Encounter - Katie Dickey OSA - 11/11/2023 8:20 AM EDT Please advise on scheduling patient for ROTARY PUMP OPERATOR and biopsy soon per . Thank you. * Telephone Encounter - Oliva Escalante DO - 11/10/2023 5:05 PM EDT Please schedule ROTARY PUMP OPERATOR soon- for endometrial biopsy Please attach lab orders in message for pt to go to [facility] * Addendum Note - Oliva Escalante DO - 11/10/2023 5:04 PM EDTAddended by: OLIVA ESCALANTE on: 11/10/2023 05:04 PM Modules accepted: Orders * Telephone Encounter - Vandana Aly OSA - 11/08/2023 1:55 AM EDT Images from the original note were not included. Hello- The radiologist discovered an unexpected or indeterminate finding on Cici Hebert ([id number]) and asks that you review the following report. Exam End Date Exam End Time 11/06/2023 3:31 PM US PELVIS TRANS-VAGINAL NON-OB Order: [id number] Status: Final result Visible to patient: Yes (seen) Next appt: 11/17/2023 at 04:00 PM in *Neuro* (Tarah Ramos PA-C) Dx: Menometrorrhagia 0 Result Notes Findings Acuity Unexpected or Indeterminate Details Reading Physician Reading Date Result Priority Mitchel Cruz MD [phone] 11/07/2023 Narrative & Impression EXAM US PELVIS TRANS-VAGINAL NON-OB; US PELVIS [id number]-5/20/2024 3:31 pm HISTORY VB; menometrorrhagia x over [...] EXAM US PELVIS TRANS-VAGINAL NON-OB; US PELVIS [id number]-2/20/2024 3:31 pm HISTORY VB; menometrorrhagia x over [...] Seen Order Providers Authorizing Provider Encounter Provider ([id number]) Oliva Escalante DO ([id number]) 4 [facility] Status of Other Orders View [...] MADDY Barney Client Service Rep Diagnostic Medicine [place] documented in this encounter Plan of Treatment Upcoming Encounters Date Type Department Care Team (Late st Contact Info) Description 11/17/2023 4:00 PM EDT Office Visit Neurology [facility] [address] [place] [address] [place] [address] Tarah Ramos PA-C [address] [address] [address] 12/01/2023 3:40 PM EDT Office Visit Family Practice [facility] [place] [address] [address] [address] Oliva Escalante DO [address] [facility] [place] [address] 12/15/2023 10:40 AM EDT Office Visit Neurology [address] [place] [address] [facility] [place] [address] John Mcelroy, DO [address] [facility] [place] [address] Scheduled Orders Name Type Priority Associated Diagnoses [...] Type Priority Associated Diagnoses Orde r Schedule ROTARY PUMP OPERATOR REFERRAL OP Referral Within 30 days (routine) [...] 12/01/2020, Additional history exists Mammogram 12/17/2023 12/16/2022, 02/2 02/2021, 04/05/2021, Additional history exists Cologuard 05/07/2024 05/07/2021, [...] Primary documented in this encounter Care Teams Research Engineer Relationship Specialty Start Date End Date Oliva Escalante DO [address] [place] [address] PCP - General Family Medicine 05/05/11 documented as of this encounter
--- OUTSIDE RECORDS SUMMARY | 2024-03-26 09:04 | External Medical Summary ---
Author Name Unknown Address Unknown Organization K01:LABORATORY [place] [address] Laboratory Report Ordering Provider Test Date Status EZ HERNANDEZ 11/13/2023 17:07:00 Final Observation Date Value Abnormality Reference (Units ) Status Human papilloma virus E6+E7 mRNA [Presence] in Cervix by ANGELIA with probe detection 11/13/2023 17:07:00 Negative Not Applicable Final No high/intermediate-risk Hu man Papillomavirus (HPV E6/E7 messenger RNA) detected by nucleic acid amplification.

This assay looks for high/intermediate risk Human Papillomavirus (HPV E6/E7 messenger RNA) by nucleic acid amplification. This assay includes the qualitative detection of HPV types 16,18,31,33,35,39,45,51,52,56,58,59,66 and 68 from cervical specimens.
This assay has been FDA cleared for Thin prep collection vials.
This assay has not been approved for use as a primary screening test for HPV and should be tested in conjunction with a PAP screen.
If collected utilizing a Sure[employer] vial, the collection and specimen preparation of this test was developed, and its performance characteristics determined by [facility]. It has not been cleared or approved by the U.S. Food and Drug Administration (FDA). The FDA has determined that such clearance or approval is not necessary.
This assay has been performed at [facility], [address] [place] [address], [place]. [address]. Performing Location LABORATORY [address] [address]
--- OUTSIDE RECORDS SUMMARY | 2024-03-26 09:04 | External Medical Summary | Summary of Care ---
Author Name Unknown Organization [facility] Address [address] [place] [address] Phone [phone] Care Team Providers Care Manager Landscape Name Role Phone Deann Escalante DO Primary Care Provider Reason for Visit * Reason Onset Date Comments Test Results 11/08/2023 Unexpected or In determinate Result Encounter Details Date Type Department Care Team (Late st Contact Info) Description 11/08/2023 Telephone Laboratory, [place] [address] [place] [address] Deann Escalante DO [address] [place] [address] Test Results (Unexpected or Indeterminate ... Allergies Active Allergy Reactions Criticality Noted Date Comments Dust 02/20/2017 Other Allergy (See Comments) 018 Animal dander Pollen 02/20/2017 documented as of this encounter (statuses as of 11/09/2023) Medications Medication Sig Dispensed Refills Start Date [...] as of this encounter (statuses as of 11/09/2023) Active Problems Problem Noted Date Diagnosed Date Bunion of great toe of left foot 02/24/2017 Other chronic allergic conjunctivitis 06/24/2011 Allergic rhinitis 06/24/2011 Atopic dermatitis 06/24/2011 Migraine 05/27/2011 documented as of this encounter (statuses as of 11/09/2023) Immunizations Name Administration Dates Next Due COVID-19 [...] unexpected or indeterminate finding on Alexey Hebert ([id number]) and asks that you review the following report. Exam End Date Exam End Time 11/06/2023 3:31 PM US PELVIS TRANS-VAGINAL NON-OB Order: [id number] Status: Final result Visible to patient: Yes (seen) Next appt: 11/17/2023 at 04:00 PM in *Neuro* (Tarah Ramos PA-C) Dx: Menometrorrhagia 0 Result Notes Findings Acuity Unexpected or Indeterminate Details Reading Physician Reading Date Result Priority Mitchel Cruz MD [phone] 11/07/2023 Narrative & Impression EXAM US PELVIS TRANS-VAGINAL NON-OB; US PELVIS [id number]-7/20/2024 3:31 pm HISTORY VB; menometrorrhagia x over [...] EXAM US PELVIS TRANS-VAGINAL NON-OB; US PELVIS [id number]-6/20/2024 3:31 pm HISTORY VB; menometrorrhagia x over [...] Seen Order Providers Authorizing Provider Encounter Provider ([id number]) Deann Escalante DO ([id number]) US4 SANGITA OLIVAREZ Status of Other Orders [...] MADDY Barney Client Service Rep Diagnostic Medicine [place] documented in this encounter Plan of Treatment Upcoming Encounters Date Type Department Care Team (Late st Contact Info) Description 11/17/2023 4:00 PM EDT Office Visit Neurology [facility] [place] [address] [facility] [place] [address] Tarah Ramos PA-C [address] [facility] [place] [address] 12/01/2023 3:40 PM EDT Office Visit Family Practice [facility] [address] [facility] [place], [place] [address] Deann Escalante, DO [address] [facility] [place] [address] 12/15/2023 10:40 AM EDT Office Visit Neurology [facility] [place] [address] [facility] [place] [address] John Mcelroy, DO [address] [facility] [place] [address] Health Maintenance Due Date Last Done Comments [...] filedocumented as of this encounter Care Teams Manager Landscape Relationship Specialty Start Date End Date Deann Escalante DO [address] [place] [address] PCP - General Family Medicine 05/05/11 documented as of this encounter
--- OUTSIDE RECORDS SUMMARY | 2024-03-26 09:04 | External Medical Summary | Summary of Care ---
Author Name Unknown Organization [facility] Address [address] [place] [address] Phone [phone] Care Team Providers Care Machine Edge Bander Name Role Phone Oliva Escalante DO Primary Care Provider Reason for Referral * Evaluate & Treat - Unlimited Visits (Within 30 days (routine)) - Authorized Specialty Diagnoses / Procedures Referred By Tre ryan Referred To Contact Obstetrics/Gynecology / Gynecology Obstetrics Diagnoses Anemia, unspecified type Oliva Escalante DO [address] [place] [address] Referral ID Status Reason Start Date Expiration Date Visits Requested Visits Authorized [id number] Authorized Specialty Services Required 11/10/2023 999 999 [...] st Contact Info) Description 11/08/2023 Telephone Laboratory, [place] [address] [place] [address] Oliva Escalante DO [address] [place] [address] Test Results (Unexpected or Indeterminate ... Allergies [...] Ajovy 225 MG/1.5ML Subcutaneous Solution Prefilled Syringe (Fremanezumab-[facility]) INJECT 1.5 ML UNDER THE SKIN [...] encounter Miscellaneous Notes * Telephone Encounter - Jazz Torrez OSA - 11/11/2023 10:37 AM EDT Patient scheduled self on portal for this Thursday. * Telephone Encounter - Katie Dickey OSA - 11/11/2023 8:20 AM EDT Please advise on scheduling patient for MAJOR GIFTS DIRECTOR and biopsy soon per . Thank you. * Telephone Encounter - Oliva Escalante DO - 11/10/2023 5:05 PM EDT Please schedule MAJOR GIFTS DIRECTOR soon- for endometrial biopsy Please attach lab [...] unexpected or indeterminate finding on Cici Hebert ([id number]) and asks that you review the following report. Exam End Date Exam End Time 11/06/2023 3:31 PM US PELVIS TRANS-VAGINAL NON-OB Order: [id number] Status: Final result Visible to patient: Yes (seen) Next appt: 11/17/2023 at 04:00 PM in *Neuro* (Tarah Ramos PA-C) Dx: Menometrorrhagia 0 Result Notes Findings Acuity Unexpected or Indeterminate Details Reading Physician Reading Date Result Priority Mitchel Oliveros MD [phone] 11/07/2023 Narrative & Impression EXAM US PELVIS TRANS-VAGINAL NON-OB; US PELVIS [id number]-8/20/2024 3:31 pm HISTORY VB; menometrorrhagia x over [...] EXAM US PELVIS TRANS-VAGINAL NON-OB; US PELVIS [id number]-8/20/2024 3:31 pm HISTORY VB; menometrorrhagia x over [...] (Final Read) Date Time Phone Pager MITCHEL OLIVEROS 11/07/2023 15:47 Read by Resident Staff Radiologist (Final Read) Date Phone Pager MITCHEL OLIVEROS 11/07/2023 Result History US PELVIS TRANS-VAGINAL NON-OB on 11/07/2023 US PELVIS TRANS-VAGINAL NON-OB: Patient Communication Released Seen Order Providers Authorizing Provider Encounter Provider ([id number]) Oliva Escalante DO ([id number]) GERTRUDE OLIVAREZ Status of Other Orders View Status [...] MADDY Barney Client Service Rep Diagnostic Medicine [place] documented in this encounter Plan of Treatment Upcoming Encounters Date Type Department Care Team (Late st Contact Info) Description 11/13/2023 4:45 PM EDT Office Visit Gynecology/Obstetrics Maddie Olivarez [address] [place] [address] Monisha Broderick PA-C [address] [place] [address] 11/17/2023 4:00 PM EDT Office Visit Neurology [facility] [address] [facility] [address] [place], [place] [address] Tarah Ramos PA-C [address] [facility] [place] [address] 12/01/2023 3:40 PM EDT Office Visit Family Practice [facility] [place] [address] [facility] [address] [place], [place] [address] Oliva Escalante, DO [address] [facility] [place] [address] 12/15/2023 10:40 AM EDT Office Visit Neurology [facility] [address] [facility] [place] [address] John Mcelroy, DO [address] [facility] [place] [address] Scheduled Orders Name Type Priority Associated Diagnoses [...] Type Priority Associated Diagnoses Orde r Schedule MAJOR GIFTS DIRECTOR REFERRAL OP Referral Within 30 days (routine) [...] Primary documented in this encounter Care Teams Machine Edge Bander Relationship Specialty Start Date End Date Oliva Escalante DO [address] [place] [address] PCP - General Family Medicine 05/05/11 documented as of this encounter
--- OUTSIDE RECORDS SUMMARY | 2024-03-26 09:04 | External Medical Summary | Summary of Care ---
Author Name Unknown Organization [facility] Address [address] [place] [address] Phone [phone] Care Team Providers Care Wrapper Selector Name Role Phone Oliva Escalante DO Primary Care Provider Reason for Referral * Evaluate & Treat - Unlimited Visits (Within 30 days (routine)) - Authorized Specialty Diagnoses / Procedures Referred By Tre ryan Referred To Contact Obstetrics/Gynecology / Gynecology Obstetrics Diagnoses Anemia, unspecified type Oliva Escalante DO [address] [place] [address] Referral ID Status Reason Start Date Expiration Date Visits Requested Visits Authorized [id number] Authorized Specialty Services Required 11/10/2023 999 999 [...] st Contact Info) Description 11/08/2023 Telephone Laboratory, [place] [address] [place] [address] Oliva Escalante DO [address] [place] [address] Test Results (Unexpected or Indeterminate ... Allergies [...] Ajovy 225 MG/1.5ML Subcutaneous Solution Prefilled Syringe (Fremanezumab-[facility]) INJECT 1.5 ML UNDER THE SKIN EVERY [...] - 11/10/2023 5:05 PM EDT Please schedule PRINT LINE SUPERVISOR soon- for endometrial biopsy Please attach lab [...] unexpected or indeterminate finding on Cici Hebert ([id number]) and asks that you review the following report. Exam End Date Exam End Time 11/06/2023 3:31 PM US PELVIS TRANS-VAGINAL NON-OB Order: [id number] Status: Final result Visible to patient: Yes (seen) Next appt: 11/17/2023 at 04:00 PM in *Neuro* (Tarah Ramos PA-C) Dx: Menometrorrhagia 0 Result Notes Findings Acuity Unexpected or Indeterminate Details Reading Physician Reading Date Result Priority Mitchel Cruz MD [phone] 11/07/2023 Narrative & Impression EXAM US PELVIS TRANS-VAGINAL NON-OB; US PELVIS [id number]-4/20/2024 3:31 pm HISTORY VB; menometrorrhagia x over [...] EXAM US PELVIS TRANS-VAGINAL NON-OB; US PELVIS [id number]-9/20/2024 3:31 pm HISTORY VB; menometrorrhagia x over [...] Seen Order Providers Authorizing Provider Encounter Provider ([id number]) Oliva Escalante DO ([id number]) US4 SANGITA OLIVAREZ Status of Other Orders [...] MADDY Barney Client Service Rep Diagnostic Medicine [place] documented in this encounter Plan of Treatment Upcoming Encounters Date Type Department Care Team (Late st Contact Info) Description 11/17/2023 4:00 PM EDT Office Visit Neurology [facility] [address] [facility] [place] [address] Tarah Ramos PA-C [address] [facility] [place] [address] 12/01/2023 3:40 PM EDT Office Visit Family Practice [facility] [address] [facility] [place] [address] Oliva Escalante, [address] [facility] [place] [address] 12/15/2023 10:40 AM EDT Office Visit Neurology [facility] [address] [facility] [place] [address] John Mcelroy, DO [address] [facility] [place] [address] Scheduled Orders Name Type Priority Associated Diagnoses [...] Type Priority Associated Diagnoses Orde r Schedule PRINT LINE SUPERVISOR REFERRAL OP Referral Within 30 days (routine) [...] Primary documented in this encounter Care Teams Wrapper Selector Relationship Specialty Start Date End Date Oliva Escalante DO [address] [place] [address] PCP - General Family Medicine 05/05/11 documented as of this encounter
--- OUTSIDE RECORDS SUMMARY | 2024-03-26 09:04 | External Medical Summary ---
Author Name Unknown Address Unknown Organization K01:[facility] [address] [facility] [address] Laboratory Report Ordering Provider Test Date Status PEBBLES BAPTISTE 11/17/2023 14:17:19 Final Observation Date Value Abnormality Reference (Units ) Status Triglyceride 11/17/2023 14:17:19 234 Above high normal <=174 (mg/dL) Final Triglyceride Reference Range s (mg/dL):
<150 Acceptable
150-174 Borderline high
175-499 High
>=500 Very high Cholesterol 11/17/2023 14:17:19 227 Above high normal <200 (mg/dL) Final Total Cholesterol Reference Ranges (mg/dL):
<200 Desirable
200-239 Borderline high
>=240 High HDL 11/17/2023 14:17:19 42 Below low normal >49 (mg/dL) Final HDL Cholesterol Reference Ra nges (mg/dL):
>=60 High (Desirable)
<50 Low (Undesirable) For Females
<40 Low (Undesirable) For Males NON-HDL CHOLESTEROL 11/17/2023 14:17:19 185 Above high normal <=159 (mg/dL) Final Non-HDL Cholesterol Referenc e Range (mg/dL):
<100 Target level for high risk ASCVD patient
<130 Optimal for general population
130-159 Near optimal for general population
160-189 Borderline High
190-219 High
>=220 Very High LDL, (calculated) 11/17/2023 14:17:19 138 Above high n ormal <=129 (mg/dL) Final LDL Cholesterol Reference Ra nges (mg/dL):
<70 Target level for high risk ASCVD patient
<100 Optimal for general population
100-129 Near optimal for general population
130-159 Borderline high
160-189 High
>=190 Very high Performing Location [facility] [facility] [place] [address] [facility] [address]
--- OUTSIDE RECORDS SUMMARY | 2024-03-26 09:04 | External Medical Summary ---
Author Name Unknown Address Unknown Organization K01:[facility] - [address] [facility] [address] Laboratory Report Ordering Provider Test Date Status PEBBLES BAPTISTE 11/17/2023 14:17:19 Final Observation Date Value Abnormality Reference (Units ) Status SYNC LEUKOCYTES IN BLOOD BY AUTOMATED COUNT 11/17/2023 14:17:19 6.24 4.00-10.80 (K/uL) Final Segs 11/17/2023 14:17:19 53.9 40.0-75.0 (%) Final Lymphs % 11/17/2023 14:17:19 35.7 18.0-42.0 (%) Final Monos 11/17/2023 14:17:19 7.5 1.0-11.0 (%) Final Eosinophils 11/17/2023 14:17:19 2.1 0.0-6.0 (%) Final Basos 11/17/2023 14:17:19 0.5 0.0-2.0 (%) Final Immature Granulocyte, Percent 11/17/2023 14:17:19 0.3 0.0-2.0 (%) Final Absolute Segs 11/17/2023 14:17:19 3.36 1.80-7.70 (K/uL) Final Lymphs, absolute 11/17/2023 14:17:19 2.23 1.00-4.80 (K/ul) Final Monos, Abs 11/17/2023 14:17:19 0.47 0.00-1.10 (K/uL) Final Eos, Abs 11/17/2023 14:17:19 0.13 0.00-0.70 (K/uL) Final Basos, Abs 11/17/2023 14:17:19 0.03 0.00-0.20 (K/uL) Final Immature Granulocytes, Number 11/17/2023 14:17:19 0.02 0.00-0.20 (K/uL) Final Performing Location [facility] [place] [address] [facility] [address]
--- OUTSIDE RECORDS SUMMARY | 2024-03-26 09:04 | External Medical Summary ---
Author Name Unknown Address Unknown Organization K01:[facility]ATORY [facility] [place] - [facility] [address] [facility] [address] [place] [address] Laboratory Report Ordering Provider Test Date Status PEBBLES BAPTISTE 11/17/2023 14:17:19 Final Observation Date Value Abnormality Reference (Units ) Status BUN 11/17/2023 14:17:19 7 6-20 (mg/dL) Final Creatinine 11/17/2023 14:17:19 0.8 0.5-1.0 (mg/dL) Final Glomerular filtration rate/1.73 sq M.predicted [Volume Rate/Area] in Serum, Plasma or Blood by Creatinine-based formula (CKD-EPI) 11/17/2023 14:17:19 >90 >=60 (mL/min) Final eGFR is calculated based on the CKD-EPI 2020 equation. Sodium 11/17/2023 14:17:19 142 135-146 (m mol/L) Final Potassium 11/17/2023 14:17:19 4.7 3.5-5.1 (m mol/L) Final Cl 11/17/2023 14:17:19 105 98-107 (mm ol/L) Final CO2 11/17/2023 14:17:19 26 22-32 (mmo l/L) Final Anion gap 11/17/2023 14:17:19 11 7-15 (mmol /L) Final Glucose 11/17/2023 14:17:19 84 70-120 (mg /dL) Final Calcium 11/17/2023 14:17:19 8.9 8.4-10.2 ( mg/dL) Final Performing Location LABORATORY [facility] [place] - [facility] [address] [place] [address]
--- OUTSIDE RECORDS SUMMARY | 2024-03-26 09:05 | External Medical Summary | Summary of Care ---
Author Name Unknown Organization [facility] Address [address] [place] [address] Phone [phone] Care Team Providers Care Dog Breeder Name Role Phone Oliva Escalante DO Primary Care Provider Reason for Visit * Reason Onset Date Comments Medication Refill 10/12/2023 Encounter Details Date Type Department Care Team (Late st Contact Info) Description 10/12/2023 Refill Family Practice [facility] [address] [facility] [place] [address] Oliva Escalante DO [address] [facility] [place] [address] Chronic migraine without aura with status migrainosus, not intractable Allergies Active Allergy Reactions Criticality Noted Date Comments Dust 02/20/2017 Other Allergy (See Comments) 018 Animal dander Pollen 02/20/2017 documented as of this encounter (statuses as of 10/14/2023) Medications Medication Sig Dispensed Refills Start Date End Date Status RODOLFO 180 MG PO TABS one tablet daily 30 Tab 6 10/29/2011 Active ketotifen fumarate (ZADITOR) 0.025 % ophthalmic solution Instill 1 Drop into both eyes 2 times a day as needed for Allergies. 5 mL 0 05/15/2015 Active Ajovy 225 MG/1.5ML Subcutaneous Solution Prefilled Syringe (Fremanezumab-vfrm ) INJECT 1.5 ML UNDER THE SKIN [...] 05/12/2023 Betamethasone Dipropionate 0.05 % External Cream (Diprosone)Indicat [...] PER DAY 20 Tablet 3 10/14/2023 Active Rizatriptan Benzoate 10 MG Oral Tablet (Maxalt)Indication s:Chronic migraine without aura with status migrainosus, not intractable TAKE 1 TABLET BY MOUTH NEEDED FOR MIGRAINE. MAY REPEAT AFTER 2 HOURS UP TO TWO TIMES DAILY, MAXIMUM DAILY DOSE OF 3 TABETS PER DAY 20 Tablet 3 10/12/2023 Discontinue d(Refill) documented as of this encounter (statuses as of 10/14/2023) Active Problems Problem Noted Date Diagnosed Date Bunion of great toe of left foot 02/24/2017 Other chronic allergic conjunctivitis 06/24/2011 Allergic rhinitis 06/24/2011 Atopic dermatitis 06/24/2011 Migraine 05/27/2011 documented as of this encounter (statuses as of 10/14/2023) Immunizations Name Administration Dates Next Due COVID-19 mRNA, LNP-s, No Pre serve, 2-Dose Series (Moderna) 01/27/2021,06/22/2020,05/25/2020 Covid-19, Mrna, Lnp-s, Pf, Bivalent, 30 Mcg, IM, 12 yrs and above (Pfizer) 01/15/2022 H1N1 2009 Influenza, IM 01/25/2009 PPD 07/17/2021,08/21/2016 Seasonal Influenza, PF, 6 M & above, IM , (FluLaval or Fluzone) 11/27/2022,01/15/2022,12/01/2020, 0 20,01/07/2019,02/20/2017 Seasonal Influenza, Quadriva lent, No Preserve, IM 03/10/2016 Seasonal Influenza, Split, I IV3, With Preserve, Inj 11/07/2014,11/07/2013 TD - Tetanus/Diptheria (ADULT) 06/06/2011 TDAP [...] encounter Miscellaneous Notes * Telephone Encounter - Bandar Harkins [facility] - 10/14/2023 9:55 AM EDT Signed Prescriptions: Disp Refills Rizatriptan Benzoate 10 MG Oral Tablet (Ma*20 Tab*3 Sig: TAKE 1 TABLET BY MOUTH NEEDED FOR MIGRAINE. MAY REPEAT AFTER 2 HOURS UP TO TWO TIMES DAILY, MAXIMUM DAILY DOSE OF 3 TABETS PER DAYAuthorizing Provider: OLIVA ESCALANTE User: MACEY HARKINS documented in this encounter Plan of Treatment Upcoming Encounters Date Type Department Care Team (Late st Contact Info) Description 11/17/2023 4:00 PM EDT Office Visit Neurology [facility] [place] [address] [id number] Tarah Ramos PA-C [address] [place] [address] [address] 12/01/2023 3:40 PM EDT Office Visit Family Practice [facility] [place] [address] [place] [address] Oliva Escalante, DO [address] [place] [address] [address] 12/15/2023 10:40 AM EDT Office Visit Neurology [facility] [place] [address], [place] [address] oJhn Mcelroy, DO [address], [place] [address] Health Maintenance Due Date Last Done Comments Hepatitis B Vaccine (1 of 3 - 19+ 3-dose series) 1993 Colonoscopy 10/31/2019 Fecal Occult Blood Test 10/31/2019 Sigmoidoscopy 10/31/2019 Depression Screening 01/29/2021 01/30/2020 COVID-19 Vaccine (2022- season) 2022 01/15/2022, 01/27/2021, 06/22/2020, Additional history exists Diabetes Screening 02/13/2023 02/14/2020, 0 07/06/2018, 02/22/2016 Lipid Panel 07/07/2023 07/06/2018, 02/22/2016 Influenza Vaccine (FLU shot) (#1) 2023 11/27/2022, 01/15/2022, 12/01/2020, Additional history exists Mammogram 12/17/2023 12/16/2022, 03/20, 04/05/2021, Additional history exists Cologuard 05/07/2024 05/07/2021, 04/16, 05/02/2021 Colorectal Cancer Screening 05/07/2024 DTap/Tdap Vaccines (4 - Td or Tdap) [...] as of this encounter Visit Diagnoses Diagnosis Chronic migraine without aura with status migrainosus, not intractable Chronic migraine without aura, without mention of intractable migraine with status migrainosus documented in this encounter Care Teams Dog Breeder Relationship Specialty Start Date End Date Oliva Escalante DO [address] [place] [address] PCP - General Family Medicine 05/05/11 documented as of this encounter
--- OUTSIDE RECORDS SUMMARY | 2024-03-26 09:05 | External Medical Summary | Summary of Care ---
Author Name Unknown Organization [facility] Address [address] [place] [address] Phone [phone] Care Team Providers Care Non Destructive Tester Name Role Phone Oliva Escalante DO Primary Care Provider Reason for Visit * Reason Comments eRx-Medication Refill Encounter Details Date Type Department Care Team (Late st Contact Info) Description 10/10/2023 Refill Family Practice [facility] [address] [facility] [place] [address] Oliva Escalante DO [address] [facility] [place] [address] Chronic migraine without aura with status migrainosus, not intractable Allergies Active Allergy Reactions Criticality Noted Date Comments Dust 02/20/2017 Other Allergy (See Comments) 018 Animal dander Pollen 02/20/2017 documented as of this encounter (statuses as of 10/12/2023) Medications Medication Sig Dispensed Refills Start Date End Date Status RODOLFO 180 MG PO TABS one tablet daily 30 Tab 6 10/29/2011 Active ketotifen fumarate (ZADITOR) 0.025 % ophthalmic solution Instill 1 Drop into both eyes 2 times a day as needed for Allergies. 5 mL 0 05/15/2015 Active Ajovy 225 MG/1.5ML Subcutaneous Solution Prefilled Syringe (Fremanezumab-vfr m) INJECT 1.5 ML UNDER THE SKIN EVERY [...] 05/12/2023 Betamethasone Dipropionate 0.05 % External Cream (Diprosone)Indica [...] TABETS PER DAY 20 Tablet 3 10/12/2023 Active Rizatriptan Benzoate 10 MG Oral Tablet (Maxalt)Indicatio ns:Chronic migraine without aura with status migrainosus, not intractable TAKE 1 TABLET BY MOUTH NEEDED FOR MIGRAINE. MAY REPEAT AFTER 2 HOURS UP TO TWO TIMES DAILY, MAXIMUM DAILY DOSE OF 3 TABETS PER DAY 20 Tablet 3 05/16/2023 10/12/19 24 Discontinued documented as of this encounter (statuses as of 10/12/2023) Active Problems Problem Noted Date Diagnosed Date Bunion of great toe of left foot 02/24/2017 Other chronic allergic conjunctivitis 06/24/2011 Allergic rhinitis 06/24/2011 Atopic dermatitis 06/24/2011 Migraine 05/27/2011 documented as of this encounter (statuses as of 10/12/2023) Immunizations Name Administration Dates Next Due COVID-19 [...] No 11/17/2022 [facility] the [facility]? (Household - for ages [...] encounter Miscellaneous Notes * Telephone Encounter - Roby Bryant, [facility] - 10/12/2023 6:01 PM EDTSigned Prescriptions: Disp Refills Rizatriptan Benzoate 10 MG Oral Tablet (Ma*20 Tab*3 Sig: TAKE 1 TABLET BY MOUTH NEEDED FOR MIGRAINE. MAY REPEAT AFTER 2 HOURS UP TO TWO TIMES DAILY, MAXIMUM DAILY DOSE OF 3 TABETS PER DAYAuthorizing Provider: OLIVA ESCALANTE User: ROBY BRYANT documented in this encounter Plan of Treatment Upcoming Encounters Date Type Department Care Team (Late st Contact Info) Description 11/17/2023 4:00 PM EDT Office Visit Neurology [facility] [place] [address] [place] [address] Tarah Ramos PA-C 200 [facility] [place] [address] 12/01/2023 3:40 PM EDT Office Visit Family Practice [facility] [address] [place] [address] [address] Oliva Escalante, DO 200 [facility] [place] [address] 12/15/2023 10:40 AM EDT Office Visit Neurology [facility] [address] [place] [address] [address] John Mcelroy, DO 200 [facility] [place] [address] Health Maintenance Due Date Last Done Comments Hepatitis B Vaccine (1 of 3 - 19+ 3-dose series) 1994 Colonoscopy 10/31/2019 Fecal Occult Blood Test 10/31/2019 Sigmoidoscopy 10/31/2019 Depression Screening 01/29/2021 01/30/2020 COVID-19 Vaccine (2022-24 season) 2022 01/15/2022, 01/27/2021, 06/22/2020, Additional history exists Diabetes Screening 02/13/2023 02/14/2020, 0 07/06/2018, 02/22/2016 Lipid Panel 07/07/2023 07/06/2018, 02/22/2016 Influenza Vaccine (FLU shot) (#1) 2023 11/27/2022, 01/15/2022, 12/01/2020, Additional history exists Mammogram 12/17/2023 12/16/2022, 03/20, 04/05/2021, Additional history exists Cologuard 05/07/2024 05/07/2021, 04/16, 05/02/2021 Colorectal Cancer Screening 05/07/2024 DTaP,Tdap,and Td Vaccines (4 - Td or Tdap) 04/19/2031 [...] migrainosus documented in this encounter Care Teams Non Destructive Tester Relationship Specialty Start Date End Date Oliva Escalante DO [address] [place] [address] PCP - General Family Medicine 05/05/11 documented as of this encounter
--- OUTSIDE RECORDS SUMMARY | 2024-03-26 09:05 | External Medical Summary | Summary of Care ---
Author Name Unknown Organization [facility] Address [address] [place] [address] Phone [phone] Care Team Providers Care Pediatric Acute Care Unit Nurse Name Role Phone Deann Escalante DO Primary Care Provider Encounter Details Date Type Department Care Team (Late st Contact Info) Description 10/29/2023 Orders Only Family Practice [facility] [place] [address] [facility] [place] [address] Deann Escalante DO 200 [place] [address] Allergies Active Allergy Reactions Criticality Noted Date Comments Dust 02/20/2017 Other Allergy (See Comments) 018 Animal dander Pollen 02/20/2017 documented as of this encounter (statuses as of 10/29/2023) Medications Medication Sig Dispensed Refills Start Date [...] as of this encounter (statuses as of 10/29/2023) Active Problems Problem Noted Date Diagnosed Date Bunion of great toe of left foot 02/24/2017 Other chronic allergic conjunctivitis 06/24/2011 Allergic rhinitis 06/24/2011 Atopic dermatitis 06/24/2011 Migraine 05/27/2011 documented as of this encounter (statuses as of 10/29/2023) Immunizations Name Administration Dates Next Due COVID-19 [...] No 11/17/2022 Does the household have a [facility] source [facility]? (Household - for ages [...] 11/17/2023 4:00 PM EDT Office Visit Neurology [facility] [place] [address] [place] [address] Tarah Ramos PA-C [address] [place] [address] 12/01/2023 3:40 PM EDT Office Visit Family Practice [facility] [place] [address] [place] [address] Deann Escalante, DO [address] [place] [address] 12/15/2023 10:40 AM EDT Office Visit Neurology [facility] [place] [address] [place] [address] [address] John Mcelroy, DO [address] [place] [address] Health Maintenance Due Date Last Done Comments Hepatitis B Vaccine (1 of 3 - 19+ 3-dose series) 1993 Colonoscopy 10/31/2019 Fecal Occult Blood Test 10/31/2019 Sigmoidoscopy 10/31/2019 Depression Screening 01/29/2021 01/30/2020 Diabetes Screening 02/13/2023 10/27/2023, 1 04/16/2019, 07/06/2018, Additional history exists Lipid Panel 07/07/2023 10/27/2023, 06/17, 02/22/2016 COVID-19 Vaccine ( season) 2023 01/15/2022, 01/27/2021, [...] Procedure Name Priority Date/Time Associated Diagnosis Comments CHEMISTRY-OUTSIDE Routine 10/27/2023 documented in this encounter Results * (ABNORMAL) CHEMISTRY-OUTSIDE (10/27/2023) Not all results display below - see scan for full detail OUTSIDE LAB (SEE SCANNED REPORT) Comment:SCAN INCLUDES - LIPI D PANEL, BMP, CBCD CREATININE-OUTSID E LAB 0.66 0.50 - 0.99 MG/DL OUTSIDE LAB (SEE SCANNED REPORT) EGFR-OUTSIDE LAB 108 > OR = 60 ML/MIN/1.7 3M2 OUTSIDE LAB (SEE SCANNED REPORT) POTASSIUM-OUTSIDE LAB 4.5 3.5 - 5.3 MMOL/L OUTSIDE LAB (SEE SCANNED REPORT) GLUCOSE-OUTSIDE LAB 90 65 - 139 MG/DL OUTSIDE LAB (SEE SCANNED REPORT) HOURS FASTING OUTSID E LAB (SEE SCANNED REPORT) TRIGLYCERIDES-OUT SIDE LAB 255(H) <150 MG/DL OUTSIDE LAB (SEE SCANNED REPORT) CHOLESTEROL-OUTSI DE LAB 222(H) <200 MG/DL OUTSIDE LAB (SEE SCANNED REPORT) HDL-OUTSIDE LAB 46(L) > OR = 50 MG/DL OUTSIDE LAB (SEE SCANNED REPORT) CHOL/HDL RATIO-OUTSIDE LAB 4.8 <5.0 (CALC) OUTSIDE LAB (SEE SCANNED REPORT) LDL (CALCULATED)-OUTS [facility] 137(H) <100 MG/DL OUTSIDE LAB (SEE SCANNED REPORT) LDL (DIRECT MEASURE)-OUTSIDE LAB OUTSIDE LAB (SEE SCANNED REPORT) HEMOGLOBIN, V0H-SNJONID LAB OUTSIDE LAB (SEE SCANNED REPORT) PHOSPHORUS-OUTSID E LAB OUTSIDE LAB (SEE SCANNED REPORT) PTH-OUTSIDE LAB OUTS [facility] (SEE SCANNED REPORT) MICROALBUMIN RATIO-OUTSIDE LAB OUTSIDE [facility] B (SEE SCANNED REPORT) PROTEIN, UA-OUTSIDE LAB OUTSIDE LAB (SEE SCANNED REPORT) HGB 9.7(A) 11.7 - 15.5 G/DL OUTSIDE LAB (SEE SCANNED REPORT) 10/27/2023 Deann Escalante DO LABORATORY OUTSIDE LAB (SEE SCANNED REPORT) documented in this encounter Care Teams Pediatric Acute Care Unit Nurse Relationship Specialty Start Date End Date Deann Escalante DO [address] [place] [address] PCP - General Family Medicine 05/05/11 documented as of this encounter
--- NOTE | 2024-03-26 09:16 | Discharge Summary ---
Date of Service March 26, 2024 Admission HPI Per Admitting Provider Patient underwent laparoscopic hysterectomy with bilateral salpingectomy for endometrial intraepithelial discharge instructions medications will be reviewed with patient and IN the discharge records. Will follow-up with office for postop appointment. Neoplasia. Details of surgery and the surgical note. Surgery otherwise was unremarkable. Today patient has been discharged home in stable condition. Discharge Data Procedures Performed Operation Date: 03/25/24 09:20 Actual Procedures p Total Laparoscopic Hysterectomy using Excite Procedure, Bilateral Salpingectomy, Intrauterine Device Removal(Not Applicable) - Connor Adams MD s Cystoscopy(Not Applicable) - Connor Adams MD
== END 2024-03-26 11:26 | disposition home health service (06) ==
LOC: 4E1 07:40 → ASU 07:40